=== PATIENT | male | born 1955 | race African-American/Black ===

== ENCOUNTER 2019-06-11 01:50 | Inpatient (IN) ==
[2019-06-11] MEDS ORDERED: ETOMIDATE 20 MG/10 ML VIAL IV ONE ×2 (02:10→03:09)
[2019-06-11] MEDS ORDERED: ROCURONIUM 100 MG/10 ML VIAL IV ONE (02:10)
[2019-06-11 02:48] LABS: Basophils % 0.3 % (0.0-0.8); Eosinophils # 0.4 10*3/uL (0.0-0.87); Eosinophils % 4.8 % (0.00-10.9); Hematocrit 42.3 VOL% (42.0-52.0); Hemoglobin 13.7 GM/DL (14.0-18.0); Immature Granulocytes % 0.4 %; Immature Granulocytes Absolute 0.04 #; Lymphocytes # 1.4 10*3/uL (1.4-4.0); Lymphocytes % 15.7 % (21.2-54.2); Mean Corpuscular HGB Conc 32.4 GM/DL (32-36); Mean Corpuscular Volume 101.4 FL (87-102); Monocytes % 7.1 % (1.7-12.7); Neutrophils % 71.7 % (38.7-73.9); Platelet Count 262 T/CUMM (130-400); Red Blood Count 4.17 MC/CUMM (3.8-5.5); Red Cell Distribution Width 13.2 % (9.3-17.3); White Blood Count 8.9 T/CUMM (4-12)
[2019-06-11 02:53] LABS: Alanine Aminotransferase 31 U/L (16-61); Albumin 4.1 G/DL (3.4-5.0); Alkaline Phosphatase 105 U/L (45-117); Aspartate Amino Transferase 16 U/L (0-37); Blood Urea Nitrogen 14 MG/DL (7-18); Calcium 9.1 MG/DL (8.5-10.1); Estimated Glom Filtration Rate 100 ML/MIN; Glucose 212 MG/DL (74-106); Osmolality,Calculated 276.1 MOS/KG (273-304); Thyroid Stimulating Hormone 0.968 uIU/ml (0.358-3.74); Total Protein 7.6 G/DL (6.4-8.3)
[2019-06-11 03:00] LABS: PT Patient Result 10.9 SECS (9.8-11.9); Partial Thromboplastin Time 25.1 SECS (23.9-33.8)
[2019-06-11] MEDS ORDERED: HALOPERIDOL 5 MG/ML AMP IM STA (03:09)
[2019-06-11] MEDS ORDERED: ROCURONIUM 100 MG/10 ML VIAL IV STA (03:09)
[2019-06-11 03:11] LABS: ABG Base Excess -1.9 MMOL/L (-2.5-2.5); ABG HCO3 22.8 MMOL/L (20-26); ABG Oxygen Saturation 96.5 % (95-100); ABG PH 7.338 (7.35-7.45); ABG PO2 88.3 MM HG (80-95); ABG TCO2 21.1 MMOL/L (23-27)
[2019-06-11 03:16] LABS: Apearance,Urine CLEAR (Clear); Bacteria,Urine Occasional /HPF (Few); Bilirubin,Urine Negative (Negative); Blood, Urine Negative (Negative); Glucose,Urine (UA) 50 mg/dL (Negative); Ketones,Urine 5 mg/dL (Negative); Nitrite,Urine Negative (Negative); Protein,Urine Negative; RBC,Urine <1 /HPF (0-4); Squamous Epithelial Cell,Urine Occasional /HPF (0-10); Urine Color Yellow (Yellow); Urine Specific Gravity 1.009 (1.001-1.035); Urine Urobilinogen < 2.0 EU/DL (0.2-1.0); WBC,Urine 3 /HPF (0-6)
[2019-06-11 03:23] LABS: Barbiturates Screen,Urine Negative (Negative); Benzodiazepines Screen,Urine Negative (Negative); Cannabinoid Screen,Urine Negative (Negative); Opiate Screen,Urine Positive (Negative); Phencyclidine Screen,Urine Negative (Negative)
[2019-06-11] MEDS ORDERED: DEXTROSE 50% 25 GM/50 ML VIAL IV PRN (03:51)
[2019-06-11] MEDS ORDERED: GLUCAGON 1 MG VIAL IM PRN (03:51)
[2019-06-11] MEDS: MULTIVITAMIN INJ 10 ML in SODIUM CHLORIDE 0.9% 1,000 ML IV SCH (05:08)
[2019-06-11] MEDS: INSULIN REGULAR 100 UNIT/ML SUBCUT SCH ×4 (10:32→21:24)
[2019-06-11] MEDS ORDERED: hydrALAZINE 20 MG/1 ML VIAL IV PRN (10:53)
[2019-06-11] MEDS: cloNIDine 0.2 MG/24 HR PATCH TRANSDERM SCH (11:50)
[2019-06-11] MEDS: CLOPIDOGREL 75 MG TABLET PO SCH (12:15)
[2019-06-11] MEDS: fentaNYL INJ 1,250 MCG in SODIUM CHLORIDE 0.9% 225 ML IV PRN (17:25)
[2019-06-12] MEDS: fentaNYL INJ 1,250 MCG in SODIUM CHLORIDE 0.9% 225 ML IV PRN ×5 (00:35→23:41)
[2019-06-12 04:16] LABS: Basophils % 0.3 % (0.0-0.8); Eosinophils # 0.4 10*3/uL (0.0-0.87); Eosinophils % 3.4 % (0.00-10.9); Hematocrit 42.9 VOL% (42.0-52.0); Hemoglobin 14.2 GM/DL (14.0-18.0); Immature Granulocytes % 0.4 %; Immature Granulocytes Absolute 0.04 #; Lymphocytes % 19.6 % (21.2-54.2); Mean Corpuscular HGB Conc 33.1 GM/DL (32-36); Mean Corpuscular Volume 97.9 FL (87-102); Mean Platelet Volume 9.6 FL (9.6-12.0); Monocytes % 15.6 % (1.7-12.7); Neutrophils % 60.7 % (38.7-73.9); Platelet Count 262 T/CUMM (130-400); Red Blood Count 4.38 MC/CUMM (3.8-5.5); Red Cell Distribution Width 13.4 % (9.3-17.3); White Blood Count 10.2 T/CUMM (4-12)
[2019-06-12 04:31] LABS: Alanine Aminotransferase 29 U/L (16-61); Albumin 3.7 G/DL (3.4-5.0); Alkaline Phosphatase 94 U/L (45-117); Aspartate Amino Transferase 21 U/L (0-37); Bilirubin,Total < 0.39 MG/DL (0.2-1.0); Blood Urea Nitrogen 5 MG/DL (7-18); Calcium 8.7 MG/DL (8.5-10.1); Estimated Glom Filtration Rate 123 ML/MIN; Glucose 201 MG/DL (74-106); Osmolality,Calculated 279.5 MOS/KG (273-304)
[2019-06-12 04:53] LABS: Atypical Lymphocytes Few; Eosinophils 2 % (0-10); Hypochromasia 1+; Lymphocytes 27 % (20-55); Platelet Estimate Normal; Segmented Neutrophils 51 % (50-85); Total Cells Counted 100
[2019-06-12] MEDS: MULTIVITAMIN INJ 10 ML in SODIUM CHLORIDE 0.9% 1,000 ML IV SCH (06:46)
[2019-06-12] MEDS: CLOPIDOGREL 75 MG TABLET PO SCH (09:02)
[2019-06-12] MEDS: INSULIN REGULAR 100 UNIT/ML SUBCUT SCH ×4 (10:03→23:17)
[2019-06-12] MEDS: POTASSIUM CHLORIDE IV SCH ×2 (16:19→23:43)
[2019-06-12] MEDS: MAGNESIUM SULF IV SCH ×2 (16:19→23:43)
[2019-06-12] MEDS: [UNRECOGNIZED DRUG - OTHER] IV SCH ×2 (16:19→23:43)
[2019-06-12] MEDS: ACETAMINOPHEN 325 MG/10.15 ML UDCUP PO PRN (21:45)
[2019-06-13] MEDS: fentaNYL INJ 2,500 MCG in SODIUM CHLORIDE 0.9% 450 ML IV PRN ×2 (01:45→20:40)
[2019-06-13] MEDS: MAGNESIUM SULF IV SCH ×5 (01:49→23:25)
[2019-06-13] MEDS: POTASSIUM CHLORIDE IV SCH ×5 (01:49→23:25)
[2019-06-13] MEDS: [UNRECOGNIZED DRUG - OTHER] IV SCH ×5 (01:49→23:25)
[2019-06-13 03:54] LABS: ABG Base Excess -4.2 MMOL/L (-2.5-2.5); ABG HCO3 20.8 MMOL/L (20-26); ABG Oxygen Saturation 91.6 % (95-100); ABG PCO2 54.5 MM HG (35-48); ABG PH 7.254 (7.35-7.45); ABG PO2 74.1 MM HG (80-95); ABG TCO2 21.3 MMOL/L (23-27); Allen Test Positive; Pt O2 Delivery Device Ventilator
[2019-06-13] MEDS ORDERED: FUROSEMIDE 40 MG/4 ML VIAL IV ONE (09:03)
[2019-06-13] MEDS: ACYCLOVIR INJ 750 MG in SODIUM CHLORIDE 0.9% 250 ML IV SCH ×3 (09:19→23:30)
[2019-06-13] MEDS: CLOPIDOGREL 75 MG TABLET PO SCH (09:19)
[2019-06-13] MEDS: MULTIVITAMIN INJ 10 ML in SODIUM CHLORIDE 0.9% 1,000 ML IV SCH (09:19)
[2019-06-13] MEDS: INSULIN REGULAR 100 UNIT/ML SUBCUT SCH ×4 (10:00→20:13)
[2019-06-13] MEDS: ACETAMINOPHEN 325 MG/10.15 ML UDCUP PO PRN ×2 (10:00→20:01)
[2019-06-13 12:38] LABS: Basophils # 0.1 10*3/uL (0.0-0.2); Basophils % 0.4 % (0.0-0.8); Eosinophils # 0.2 10*3/uL (0.0-0.87); Eosinophils % 1.3 % (0.00-10.9); Hematocrit 41.9 VOL% (42.0-52.0); Hemoglobin 13.4 GM/DL (14.0-18.0); Immature Granulocytes % 1.5 %; Immature Granulocytes Absolute 0.21 #; Lymphocytes # 0.8 10*3/uL (1.4-4.0); Lymphocytes % 5.5 % (21.2-54.2); Mean Corpuscular Volume 102.7 FL (87-102); Monocytes % 10.9 % (1.7-12.7); Neutrophils % 80.4 % (38.7-73.9); Platelet Count 206 T/CUMM (130-400); Red Blood Count 4.08 MC/CUMM (3.8-5.5); Red Cell Distribution Width 13.7 % (9.3-17.3); White Blood Count 14.3 T/CUMM (4-12)
[2019-06-13 12:55] LABS: Albumin 2.7 G/DL (3.4-5.0); Bilirubin,Total 0.6 MG/DL (0.2-1.0); Osmolality,Calculated 275.7 MOS/KG (273-304); Total Protein 6.3 G/DL (6.4-8.3)
[2019-06-13 13:07] LABS: Band Neutrophils 2 % (0-10); Lymphocytes 4 % (20-55); Platelet Estimate Normal; Segmented Neutrophils 83 % (50-85); Total Cells Counted 100
[2019-06-13 13:08] LABS: Macrocytosis Slight
[2019-06-13] MEDS: PHENYLEPHRINE DRIP 40 MG/250 ML PREMIX IV PRN (13:10)
[2019-06-13] MEDS ORDERED: SODIUM CHLORIDE 0.9% 500 ML IV ONE (14:05)
[2019-06-13] MEDS ORDERED: MEROPENEM 2,000 MG in SODIUM CHLORIDE 0.9% 100 ML IV SCH (15:00)
[2019-06-13 15:47] LABS: ABG Base Excess -3.6 MMOL/L (-2.5-2.5); ABG HCO3 20.6 MMOL/L (20-26); ABG Oxygen Saturation 56.9 % (95-100); ABG PCO2 54.6 MM HG (35-48); ABG PH 7.259 (7.35-7.45); ABG TCO2 22.1 MMOL/L (23-27)
[2019-06-13] MEDS: VANCOMYCIN INJ 1,250 MG in SODIUM CHLORIDE 0.9% 250 ML IV SCH (17:10)
[2019-06-13] MEDS: MEROPENEM 500 MG in SODIUM CHLORIDE 0.9% 100 ML IV SCH ×2 (17:10→23:27)
[2019-06-14] MEDS: PHENYLEPHRINE DRIP 40 MG/250 ML PREMIX IV PRN ×3 (00:03→13:06)
[2019-06-14] MEDS: MAGNESIUM SULF IV SCH ×2 (04:11→08:46)
[2019-06-14] MEDS: [UNRECOGNIZED DRUG - OTHER] IV SCH ×2 (04:11→08:46)
[2019-06-14] MEDS: POTASSIUM CHLORIDE IV SCH ×2 (04:11→08:46)
[2019-06-14 04:58] LABS: ABG Base Excess -5.6 MMOL/L (-2.5-2.5); ABG HCO3 19.8 MMOL/L (20-26); ABG Oxygen Saturation 94.3 % (95-100); ABG PCO2 44.5 MM HG (35-48); ABG PH 7.284 (7.35-7.45); ABG PO2 74.7 MM HG (80-95); ABG TCO2 19.1 MMOL/L (23-27); Allen Test Positive; Pt O2 Delivery Device Ventilator
[2019-06-14] MEDS: ACETAMINOPHEN 325 MG/10.15 ML UDCUP PO PRN ×2 (05:00→14:30)
[2019-06-14 05:55] LABS: Albumin 2.1 G/DL (3.4-5.0); Bilirubin,Total 0.6 MG/DL (0.2-1.0); Calcium 7.2 MG/DL (8.5-10.1); Osmolality,Calculated 273.8 MOS/KG (273-304); Total Protein 5.5 G/DL (6.4-8.3)
[2019-06-14] MEDS: VANCOMYCIN INJ 1,250 MG in SODIUM CHLORIDE 0.9% 250 ML IV SCH ×2 (05:58→16:30)
[2019-06-14] MEDS: fentaNYL INJ 2,500 MCG in SODIUM CHLORIDE 0.9% 450 ML IV PRN ×2 (06:21→18:23)
[2019-06-14] MEDS: MEROPENEM 500 MG in SODIUM CHLORIDE 0.9% 100 ML IV SCH ×3 (07:54→23:18)
[2019-06-14] MEDS: ACYCLOVIR INJ 750 MG in SODIUM CHLORIDE 0.9% 250 ML IV SCH ×3 (07:54→23:52)
[2019-06-14] MEDS: CLOPIDOGREL 75 MG TABLET PO SCH (08:24)
[2019-06-14] MEDS: INSULIN REGULAR 100 UNIT/ML SUBCUT SCH ×4 (08:24→23:18)
[2019-06-14] MEDS: MULTIVITAMIN INJ 10 ML in SODIUM CHLORIDE 0.9% 1,000 ML IV SCH (09:07)
[2019-06-14] MEDS ORDERED: LORazepam 2 MG/1 ML VIAL IV PRN (10:58)
[2019-06-14 13:11] LABS: Basophils # 0.1 10*3/uL (0.0-0.2); Basophils % 0.4 % (0.0-0.8); Eosinophils # 0.5 10*3/uL (0.0-0.87); Eosinophils % 3.7 % (0.00-10.9); Hematocrit 37.1 VOL% (42.0-52.0); Hemoglobin 11.7 GM/DL (14.0-18.0); Immature Granulocytes % 1.2 %; Immature Granulocytes Absolute 0.17 #; Lymphocytes # 1.1 10*3/uL (1.4-4.0); Lymphocytes % 7.8 % (21.2-54.2); Mean Corpuscular HGB Conc 31.5 GM/DL (32-36); Mean Corpuscular Volume 104.5 FL (87-102); Monocytes % 13.9 % (1.7-12.7); Platelet Count 186 T/CUMM (130-400); Red Blood Count 3.55 MC/CUMM (3.8-5.5); Red Cell Distribution Width 13.6 % (9.3-17.3); White Blood Count 14.6 T/CUMM (4-12)
[2019-06-14 13:44] LABS: Band Neutrophils 12 % (0-10); Burr Cells Slight; Eosinophils 4 % (0-10); Lymphocytes 5 % (20-55); Metamyelocytes 1 %; Ovalocytes Few; Polychromasia Slight; Segmented Neutrophils 63 % (50-85); Total Cells Counted 100
[2019-06-14 13:45] LABS: Platelet Estimate Adequate
[2019-06-14] MEDS: SODIUM CHLORIDE 0.9% 1,000 ML IV SCH ×2 (19:01→23:27)
[2019-06-15] MEDS: fentaNYL INJ 2,500 MCG in SODIUM CHLORIDE 0.9% 450 ML IV PRN ×4 (00:52→20:55)
[2019-06-15] MEDS: SODIUM CHLORIDE 0.9% 1,000 ML IV SCH ×4 (03:00→18:16)
[2019-06-15 05:47] LABS: Basophils # 0.1 10*3/uL (0.0-0.2); Basophils % 0.4 % (0.0-0.8); Eosinophils # 0.4 10*3/uL (0.0-0.87); Eosinophils % 2.4 % (0.00-10.9); Hematocrit 31.3 VOL% (42.0-52.0); Immature Granulocytes % 0.9 %; Immature Granulocytes Absolute 0.14 #; Lymphocytes # 0.8 10*3/uL (1.4-4.0); Lymphocytes % 5.2 % (21.2-54.2); Mean Corpuscular HGB Conc 31.9 GM/DL (32-36); Mean Corpuscular Volume 104.3 FL (87-102); Monocytes % 12.8 % (1.7-12.7); Neutrophils % 78.3 % (38.7-73.9); Platelet Count 161 T/CUMM (130-400); Red Cell Distribution Width 13.9 % (9.3-17.3); White Blood Count 15.1 T/CUMM (4-12)
[2019-06-15] MEDS: VANCOMYCIN INJ 1,250 MG in SODIUM CHLORIDE 0.9% 250 ML IV SCH ×2 (05:48→18:13)
[2019-06-15 06:13] LABS: Albumin 1.8 G/DL (3.4-5.0); Bilirubin,Total 0.6 MG/DL (0.2-1.0)
[2019-06-15 06:14] LABS: Prealbumin 4.6 MG/DL (20-40)
[2019-06-15 06:39] LABS: Atypical Lymphocytes Few; Band Neutrophils 3 % (0-10); Eosinophils 3 % (0-10); Hypochromasia Slight; Lymphocytes 7 % (20-55); Metamyelocytes 2 %; Segmented Neutrophils 77 % (50-85); Total Cells Counted 100
[2019-06-15 06:40] LABS: Macrocytosis Slight; Platelet Estimate Adequate
[2019-06-15] MEDS: MEROPENEM 500 MG in SODIUM CHLORIDE 0.9% 100 ML IV SCH (08:43)
[2019-06-15] MEDS: CLOPIDOGREL 75 MG TABLET PO SCH (08:44)
[2019-06-15] MEDS: ACYCLOVIR INJ 750 MG in SODIUM CHLORIDE 0.9% 250 ML IV SCH ×2 (08:44→16:39)
[2019-06-15] MEDS: MULTIVITAMIN INJ 10 ML in SODIUM CHLORIDE 0.9% 1,000 ML IV SCH (09:31)
[2019-06-15] MEDS: INSULIN REGULAR 100 UNIT/ML SUBCUT SCH ×3 (09:31→18:16)
[2019-06-15] MEDS: PIPERACILLIN/TAZOBACTAM 3,375 MG in SODIUM CHLORIDE 0.9% 100 ML IV SCH ×2 (13:14→20:58)
[2019-06-16] MEDS: INSULIN REGULAR 100 UNIT/ML SUBCUT SCH ×4 (00:43→18:08)
[2019-06-16] MEDS: ACYCLOVIR INJ 750 MG in SODIUM CHLORIDE 0.9% 250 ML IV SCH ×3 (01:06→16:24)
[2019-06-16] MEDS: SODIUM CHLORIDE 0.9% 1,000 ML IV SCH ×2 (01:07→09:47)
[2019-06-16] MEDS: fentaNYL INJ 2,500 MCG in SODIUM CHLORIDE 0.9% 450 ML IV PRN ×4 (02:28→22:54)
[2019-06-16] MEDS: PIPERACILLIN/TAZOBACTAM 3,375 MG in SODIUM CHLORIDE 0.9% 100 ML IV SCH ×3 (04:28→21:27)
[2019-06-16 04:36] LABS: ABG Base Excess -6.9 MMOL/L (-2.5-2.5); ABG HCO3 18.7 MMOL/L (20-26); ABG Oxygen Saturation 91.6 % (95-100); ABG PCO2 44.2 MM HG (35-48); ABG PH 7.264 (7.35-7.45); ABG PO2 63.3 MM HG (80-95); ABG TCO2 18.3 MMOL/L (23-27); Allen Test Positive; Pt O2 Delivery Device Ventilator
[2019-06-16] MEDS: VANCOMYCIN INJ 1,250 MG in SODIUM CHLORIDE 0.9% 250 ML IV SCH (05:13)
[2019-06-16 05:20] LABS: Basophils % 0.2 % (0.0-0.8); Eosinophils % 7.1 % (0.00-10.9); Hematocrit 29.2 VOL% (42.0-52.0); Hemoglobin 9.2 GM/DL (14.0-18.0); Immature Granulocytes % 1.7 %; Immature Granulocytes Absolute 0.23 #; Lymphocytes # 0.7 10*3/uL (1.4-4.0); Lymphocytes % 4.9 % (21.2-54.2); Mean Corpuscular HGB Conc 31.5 GM/DL (32-36); Mean Corpuscular Volume 102.1 FL (87-102); Mean Platelet Volume 10.1 FL (9.6-12.0); Monocytes % 11.9 % (1.7-12.7); Neutrophils % 74.2 % (38.7-73.9); Platelet Count 155 T/CUMM (130-400); Red Blood Count 2.86 MC/CUMM (3.8-5.5); White Blood Count 13.7 T/CUMM (4-12)
[2019-06-16 05:56] LABS: Albumin 1.5 G/DL (3.4-5.0); Bilirubin,Total 0.6 MG/DL (0.2-1.0); Calcium 7.2 MG/DL (8.5-10.1); Osmolality,Calculated 289.6 MOS/KG (273-304); Total Protein 4.6 G/DL (6.4-8.3)
[2019-06-16 06:33] LABS: Band Neutrophils 2 % (0-10); Eosinophils 9 % (0-10); Lymphocytes 7 % (20-55); Segmented Neutrophils 67 % (50-85); Total Cells Counted 100
[2019-06-16 06:34] LABS: Anisocytosis 1+; Ovalocytes Few; Platelet Estimate Normal
[2019-06-16] MEDS ORDERED: MAGNESIUM SULF RIDER 2 GM in PREMIX 1 EACH IV PRN (08:15)
[2019-06-16] MEDS: CLOPIDOGREL 75 MG TABLET PO SCH (09:12)
[2019-06-16] MEDS: MULTIVITAMIN INJ 10 ML in SODIUM CHLORIDE 0.9% 1,000 ML IV SCH (09:13)
[2019-06-16] MEDS: POTASSIUM CHLORIDE 20 MEQ/15 ML UDCUP PER TUBE PRN ×2 (09:38→12:50)
[2019-06-16] MEDS ORDERED: DILTIAZEM 50 MG/10 ML VIAL IV ONE (11:08)
[2019-06-16] MEDS ORDERED: hydrALAZINE 20 MG/1 ML VIAL IV PRN (11:12)
[2019-06-16] MEDS: FUROSEMIDE 40 MG/4 ML VIAL IV SCH ×4 (11:20→22:55)
[2019-06-16] MEDS: dilTIAZem Drip 125 MG/125 ML PREMIX IV SCH (11:24)
[2019-06-16] MEDS ORDERED: AMIODARONE 150 MG/3 ML VIAL ONE ×2 (11:54→12:27)
[2019-06-16] MEDS ORDERED: AMIODARONE 450 MG/9 ML VIAL IV ONE (11:54)
[2019-06-16] MEDS ORDERED: AMIODARONE INJ 150 MG in DEXTROSE 5% 100 ML IV ONE ×2 (11:56→12:29)
[2019-06-16] MEDS ORDERED: AMIODARONE INJ 450 MG in DEXTROSE 5% 241 ML IV SCH (12:00)
[2019-06-16 12:26] LABS: Thyroid Stimulating Hormone 0.322 uIU/ml (0.358-3.74); Troponin I < 0.015 NG/ML (0.00-0.045)
[2019-06-16] MEDS: ACETAMINOPHEN 325 MG/10.15 ML UDCUP PO PRN (12:49)
[2019-06-16] MEDS: METOPROLOL TARTRATE 25 MG TABLET PO SCH ×2 (14:17→21:28)
[2019-06-16] MEDS: VANCOMYCIN INJ 1,000 MG in SODIUM CHLORIDE 0.9% 250 ML IV SCH (16:23)
[2019-06-16] MEDS: AMIODARONE INJ 450 MG in DEXTROSE 5% 241 ML IV SCH ×2 (20:35→23:00)
[2019-06-17] MEDS: ACYCLOVIR INJ 750 MG in SODIUM CHLORIDE 0.9% 250 ML IV SCH ×3 (00:11→19:47)
[2019-06-17] MEDS: dilTIAZem Drip 125 MG/125 ML PREMIX IV SCH ×3 (00:36→19:44)
[2019-06-17] MEDS: INSULIN REGULAR 100 UNIT/ML SUBCUT SCH ×4 (00:36→18:05)
[2019-06-17 04:45] LABS: ABG Oxygen Saturation 89.1 % (95-100); ABG PCO2 53.8 MM HG (35-48); ABG PH 7.256 (7.35-7.45); ABG PO2 55.8 MM HG (80-95); ABG TCO2 21.7 MMOL/L (23-27)
[2019-06-17 04:50] LABS: Basophils # 0.1 10*3/uL (0.0-0.2); Basophils % 0.3 % (0.0-0.8); Eosinophils # 0.7 10*3/uL (0.0-0.87); Eosinophils % 4.5 % (0.00-10.9); Hematocrit 34.9 VOL% (42.0-52.0); Hemoglobin 10.9 GM/DL (14.0-18.0); Immature Granulocytes Absolute 0.98 #; Lymphocytes # 0.9 10*3/uL (1.4-4.0); Lymphocytes % 5.6 % (21.2-54.2); Mean Corpuscular HGB Conc 31.2 GM/DL (32-36); Mean Corpuscular Volume 103.6 FL (87-102); Mean Platelet Volume 10.1 FL (9.6-12.0); Monocytes % 15.3 % (1.7-12.7); Neutrophils % 68.3 % (38.7-73.9); Platelet Count 189 T/CUMM (130-400); Red Blood Count 3.37 MC/CUMM (3.8-5.5); Red Cell Distribution Width 14.4 % (9.3-17.3); White Blood Count 16.4 T/CUMM (4-12)
[2019-06-17 05:29] LABS: Calcium 7.6 MG/DL (8.5-10.1); Osmolality,Calculated 291.8 MOS/KG (273-304)
[2019-06-17] MEDS: VANCOMYCIN INJ 1,000 MG in SODIUM CHLORIDE 0.9% 250 ML IV SCH ×2 (05:31→17:35)
[2019-06-17] MEDS: PIPERACILLIN/TAZOBACTAM 3,375 MG in SODIUM CHLORIDE 0.9% 100 ML IV SCH ×3 (05:31→21:54)
[2019-06-17 06:26] LABS: Anisocytosis Slight; Band Neutrophils 26 % (0-10); Eosinophils 6 % (0-10); Lymphocytes 7 % (20-55); Metamyelocytes 2 %; Myelocytes 2 %; Platelet Estimate Normal; Segmented Neutrophils 45 % (50-85); Spherocytes Few; Total Cells Counted 100
[2019-06-17] MEDS: fentaNYL INJ 2,500 MCG in SODIUM CHLORIDE 0.9% 450 ML IV PRN ×2 (08:11→18:40)
[2019-06-17 08:48] LABS: Alanine Aminotransferase 30 U/L (16-61); Aspartate Amino Transferase 19 U/L (0-37)
[2019-06-17] MEDS: METOPROLOL TARTRATE 25 MG TABLET PO SCH ×2 (09:57→21:57)
[2019-06-17] MEDS: CLOPIDOGREL 75 MG TABLET PO SCH (09:57)
[2019-06-17] MEDS: AMIODARONE INJ 450 MG in DEXTROSE 5% 241 ML IV SCH ×2 (11:51→14:40)
[2019-06-17] MEDS: LEVOFLOXACIN INJ 500 MG in PREMIX 1 EACH IV SCH (13:30)
[2019-06-17] MEDS: POTASSIUM CHLORIDE RIDER 10 MEQ in PREMIX 1 EACH IV PRN ×2 (16:55→19:45)
[2019-06-18] MEDS: AMIODARONE INJ 450 MG in DEXTROSE 5% 241 ML IV SCH ×2 (00:48→05:40)
[2019-06-18] MEDS: INSULIN REGULAR 100 UNIT/ML SUBCUT SCH ×4 (01:11→18:12)
[2019-06-18] MEDS: POTASSIUM CHLORIDE 20 MEQ/15 ML UDCUP PER TUBE PRN ×4 (02:10→11:32)
[2019-06-18] MEDS: ACYCLOVIR INJ 750 MG in SODIUM CHLORIDE 0.9% 250 ML IV SCH ×3 (03:00→20:35)
[2019-06-18] MEDS: PIPERACILLIN/TAZOBACTAM 3,375 MG in SODIUM CHLORIDE 0.9% 100 ML IV SCH (05:23)
[2019-06-18] MEDS: fentaNYL INJ 2,500 MCG in SODIUM CHLORIDE 0.9% 450 ML IV PRN ×2 (05:23→17:12)
[2019-06-18] MEDS: VANCOMYCIN INJ 1,000 MG in SODIUM CHLORIDE 0.9% 250 ML IV SCH ×2 (05:25→16:33)
[2019-06-18 05:32] LABS: Basophils # 0.1 10*3/uL (0.0-0.2); Basophils % 0.5 % (0.0-0.8); Eosinophils # 1.1 10*3/uL (0.0-0.87); Hematocrit 29.1 VOL% (42.0-52.0); Hemoglobin 9.6 GM/DL (14.0-18.0); Immature Granulocytes % 5.8 %; Immature Granulocytes Absolute 0.77 #; Lymphocytes # 1.1 10*3/uL (1.4-4.0); Lymphocytes % 8.5 % (21.2-54.2); Mean Corpuscular Volume 100.3 FL (87-102); Mean Platelet Volume 10.3 FL (9.6-12.0); Monocytes % 15.3 % (1.7-12.7); Neutrophils % 61.9 % (38.7-73.9); Platelet Count 181 T/CUMM (130-400); Red Cell Distribution Width 14.6 % (9.3-17.3); White Blood Count 13.2 T/CUMM (4-12)
[2019-06-18 05:51] LABS: Band Neutrophils 2 % (0-10); Eosinophils 6 % (0-10); Lymphocytes 8 % (20-55); Metamyelocytes 1 %; Myelocytes 1 %; Segmented Neutrophils 65 % (50-85); Total Cells Counted 100
[2019-06-18 05:52] LABS: Hypochromasia Slight
[2019-06-18 05:53] LABS: Macrocytosis Slight; Platelet Estimate Adequate
[2019-06-18] MEDS: cloNIDine 0.2 MG/24 HR PATCH TRANSDERM SCH (08:41)
[2019-06-18] MEDS: METOPROLOL TARTRATE 25 MG TABLET PO SCH ×2 (08:41→21:52)
[2019-06-18] MEDS: CLOPIDOGREL 75 MG TABLET PO SCH (08:42)
[2019-06-18] MEDS: dilTIAZem Drip 125 MG/125 ML PREMIX IV SCH ×2 (09:01→21:55)
[2019-06-18] MEDS: LEVOFLOXACIN INJ 500 MG in PREMIX 1 EACH IV SCH (11:32)
[2019-06-18] MEDS: AMIODARONE 200 MG TABLET PO SCH ×2 (13:41→21:52)
[2019-06-18] MEDS: FUROSEMIDE 40 MG/4 ML VIAL IV SCH (16:34)
[2019-06-19] MEDS: ACYCLOVIR INJ 750 MG in SODIUM CHLORIDE 0.9% 250 ML IV SCH ×3 (03:44→21:57)
[2019-06-19] MEDS: fentaNYL INJ 2,500 MCG in SODIUM CHLORIDE 0.9% 450 ML IV PRN ×2 (03:45→12:51)
[2019-06-19 04:42] LABS: ABG Base Excess 3.1 MMOL/L (-2.5-2.5); ABG HCO3 27.1 MMOL/L (20-26); ABG Oxygen Saturation 96.8 % (95-100); ABG PCO2 49.8 MM HG (35-48); ABG PH 7.374 (7.35-7.45); ABG PO2 83.1 MM HG (80-95); ABG TCO2 26.5 MMOL/L (23-27); Allen Test Positive; Pt O2 Delivery Device Ventilator
[2019-06-19] MEDS: INSULIN REGULAR 100 UNIT/ML SUBCUT SCH ×4 (04:43→18:16)
[2019-06-19] MEDS: VANCOMYCIN INJ 1,000 MG in SODIUM CHLORIDE 0.9% 250 ML IV SCH ×2 (04:45→16:37)
[2019-06-19 06:14] LABS: Basophils % 0.3 % (0.0-0.8); Eosinophils # 0.9 10*3/uL (0.0-0.87); Eosinophils % 6.5 % (0.00-10.9); Hematocrit 30.7 VOL% (42.0-52.0); Immature Granulocytes % 5.1 %; Lymphocytes # 0.8 10*3/uL (1.4-4.0); Lymphocytes % 6.1 % (21.2-54.2); Mean Corpuscular HGB Conc 32.6 GM/DL (32-36); Mean Corpuscular Volume 100.7 FL (87-102); Mean Platelet Volume 10.2 FL (9.6-12.0); Monocytes % 11.5 % (1.7-12.7); Neutrophils % 70.5 % (38.7-73.9); Platelet Count 261 T/CUMM (130-400); Red Blood Count 3.05 MC/CUMM (3.8-5.5); Red Cell Distribution Width 14.3 % (9.3-17.3); White Blood Count 13.7 T/CUMM (4-12)
[2019-06-19 06:32] LABS: Eosinophils 8 % (0-10); Hypochromasia 1+; Lymphocytes 6 % (20-55); Nucleated Red Blood Cells 1 (0-5); Platelet Estimate Adequate; Segmented Neutrophils 81 % (50-85); Total Cells Counted 100
[2019-06-19 06:33] LABS: Macrocytosis Slight
[2019-06-19] MEDS ORDERED: POTASSIUM CHLORIDE 20 MEQ/15 ML UDCUP PER TUBE ONE (09:02)
[2019-06-19] MEDS: FUROSEMIDE 40 MG/4 ML VIAL IV SCH ×2 (09:12→16:15)
[2019-06-19] MEDS: AMIODARONE 200 MG TABLET PO SCH ×2 (09:22→22:28)
[2019-06-19] MEDS: METOPROLOL TARTRATE 25 MG TABLET PO SCH ×2 (09:22→22:26)
[2019-06-19] MEDS: CLOPIDOGREL 75 MG TABLET PO SCH (09:22)
[2019-06-19] MEDS: ASPIRIN CHEW 81 MG TABLET PO SCH (10:00)
[2019-06-19] MEDS: ENOXAPARIN 100 MG/ML SYRINGE SUBCUT SCH ×2 (10:00→22:26)
[2019-06-19] MEDS: LEVOFLOXACIN INJ 500 MG in PREMIX 1 EACH IV SCH (11:20)
[2019-06-19] MEDS: DILTIAZEM 60 MG TABLET PO SCH ×3 (12:59→22:30)
[2019-06-19] MEDS ORDERED: fentaNYL 50 MCG/HR PATCH TRANSDERM SCH (14:30)
[2019-06-19] MEDS: dilTIAZem Drip 125 MG/125 ML PREMIX IV SCH (14:34)
[2019-06-19] MEDS: POTASSIUM CHLORIDE 20 MEQ/15 ML UDCUP PO SCH (22:27)
[2019-06-19] MEDS: ATORVASTATIN 40 MG TABLET PO SCH (22:27)
[2019-06-20] MEDS: INSULIN REGULAR 100 UNIT/ML SUBCUT SCH ×5 (02:45→23:11)
[2019-06-20] MEDS: fentaNYL INJ 2,500 MCG in SODIUM CHLORIDE 0.9% 450 ML IV PRN (02:48)
[2019-06-20] MEDS: ACYCLOVIR INJ 750 MG in SODIUM CHLORIDE 0.9% 250 ML IV SCH ×3 (03:19→20:31)
[2019-06-20] MEDS: dilTIAZem Drip 125 MG/125 ML PREMIX IV SCH ×2 (03:38→11:29)
[2019-06-20 04:33] LABS: ABG HCO3 30.2 MMOL/L (20-26); ABG Oxygen Saturation 99.1 % (95-100); ABG PCO2 42.6 MM HG (35-48); ABG PH 7.469 (7.35-7.45); ABG PO2 310.7 MM HG (80-95); ABG TCO2 31.5 MMOL/L (23-27)
[2019-06-20 06:11] LABS: Basophils # 0.1 10*3/uL (0.0-0.2); Basophils % 0.4 % (0.0-0.8); Hematocrit 27.4 VOL% (42.0-52.0); Hemoglobin 9.1 GM/DL (14.0-18.0); Immature Granulocytes % 5.4 %; Immature Granulocytes Absolute 0.88 #; Lymphocytes # 1.3 10*3/uL (1.4-4.0); Lymphocytes % 8.2 % (21.2-54.2); Mean Corpuscular HGB Conc 33.2 GM/DL (32-36); Mean Platelet Volume 9.9 FL (9.6-12.0); Monocytes % 8.9 % (1.7-12.7); Neutrophils % 71.1 % (38.7-73.9); Platelet Count 286 T/CUMM (130-400); Red Blood Count 2.74 MC/CUMM (3.8-5.5); Red Cell Distribution Width 14.3 % (9.3-17.3); White Blood Count 16.3 T/CUMM (4-12)
[2019-06-20 06:29] LABS: Band Neutrophils 1 % (0-10); Eosinophils 13 % (0-10); Hypochromasia 1+; Lymphocytes 5 % (20-55); Platelet Estimate Adequate; Segmented Neutrophils 75 % (50-85); Total Cells Counted 100
[2019-06-20 06:30] LABS: Macrocytosis Slight
[2019-06-20 06:32] LABS: Albumin 1.4 G/DL (3.4-5.0); Bilirubin,Total 0.4 MG/DL (0.2-1.0); Total Protein 5.7 G/DL (6.4-8.3)
[2019-06-20] MEDS: VANCOMYCIN INJ 1,000 MG in SODIUM CHLORIDE 0.9% 250 ML IV SCH ×2 (07:17→16:51)
[2019-06-20] MEDS: POTASSIUM CHLORIDE 20 MEQ/15 ML UDCUP PO SCH ×2 (08:02→20:49)
[2019-06-20] MEDS: AMIODARONE 200 MG TABLET PO SCH ×2 (08:02→20:48)
[2019-06-20] MEDS: FUROSEMIDE 40 MG/4 ML VIAL IV SCH ×2 (08:02→16:08)
[2019-06-20] MEDS: CLOPIDOGREL 75 MG TABLET PO SCH (08:03)
[2019-06-20] MEDS: METOPROLOL TARTRATE 25 MG TABLET PO SCH ×2 (08:03→20:49)
[2019-06-20] MEDS: DILTIAZEM 60 MG TABLET PO SCH ×4 (08:03→20:48)
[2019-06-20] MEDS: ASPIRIN CHEW 81 MG TABLET PO SCH (08:03)
[2019-06-20] MEDS: POTASSIUM CHLORIDE RIDER 10 MEQ in PREMIX 1 EACH IV PRN ×3 (08:20→09:21)
[2019-06-20] MEDS: ASCORBIC ACID 500 MG TABLET PO SCH ×2 (08:20→20:49)
[2019-06-20] MEDS: ENOXAPARIN 100 MG/ML SYRINGE SUBCUT SCH ×2 (08:53→20:49)
[2019-06-20] MEDS: fentaNYL 100 MCG/HR PATCH TRANSDERM SCH (11:10)
[2019-06-20] MEDS: LEVOFLOXACIN INJ 500 MG in PREMIX 1 EACH IV SCH (11:29)
[2019-06-20] MEDS: ATORVASTATIN 40 MG TABLET PO SCH (20:48)
[2019-06-21] MEDS: ACYCLOVIR INJ 750 MG in SODIUM CHLORIDE 0.9% 250 ML IV SCH ×3 (03:19→19:38)
[2019-06-21 03:53] LABS: Basophils % 0.3 % (0.0-0.8); Eosinophils # 0.9 10*3/uL (0.0-0.87); Eosinophils % 5.4 % (0.00-10.9); Hematocrit 26.4 VOL% (42.0-52.0); Hemoglobin 8.7 GM/DL (14.0-18.0); Immature Granulocytes Absolute 0.64 #; Lymphocytes # 1.4 10*3/uL (1.4-4.0); Lymphocytes % 8.7 % (21.2-54.2); Mean Corpuscular Volume 99.2 FL (87-102); Monocytes % 7.1 % (1.7-12.7); NRBC # 0.02 10*3/uL; Neutrophils % 74.5 % (38.7-73.9); Platelet Count 342 T/CUMM (130-400); Red Blood Count 2.66 MC/CUMM (3.8-5.5); Red Cell Distribution Width 14.2 % (9.3-17.3); White Blood Count 15.9 T/CUMM (4-12)
[2019-06-21] MEDS: VANCOMYCIN INJ 1,000 MG in SODIUM CHLORIDE 0.9% 250 ML IV SCH (04:00)
[2019-06-21 04:13] LABS: Albumin 1.5 G/DL (3.4-5.0); Bilirubin,Total 0.4 MG/DL (0.2-1.0); Calcium 8.1 MG/DL (8.5-10.1); Osmolality,Calculated 292.8 MOS/KG (273-304); Total Protein 5.6 G/DL (6.4-8.3)
[2019-06-21 04:15] LABS: Prealbumin 4.1 MG/DL (20-40)
[2019-06-21] MEDS: POTASSIUM CHLORIDE RIDER 10 MEQ in PREMIX 1 EACH IV PRN ×3 (04:20→19:30)
[2019-06-21] MEDS: POTASSIUM CHLORIDE RIDER 20 MEQ in PREMIX 1 EACH IV PRN ×3 (04:20→17:15)
[2019-06-21 04:29] LABS: Eosinophils 8 % (0-10); Hypochromasia 1+; Lymphocytes 4 % (20-55); Macrocytosis Slight; Nucleated Red Blood Cells 1 (0-5); Ovalocytes Slight; Platelet Estimate Adequate; Segmented Neutrophils 84 % (50-85); Total Cells Counted 100
[2019-06-21] MEDS ORDERED: POTASSIUM CHLORIDE RIDER 200 ML IV ONE (04:33)
[2019-06-21] MEDS: INSULIN REGULAR 100 UNIT/ML SUBCUT SCH ×3 (05:04→17:21)
[2019-06-21] MEDS: ASCORBIC ACID 500 MG TABLET PO SCH ×2 (08:00→20:21)
[2019-06-21] MEDS: POTASSIUM CHLORIDE 20 MEQ/15 ML UDCUP PO SCH ×4 (08:00→20:20)
[2019-06-21] MEDS: AMIODARONE 200 MG TABLET PO SCH ×2 (08:01→20:22)
[2019-06-21] MEDS: METOPROLOL TARTRATE 25 MG TABLET PO SCH ×2 (08:01→20:21)
[2019-06-21] MEDS: FUROSEMIDE 40 MG/4 ML VIAL IV SCH ×2 (08:01→16:49)
[2019-06-21] MEDS: DILTIAZEM 60 MG TABLET PO SCH ×4 (08:01→20:21)
[2019-06-21] MEDS: CLOPIDOGREL 75 MG TABLET PO SCH (08:01)
[2019-06-21] MEDS: ASPIRIN CHEW 81 MG TABLET PO SCH (08:01)
[2019-06-21] MEDS: ENOXAPARIN 100 MG/ML SYRINGE SUBCUT SCH ×3 (08:36→20:38)
[2019-06-21] MEDS: dilTIAZem Drip 125 MG/125 ML PREMIX IV SCH (12:02)
[2019-06-21] MEDS: LEVOFLOXACIN INJ 500 MG in PREMIX 1 EACH IV SCH (12:06)
[2019-06-21] MEDS: ATORVASTATIN 40 MG TABLET PO SCH (20:23)
[2019-06-22] MEDS: INSULIN REGULAR 100 UNIT/ML SUBCUT SCH ×4 (00:06→19:10)
[2019-06-22] MEDS: ACYCLOVIR INJ 750 MG in SODIUM CHLORIDE 0.9% 250 ML IV SCH ×3 (02:36→20:38)
[2019-06-22 04:07] LABS: Basophils % 0.3 % (0.0-0.8); Eosinophils # 0.8 10*3/uL (0.0-0.87); Eosinophils % 7.1 % (0.00-10.9); Hematocrit 27.1 VOL% (42.0-52.0); Hemoglobin 9.1 GM/DL (14.0-18.0); Immature Granulocytes % 3.1 %; Immature Granulocytes Absolute 0.37 #; Lymphocytes # 1.2 10*3/uL (1.4-4.0); Lymphocytes % 10.5 % (21.2-54.2); Mean Corpuscular HGB Conc 33.6 GM/DL (32-36); Mean Corpuscular Volume 98.9 FL (87-102); Monocytes % 5.9 % (1.7-12.7); Neutrophils % 73.1 % (38.7-73.9); Platelet Count 375 T/CUMM (130-400); Red Blood Count 2.74 MC/CUMM (3.8-5.5); White Blood Count 11.8 T/CUMM (4-12)
[2019-06-22] MEDS: VANCOMYCIN INJ 1,000 MG in SODIUM CHLORIDE 0.9% 250 ML IV SCH (04:11)
[2019-06-22 04:23] LABS: Osmolality,Calculated 288.1 MOS/KG (273-304)
[2019-06-22] MEDS: POTASSIUM CHLORIDE RIDER 20 MEQ in PREMIX 1 EACH IV PRN (05:08)
[2019-06-22 05:09] LABS: Allen Test Positive; Pt O2 Delivery Device Ventilator
[2019-06-22 05:10] LABS: ABG Base Excess 13.3 MMOL/L (-2.5-2.5); ABG Oxygen Saturation 96.5 % (95-100); ABG PH 7.508 (7.35-7.45); ABG PO2 77.6 MM HG (80-95); ABG TCO2 34.8 MMOL/L (23-27)
[2019-06-22 05:37] LABS: Band Neutrophils 4 % (0-10); Eosinophils 7 % (0-10); Lymphocytes 7 % (20-55); Metamyelocytes 1 %; Platelet Estimate Normal; Segmented Neutrophils 75 % (50-85); Total Cells Counted 100
[2019-06-22 05:38] LABS: Anisocytosis 1+; Macrocytosis 1+
[2019-06-22] MEDS: POTASSIUM CHLORIDE RIDER 10 MEQ in PREMIX 1 EACH IV PRN (06:16)
[2019-06-22] MEDS: ASCORBIC ACID 500 MG TABLET PO SCH ×2 (08:13→20:38)
[2019-06-22] MEDS: CLOPIDOGREL 75 MG TABLET PO SCH (08:14)
[2019-06-22] MEDS: DILTIAZEM 60 MG TABLET PO SCH ×4 (08:14→20:38)
[2019-06-22] MEDS: POTASSIUM CHLORIDE 20 MEQ/15 ML UDCUP PO SCH ×3 (08:14→20:38)
[2019-06-22] MEDS: ENOXAPARIN 100 MG/ML SYRINGE SUBCUT SCH ×3 (08:14→20:38)
[2019-06-22] MEDS: METOPROLOL TARTRATE 25 MG TABLET PO SCH ×2 (08:14→20:38)
[2019-06-22] MEDS: ASPIRIN CHEW 81 MG TABLET PO SCH (08:14)
[2019-06-22] MEDS: AMIODARONE 200 MG TABLET PO SCH ×2 (08:14→20:38)
[2019-06-22] MEDS: FUROSEMIDE 40 MG/4 ML VIAL IV SCH ×2 (08:15→17:34)
[2019-06-22] MEDS: LEVOFLOXACIN INJ 500 MG in PREMIX 1 EACH IV SCH (12:00)
[2019-06-22] MEDS: dilTIAZem Drip 125 MG/125 ML PREMIX IV SCH (12:01)
[2019-06-23] MEDS: INSULIN REGULAR 100 UNIT/ML SUBCUT SCH ×4 (02:06→18:19)
[2019-06-23] MEDS: ACYCLOVIR INJ 750 MG in SODIUM CHLORIDE 0.9% 250 ML IV SCH ×3 (04:15→18:30)
[2019-06-23 05:23] LABS: Basophils % 0.4 % (0.0-0.8); Eosinophils # 0.7 10*3/uL (0.0-0.87); Eosinophils % 6.8 % (0.00-10.9); Hematocrit 28.5 VOL% (42.0-52.0); Hemoglobin 9.4 GM/DL (14.0-18.0); Lymphocytes # 1.3 10*3/uL (1.4-4.0); Lymphocytes % 12.7 % (21.2-54.2); Mean Platelet Volume 10.1 FL (9.6-12.0); Monocytes % 7.9 % (1.7-12.7); Neutrophils % 68.2 % (38.7-73.9); Platelet Count 440 T/CUMM (130-400); Red Blood Count 2.85 MC/CUMM (3.8-5.5); Red Cell Distribution Width 13.9 % (9.3-17.3); White Blood Count 10.1 T/CUMM (4-12)
[2019-06-23 05:45] LABS: Band Neutrophils 2 % (0-10); Calcium 8.7 MG/DL (8.5-10.1); Eosinophils 10 % (0-10); Lymphocytes 12 % (20-55); Osmolality,Calculated 289.3 MOS/KG (273-304); Segmented Neutrophils 70 % (50-85); Total Cells Counted 100
[2019-06-23 05:46] LABS: Hypochromasia 1+; Macrocytosis Slight
[2019-06-23] MEDS: VANCOMYCIN INJ 1,000 MG in SODIUM CHLORIDE 0.9% 250 ML IV SCH (06:55)
[2019-06-23] MEDS: FUROSEMIDE 40 MG/4 ML VIAL IV SCH ×2 (08:05→15:22)
[2019-06-23] MEDS: POTASSIUM CHLORIDE 20 MEQ/15 ML UDCUP PO SCH ×3 (08:07→20:42)
[2019-06-23] MEDS: ENOXAPARIN 100 MG/ML SYRINGE SUBCUT SCH ×3 (08:07→20:42)
[2019-06-23] MEDS: METOPROLOL TARTRATE 25 MG TABLET PO SCH ×2 (08:08→20:42)
[2019-06-23] MEDS: ASPIRIN CHEW 81 MG TABLET PO SCH (08:08)
[2019-06-23] MEDS: ASCORBIC ACID 500 MG TABLET PO SCH ×2 (08:08→20:42)
[2019-06-23] MEDS: CLOPIDOGREL 75 MG TABLET PO SCH (08:08)
[2019-06-23] MEDS: AMIODARONE 200 MG TABLET PO SCH ×2 (08:08→20:42)
[2019-06-23] MEDS: DILTIAZEM 60 MG TABLET PO SCH ×4 (08:08→20:41)
[2019-06-23] MEDS: fentaNYL 100 MCG/HR PATCH TRANSDERM SCH (10:34)
[2019-06-23] MEDS: LEVOFLOXACIN INJ 500 MG in PREMIX 1 EACH IV SCH (12:25)
[2019-06-23] MEDS ORDERED: POTASSIUM CHLORIDE 20 MEQ/15 ML UDCUP PER TUBE ONE (18:11)
[2019-06-24] MEDS: INSULIN REGULAR 100 UNIT/ML SUBCUT SCH ×4 (00:20→18:53)
[2019-06-24 03:13] LABS: ABG Base Excess 3.8 MMOL/L (-2.5-2.5); ABG HCO3 27.8 MMOL/L (20-26); ABG Oxygen Saturation 96.4 % (95-100); ABG PCO2 41.4 MM HG (35-48); ABG PH 7.443 (7.35-7.45); ABG TCO2 25.5 MMOL/L (23-27)
[2019-06-24 03:14] LABS: Allen Test Positive; Pt O2 Delivery Device Ventilator
[2019-06-24] MEDS: ACYCLOVIR INJ 750 MG in SODIUM CHLORIDE 0.9% 250 ML IV SCH ×3 (03:26→18:54)
[2019-06-24 05:18] LABS: Alanine Aminotransferase 118 U/L (16-61); Alkaline Phosphatase 128 U/L (45-117); Aspartate Amino Transferase 58 U/L (0-37); Bilirubin,Total < 0.39 MG/DL (0.2-1.0); Blood Urea Nitrogen 32 MG/DL (7-18); Estimated Glom Filtration Rate 89 ML/MIN; Glucose 197 MG/DL (74-106); Osmolality,Calculated 290.4 MOS/KG (273-304); Total Protein 7.4 G/DL (6.4-8.3)
[2019-06-24 05:23] LABS: Basophils % 0.4 % (0.0-0.8); Eosinophils # 0.7 10*3/uL (0.0-0.87); Eosinophils % 6.7 % (0.00-10.9); Hematocrit 30.7 VOL% (42.0-52.0); Hemoglobin 10.1 GM/DL (14.0-18.0); Immature Granulocytes % 2.2 %; Immature Granulocytes Absolute 0.23 #; Lymphocytes # 1.2 10*3/uL (1.4-4.0); Lymphocytes % 11.5 % (21.2-54.2); Mean Corpuscular HGB Conc 32.9 GM/DL (32-36); Mean Corpuscular Volume 99.7 FL (87-102); Neutrophils % 71.2 % (38.7-73.9); Platelet Count 483 T/CUMM (130-400); Red Blood Count 3.08 MC/CUMM (3.8-5.5); White Blood Count 10.6 T/CUMM (4-12)
[2019-06-24] MEDS: POTASSIUM CHLORIDE RIDER 20 MEQ in PREMIX 1 EACH IV PRN ×2 (06:00→06:29)
[2019-06-24] MEDS: FUROSEMIDE 40 MG/4 ML VIAL IV SCH ×2 (08:30→16:22)
[2019-06-24] MEDS: AMIODARONE 200 MG TABLET PO SCH ×2 (08:39→20:45)
[2019-06-24] MEDS: DILTIAZEM 60 MG TABLET PO SCH ×4 (08:39→20:46)
[2019-06-24] MEDS: CLOPIDOGREL 75 MG TABLET PO SCH (08:39)
[2019-06-24] MEDS: POTASSIUM CHLORIDE 20 MEQ/15 ML UDCUP PO SCH ×3 (08:40→20:46)
[2019-06-24] MEDS: ASCORBIC ACID 500 MG TABLET PO SCH ×2 (08:40→20:45)
[2019-06-24] MEDS: ASPIRIN CHEW 81 MG TABLET PO SCH (08:40)
[2019-06-24] MEDS: ENOXAPARIN 100 MG/ML SYRINGE SUBCUT SCH ×2 (08:40→20:46)
[2019-06-24] MEDS: METOPROLOL TARTRATE 25 MG TABLET PO SCH ×2 (08:40→20:45)
[2019-06-24] MEDS: VANCOMYCIN INJ 1,000 MG in SODIUM CHLORIDE 0.9% 250 ML IV SCH (11:37)
[2019-06-24] MEDS: LEVOFLOXACIN INJ 500 MG in PREMIX 1 EACH IV SCH (11:39)
[2019-06-25] MEDS: INSULIN REGULAR 100 UNIT/ML SUBCUT SCH ×4 (00:54→17:42)
[2019-06-25] MEDS: ACYCLOVIR INJ 750 MG in SODIUM CHLORIDE 0.9% 250 ML IV SCH ×3 (03:17→18:47)
[2019-06-25 04:03] LABS: ABG Base Excess 1.4 MMOL/L (-2.5-2.5); ABG HCO3 25.4 MMOL/L (20-26); ABG Oxygen Saturation 97.7 % (95-100); ABG PCO2 37.9 MM HG (35-48); ABG PH 7.444 (7.35-7.45); ABG PO2 110.4 MM HG (80-95); ABG TCO2 26.6 MMOL/L (23-27); Allen Test Positive; Pt O2 Delivery Device Ventilator
[2019-06-25 05:16] LABS: Basophils # 0.1 10*3/uL (0.0-0.2); Basophils % 0.4 % (0.0-0.8); Eosinophils # 0.7 10*3/uL (0.0-0.87); Eosinophils % 5.9 % (0.00-10.9); Hematocrit 30.7 VOL% (42.0-52.0); Hemoglobin 10.2 GM/DL (14.0-18.0); Immature Granulocytes % 2.8 %; Immature Granulocytes Absolute 0.35 #; Lymphocytes # 1.3 10*3/uL (1.4-4.0); Lymphocytes % 10.1 % (21.2-54.2); Mean Corpuscular HGB Conc 33.2 GM/DL (32-36); Mean Platelet Volume 9.6 FL (9.6-12.0); Monocytes % 8.7 % (1.7-12.7); Neutrophils % 72.1 % (38.7-73.9); Platelet Count 493 T/CUMM (130-400); Red Cell Distribution Width 13.7 % (9.3-17.3); White Blood Count 12.5 T/CUMM (4-12)
[2019-06-25 05:29] LABS: Calcium 9.1 MG/DL (8.5-10.1); Osmolality,Calculated 291.4 MOS/KG (273-304)
[2019-06-25] MEDS: POTASSIUM CHLORIDE RIDER 20 MEQ in PREMIX 1 EACH IV PRN ×2 (05:55→06:39)
[2019-06-25] MEDS: FUROSEMIDE 40 MG/4 ML VIAL IV SCH ×2 (09:50→15:27)
[2019-06-25] MEDS: DILTIAZEM 60 MG TABLET PO SCH ×4 (10:17→20:51)
[2019-06-25] MEDS: ASPIRIN CHEW 81 MG TABLET PO SCH (10:17)
[2019-06-25] MEDS: METOPROLOL TARTRATE 25 MG TABLET PO SCH ×2 (10:18→20:51)
[2019-06-25] MEDS: cloNIDine 0.2 MG/24 HR PATCH TRANSDERM SCH (10:18)
[2019-06-25] MEDS: CLOPIDOGREL 75 MG TABLET PO SCH (10:18)
[2019-06-25] MEDS: ENOXAPARIN 100 MG/ML SYRINGE SUBCUT SCH (10:18)
[2019-06-25] MEDS: POTASSIUM CHLORIDE 20 MEQ/15 ML UDCUP PO SCH ×3 (10:18→20:51)
[2019-06-25] MEDS: AMIODARONE 200 MG TABLET PO SCH ×2 (10:18→20:51)
[2019-06-25] MEDS: ASCORBIC ACID 500 MG TABLET PO SCH ×2 (11:25→20:52)
[2019-06-25] MEDS: VANCOMYCIN INJ 1,000 MG in SODIUM CHLORIDE 0.9% 250 ML IV SCH (12:26)
[2019-06-26] MEDS: ENOXAPARIN 100 MG/ML SYRINGE SUBCUT SCH ×3 (00:32→21:27)
[2019-06-26] MEDS: INSULIN REGULAR 100 UNIT/ML SUBCUT SCH ×4 (00:33→17:41)
[2019-06-26] MEDS: ACYCLOVIR INJ 750 MG in SODIUM CHLORIDE 0.9% 250 ML IV SCH (04:00)
[2019-06-26 04:32] LABS: Basophils # 0.1 10*3/uL (0.0-0.2); Basophils % 0.4 % (0.0-0.8); Eosinophils # 0.5 10*3/uL (0.0-0.87); Eosinophils % 3.4 % (0.00-10.9); Hematocrit 32.4 VOL% (42.0-52.0); Hemoglobin 10.5 GM/DL (14.0-18.0); Immature Granulocytes % 3.4 %; Immature Granulocytes Absolute 0.51 #; Lymphocytes # 1.6 10*3/uL (1.4-4.0); Lymphocytes % 10.6 % (21.2-54.2); Mean Corpuscular HGB Conc 32.4 GM/DL (32-36); Mean Corpuscular Volume 100.6 FL (87-102); Monocytes % 11.1 % (1.7-12.7); Neutrophils % 71.1 % (38.7-73.9); Platelet Count 534 T/CUMM (130-400); Red Blood Count 3.22 MC/CUMM (3.8-5.5); Red Cell Distribution Width 13.3 % (9.3-17.3); White Blood Count 14.9 T/CUMM (4-12)
[2019-06-26 04:51] LABS: Calcium 9.2 MG/DL (8.5-10.1); Osmolality,Calculated 290.5 MOS/KG (273-304)
[2019-06-26 04:53] LABS: Band Neutrophils 1 % (0-10); Eosinophils 6 % (0-10); Hypochromasia 1+; Lymphocytes 10 % (20-55); Platelet Estimate Adequate; Segmented Neutrophils 75 % (50-85); Total Cells Counted 100
[2019-06-26] MEDS: ALBUTEROL/IPRATROPIUM 3 ML NEB RESP TX SCH ×3 (08:00→20:15)
[2019-06-26] MEDS: FUROSEMIDE 40 MG/4 ML VIAL IV SCH (09:46)
[2019-06-26] MEDS: POTASSIUM CHLORIDE 20 MEQ/15 ML UDCUP PO SCH ×3 (09:47→21:18)
[2019-06-26] MEDS: DILTIAZEM 60 MG TABLET PO SCH ×4 (09:47→21:17)
[2019-06-26] MEDS: METOPROLOL TARTRATE 25 MG TABLET PO SCH ×2 (09:47→21:18)
[2019-06-26] MEDS: ASPIRIN CHEW 81 MG TABLET PO SCH (09:47)
[2019-06-26] MEDS: CLOPIDOGREL 75 MG TABLET PO SCH (09:47)
[2019-06-26] MEDS: AMIODARONE 200 MG TABLET PO SCH ×2 (09:47→21:18)
[2019-06-26] MEDS: ASCORBIC ACID 500 MG TABLET PO SCH ×2 (09:48→21:18)
[2019-06-26] MEDS ORDERED: fentaNYL 100 MCG/HR PATCH TRANSDERM SCH (11:00)
[2019-06-26] MEDS: cefTRIAXone 1,000 MG in SYRINGE 1 EACH IV SCH (12:00)
[2019-06-27] MEDS: INSULIN REGULAR 100 UNIT/ML SUBCUT SCH ×4 (00:04→18:18)
[2019-06-27 03:30] LABS: Basophils # 0.1 10*3/uL (0.0-0.2); Basophils % 0.7 % (0.0-0.8); Eosinophils # 0.2 10*3/uL (0.0-0.87); Eosinophils % 1.4 % (0.00-10.9); Hematocrit 40.5 VOL% (42.0-52.0); Hemoglobin 12.9 GM/DL (14.0-18.0); Immature Granulocytes % 2.3 %; Immature Granulocytes Absolute 0.28 #; Lymphocytes # 1.1 10*3/uL (1.4-4.0); Lymphocytes % 9.1 % (21.2-54.2); Mean Corpuscular HGB Conc 31.9 GM/DL (32-36); Mean Corpuscular Volume 101.8 FL (87-102); Mean Platelet Volume 9.6 FL (9.6-12.0); Monocytes % 11.6 % (1.7-12.7); Neutrophils % 74.9 % (38.7-73.9); Platelet Count 437 T/CUMM (130-400); Red Blood Count 3.98 MC/CUMM (3.8-5.5); Red Cell Distribution Width 13.5 % (9.3-17.3); White Blood Count 11.9 T/CUMM (4-12)
[2019-06-27 04:04] LABS: Calcium 9.6 MG/DL (8.5-10.1)
[2019-06-27] MEDS: ALBUTEROL/IPRATROPIUM 3 ML NEB RESP TX SCH ×3 (08:28→19:16)
[2019-06-27] MEDS: DILTIAZEM 60 MG TABLET PO SCH ×4 (09:10→21:14)
[2019-06-27] MEDS: AMIODARONE 200 MG TABLET PO SCH ×2 (09:10→21:14)
[2019-06-27] MEDS: ASCORBIC ACID 500 MG TABLET PO SCH ×2 (09:10→21:14)
[2019-06-27] MEDS: METOPROLOL TARTRATE 25 MG TABLET PO SCH ×2 (09:10→21:14)
[2019-06-27] MEDS: ENOXAPARIN 100 MG/ML SYRINGE SUBCUT SCH ×2 (09:10→21:15)
[2019-06-27] MEDS: CLOPIDOGREL 75 MG TABLET PO SCH (09:10)
[2019-06-27] MEDS: POTASSIUM CHLORIDE 20 MEQ/15 ML UDCUP PO SCH ×3 (09:10→21:15)
[2019-06-27] MEDS: ASPIRIN CHEW 81 MG TABLET PO SCH (09:10)
[2019-06-27] MEDS: cefTRIAXone 1,000 MG in SYRINGE 1 EACH IV SCH (09:47)
[2019-06-28] MEDS: INSULIN REGULAR 100 UNIT/ML SUBCUT SCH ×5 (00:59→23:48)
[2019-06-28 04:46] LABS: Basophils # 0.1 10*3/uL (0.0-0.2); Eosinophils # 0.3 10*3/uL (0.0-0.87); Hematocrit 31.6 VOL% (42.0-52.0); Hemoglobin 10.2 GM/DL (14.0-18.0); Immature Granulocytes % 2.3 %; Immature Granulocytes Absolute 0.32 #; Lymphocytes # 1.6 10*3/uL (1.4-4.0); Lymphocytes % 11.6 % (21.2-54.2); Mean Corpuscular HGB Conc 32.3 GM/DL (32-36); Mean Platelet Volume 9.7 FL (9.6-12.0); Monocytes % 11.7 % (1.7-12.7); Neutrophils % 71.4 % (38.7-73.9); Platelet Count 635 T/CUMM (130-400); Red Blood Count 3.13 MC/CUMM (3.8-5.5); Red Cell Distribution Width 14.1 % (9.3-17.3); White Blood Count 13.7 T/CUMM (4-12)
[2019-06-28 05:10] LABS: Albumin 2.3 G/DL (3.4-5.0); Bilirubin,Total 0.4 MG/DL (0.2-1.0); Calcium 9.6 MG/DL (8.5-10.1); Osmolality,Calculated 309.7 MOS/KG (273-304); Total Protein 8.3 G/DL (6.4-8.3)
[2019-06-28] MEDS: ALBUTEROL/IPRATROPIUM 3 ML NEB RESP TX SCH ×3 (06:53→19:27)
[2019-06-28] MEDS: cefTRIAXone 1,000 MG in SYRINGE 1 EACH IV SCH (08:49)
[2019-06-28] MEDS: ENOXAPARIN 100 MG/ML SYRINGE SUBCUT SCH ×2 (08:53→20:39)
[2019-06-28] MEDS: POTASSIUM CHLORIDE 20 MEQ/15 ML UDCUP PO SCH ×3 (08:54→20:38)
[2019-06-28] MEDS: DILTIAZEM 60 MG TABLET PO SCH ×4 (08:54→20:36)
[2019-06-28] MEDS: ASPIRIN CHEW 81 MG TABLET PO SCH (08:54)
[2019-06-28] MEDS: ASCORBIC ACID 500 MG TABLET PO SCH ×2 (08:54→20:39)
[2019-06-28] MEDS: CLOPIDOGREL 75 MG TABLET PO SCH (08:54)
[2019-06-28] MEDS: METOPROLOL TARTRATE 25 MG TABLET PO SCH (08:55)
[2019-06-28] MEDS: AMIODARONE 200 MG TABLET PO SCH ×2 (08:55→20:38)
[2019-06-28] MEDS ORDERED: METOPROLOL TARTRATE 50 MG TABLET PO SCH (10:17)
[2019-06-28 12:06] LABS: Folate 6.9 NG/ML (5.4-24.0)
[2019-06-28] MEDS: MENTHOL/ZINC OXIDE OINT 71 GM JAR TOP SCH ×2 (13:49→20:35)
[2019-06-28] MEDS: INSULIN GLARGINE 100 UNIT/ML SUBCUT SCH (20:38)
[2019-06-28] MEDS ORDERED: INSULIN GLARGINE 100 UNIT/ML SUBCUT SCH (21:00)
[2019-06-29 04:44] LABS: Basophils # 0.2 10*3/uL (0.0-0.2); Basophils % 1.1 % (0.0-0.8); Eosinophils # 0.5 10*3/uL (0.0-0.87); Eosinophils % 3.2 % (0.00-10.9); Hematocrit 33.2 VOL% (42.0-52.0); Hemoglobin 10.1 GM/DL (14.0-18.0); Immature Granulocytes % 2.1 %; Immature Granulocytes Absolute 0.29 #; Lymphocytes % 14.1 % (21.2-54.2); Mean Corpuscular HGB Conc 30.4 GM/DL (32-36); Mean Corpuscular Volume 107.1 FL (87-102); Mean Platelet Volume 9.9 FL (9.6-12.0); Monocytes % 11.4 % (1.7-12.7); Neutrophils % 68.1 % (38.7-73.9); Platelet Count 757 T/CUMM (130-400); Red Cell Distribution Width 14.7 % (9.3-17.3); White Blood Count 13.9 T/CUMM (4-12)
[2019-06-29 05:08] LABS: Albumin 2.4 G/DL (3.4-5.0); Calcium 9.5 MG/DL (8.5-10.1); Total Protein 8.1 G/DL (6.4-8.3)
[2019-06-29] MEDS: INSULIN REGULAR 100 UNIT/ML SUBCUT SCH ×3 (06:01→18:04)
[2019-06-29] MEDS: ALBUTEROL/IPRATROPIUM 3 ML NEB RESP TX SCH ×3 (06:36→19:12)
[2019-06-29] MEDS: ACETAMINOPHEN 325 MG/10.15 ML UDCUP PO PRN ×2 (07:05→18:10)
[2019-06-29] MEDS: cefTRIAXone 1,000 MG in SYRINGE 1 EACH IV SCH (08:02)
[2019-06-29] MEDS: POTASSIUM CHLORIDE 20 MEQ/15 ML UDCUP PO SCH ×3 (08:02→21:17)
[2019-06-29] MEDS: ASPIRIN CHEW 81 MG TABLET PO SCH (08:03)
[2019-06-29] MEDS: DILTIAZEM 60 MG TABLET PO SCH ×4 (08:03→21:35)
[2019-06-29] MEDS: AMIODARONE 200 MG TABLET PO SCH ×2 (08:03→21:11)
[2019-06-29] MEDS: ASCORBIC ACID 500 MG TABLET PO SCH ×2 (08:03→21:11)
[2019-06-29] MEDS: METOPROLOL TARTRATE 100 MG TABLET PO SCH ×2 (08:04→21:34)
[2019-06-29] MEDS: MENTHOL/ZINC OXIDE OINT 71 GM JAR TOP SCH ×2 (08:50→21:26)
[2019-06-29] MEDS: CLOPIDOGREL 75 MG TABLET PO SCH (08:50)
[2019-06-29] MEDS: ENOXAPARIN 100 MG/ML SYRINGE SUBCUT SCH ×2 (08:54→21:35)
[2019-06-29 10:45] LABS: ABG Base Excess 0.9 MMOL/L (-2.5-2.5); ABG HCO3 24.6 MMOL/L (20-26); ABG Oxygen Saturation 63.3 % (95-100); ABG PCO2 34.1 MM HG (35-48); ABG PH 7.461 (7.35-7.45); ABG TCO2 21.9 MMOL/L (23-27)
[2019-06-29 10:46] LABS: ABG PO2 34.6 MM HG (80-95)
[2019-06-29 11:52] LABS: ABG Base Excess 0.7 MMOL/L (-2.5-2.5); ABG Oxygen Saturation 97.3 % (95-100); ABG PH 7.409 (7.35-7.45); ABG PO2 95.6 MM HG (80-95); ABG TCO2 22.9 MMOL/L (23-27)
[2019-06-29] MEDS: methylPREDNISolone SOD SUC 40 MG/1 ML VIAL IV SCH (16:06)
[2019-06-29] MEDS: INSULIN GLARGINE 100 UNIT/ML SUBCUT SCH (21:08)
[2019-06-30] MEDS: INSULIN REGULAR 100 UNIT/ML SUBCUT SCH ×2 (00:12→05:37)
[2019-06-30] MEDS: methylPREDNISolone SOD SUC 40 MG/1 ML VIAL IV SCH ×3 (00:18→19:56)
[2019-06-30] MEDS: ACETAMINOPHEN 325 MG/10.15 ML UDCUP PO PRN ×2 (02:00→16:41)
[2019-06-30 04:36] LABS: ABG Base Excess -1.3 MMOL/L (-2.5-2.5); ABG HCO3 23.3 MMOL/L (20-26); ABG Oxygen Saturation 96.9 % (95-100); ABG PH 7.394 (7.35-7.45); ABG PO2 93.3 MM HG (80-95); ABG TCO2 20.5 MMOL/L (23-27); Allen Test Positive; Pt O2 Delivery Device BIPAP
[2019-06-30 06:20] LABS: Basophils # 0.1 10*3/uL (0.0-0.2); Basophils % 0.6 % (0.0-0.8); Hematocrit 33.3 VOL% (42.0-52.0); Hemoglobin 10.1 GM/DL (14.0-18.0); Immature Granulocytes % 1.1 %; Immature Granulocytes Absolute 0.25 #; Lymphocytes # 1.3 10*3/uL (1.4-4.0); Lymphocytes % 5.6 % (21.2-54.2); Mean Corpuscular HGB Conc 30.3 GM/DL (32-36); Mean Corpuscular Volume 107.1 FL (87-102); Mean Platelet Volume 10.4 FL (9.6-12.0); Monocytes % 4.6 % (1.7-12.7); Neutrophils % 88.1 % (38.7-73.9); Platelet Count 752 T/CUMM (130-400); Red Blood Count 3.11 MC/CUMM (3.8-5.5); Red Cell Distribution Width 15.1 % (9.3-17.3); White Blood Count 22.9 T/CUMM (4-12)
[2019-06-30] MEDS: ALBUTEROL/IPRATROPIUM 3 ML NEB RESP TX SCH ×3 (07:07→19:45)
[2019-06-30 07:15] LABS: Albumin 2.6 G/DL (3.4-5.0); Bilirubin,Total 1.1 MG/DL (0.2-1.0); Calcium 9.4 MG/DL (8.5-10.1); Osmolality,Calculated 328.9 MOS/KG (273-304); Total Protein 8.4 G/DL (6.4-8.3)
[2019-06-30 08:45] LABS: Lymphocytes 6 % (20-55); Segmented Neutrophils 89 % (50-85); Total Cells Counted 100
[2019-06-30] MEDS ORDERED: FUROSEMIDE 40 MG/4 ML VIAL IV ONE (08:46)
[2019-06-30 08:49] LABS: Macrocytosis 1+; Platelet Estimate Increased; Polychromasia Slight
[2019-06-30] MEDS: CLOPIDOGREL 75 MG TABLET PO SCH (09:22)
[2019-06-30] MEDS: POTASSIUM CHLORIDE 20 MEQ/15 ML UDCUP PO SCH (09:22)
[2019-06-30] MEDS: DILTIAZEM 90 MG TABLET PO SCH ×4 (09:22→20:58)
[2019-06-30] MEDS: AMIODARONE 200 MG TABLET PO SCH ×2 (09:23→20:59)
[2019-06-30] MEDS: ASCORBIC ACID 500 MG TABLET PO SCH ×2 (09:23→20:59)
[2019-06-30] MEDS: ASPIRIN CHEW 81 MG TABLET PO SCH (09:23)
[2019-06-30] MEDS: METOPROLOL TARTRATE 100 MG TABLET PO SCH ×2 (09:23→20:59)
[2019-06-30] MEDS: ENOXAPARIN 100 MG/ML SYRINGE SUBCUT SCH ×2 (09:24→21:42)
[2019-06-30] MEDS: MENTHOL/ZINC OXIDE OINT 71 GM JAR TOP SCH ×2 (09:28→21:06)
[2019-06-30] MEDS: CEFEPIME 1,000 MG in SODIUM CHLORIDE 0.9% 100 ML IV SCH ×3 (09:41→20:59)
[2019-06-30] MEDS: DORNASE ALFA 2.5 MG/2.5 ML VIAL RESP TX SCH ×2 (09:45→19:46)
[2019-06-30] MEDS: INSULIN REGULAR DRIP 100 ML IV PRN ×2 (09:50→20:14)
[2019-06-30] MEDS: BUDESONIDE 0.25 MG/2 ML NEB RESP TX SCH ×2 (14:22→19:45)
[2019-07-01] MEDS: ACETAMINOPHEN 325 MG/10.15 ML UDCUP PO PRN ×2 (01:43→08:47)
[2019-07-01] MEDS: CEFEPIME 1,000 MG in SODIUM CHLORIDE 0.9% 100 ML IV SCH ×4 (03:33→21:34)
[2019-07-01 04:11] LABS: ABG Base Excess -3.2 MMOL/L (-2.5-2.5); ABG HCO3 20.9 MMOL/L (20-26); ABG Oxygen Saturation 98.2 % (95-100); ABG PCO2 33.7 MM HG (35-48); ABG PO2 134.2 MM HG (80-95); ABG TCO2 21.9 MMOL/L (23-27); Allen Test Positive; Pt O2 Delivery Device BIPAP
[2019-07-01 05:52] LABS: Basophils # 0.1 10*3/uL (0.0-0.2); Basophils % 0.2 % (0.0-0.8); Hematocrit 30.6 VOL% (42.0-52.0); Hemoglobin 9.1 GM/DL (14.0-18.0); Immature Granulocytes Absolute 0.27 #; Lymphocytes # 1.9 10*3/uL (1.4-4.0); Lymphocytes % 7.1 % (21.2-54.2); Mean Corpuscular HGB Conc 29.7 GM/DL (32-36); Mean Corpuscular Volume 110.5 FL (87-102); Monocytes % 7.9 % (1.7-12.7); Neutrophils % 83.8 % (38.7-73.9); Platelet Count 702 T/CUMM (130-400); Red Blood Count 2.77 MC/CUMM (3.8-5.5); Red Cell Distribution Width 15.4 % (9.3-17.3); White Blood Count 26.7 T/CUMM (4-12)
[2019-07-01 06:34] LABS: Albumin 2.1 G/DL (3.4-5.0); Bilirubin,Total 0.6 MG/DL (0.2-1.0); Calcium 8.9 MG/DL (8.5-10.1); Osmolality,Calculated 341.2 MOS/KG (273-304); Total Protein 7.5 G/DL (6.4-8.3)
[2019-07-01] MEDS: BUDESONIDE 0.25 MG/2 ML NEB RESP TX SCH ×2 (07:14→19:33)
[2019-07-01] MEDS: ALBUTEROL/IPRATROPIUM 3 ML NEB RESP TX SCH ×3 (07:14→19:33)
[2019-07-01] MEDS: DORNASE ALFA 2.5 MG/2.5 ML VIAL RESP TX SCH ×2 (07:26→19:33)
[2019-07-01] MEDS: methylPREDNISolone SOD SUC 40 MG/1 ML VIAL IV SCH ×2 (07:38→20:29)
[2019-07-01 07:59] LABS: Band Neutrophils 6 % (0-10); Lymphocytes 4 % (20-55); Metamyelocytes 3 %; Segmented Neutrophils 76 % (50-85); Total Cells Counted 100
[2019-07-01 08:00] LABS: Anisocytosis 2+; Hypochromasia 1+
[2019-07-01 08:01] LABS: Ovalocytes Slight; Schistocytes Slight
[2019-07-01 08:02] LABS: Platelet Estimate Increased
[2019-07-01] MEDS: AMIODARONE 200 MG TABLET PO SCH ×2 (08:41→21:21)
[2019-07-01] MEDS: ASCORBIC ACID 500 MG TABLET PO SCH ×2 (08:41→21:20)
[2019-07-01] MEDS: CLOPIDOGREL 75 MG TABLET PO SCH (08:41)
[2019-07-01] MEDS: METOPROLOL TARTRATE 100 MG TABLET PO SCH ×2 (08:42→21:20)
[2019-07-01] MEDS: DILTIAZEM 90 MG TABLET PO SCH ×4 (08:42→21:25)
[2019-07-01] MEDS: ASPIRIN CHEW 81 MG TABLET PO SCH (08:42)
[2019-07-01] MEDS: MENTHOL/ZINC OXIDE OINT 71 GM JAR TOP SCH ×2 (09:36→22:11)
[2019-07-01] MEDS: INSULIN REGULAR DRIP 100 ML IV PRN (09:39)
[2019-07-01] MEDS: ENOXAPARIN 100 MG/ML SYRINGE SUBCUT SCH ×2 (09:44→21:44)
[2019-07-02] MEDS: INSULIN REGULAR DRIP 100 ML IV PRN (01:35)
[2019-07-02] MEDS: CEFEPIME 1,000 MG in SODIUM CHLORIDE 0.9% 100 ML IV SCH ×4 (03:02→22:52)
[2019-07-02 04:59] LABS: Allen Test Positive; Pt O2 Delivery Device BIPAP
[2019-07-02 05:01] LABS: ABG Base Excess -2.2 MMOL/L (-2.5-2.5); ABG HCO3 22.5 MMOL/L (20-26); ABG Oxygen Saturation 95.5 % (95-100); ABG PCO2 32.2 MM HG (35-48); ABG PH 7.431 (7.35-7.45); ABG PO2 76.3 MM HG (80-95); ABG TCO2 19.8 MMOL/L (23-27)
[2019-07-02 05:51] LABS: Basophils % 0.2 % (0.0-0.8); Eosinophils % 0.1 % (0.00-10.9); Hematocrit 27.7 VOL% (42.0-52.0); Hemoglobin 8.2 GM/DL (14.0-18.0); Immature Granulocytes % 1.1 %; Immature Granulocytes Absolute 0.25 #; Lymphocytes # 1.2 10*3/uL (1.4-4.0); Lymphocytes % 5.3 % (21.2-54.2); Mean Corpuscular HGB Conc 29.6 GM/DL (32-36); Mean Corpuscular Volume 110.4 FL (87-102); Mean Platelet Volume 10.3 FL (9.6-12.0); Monocytes % 4.3 % (1.7-12.7); NRBC # 0.04 10*3/uL; Platelet Count 581 T/CUMM (130-400); Red Blood Count 2.51 MC/CUMM (3.8-5.5); Red Cell Distribution Width 15.3 % (9.3-17.3); White Blood Count 22.1 T/CUMM (4-12)
[2019-07-02 06:05] LABS: Alanine Aminotransferase 203 U/L (16-61); Albumin 1.9 G/DL (3.4-5.0); Alkaline Phosphatase 108 U/L (45-117); Aspartate Amino Transferase 68 U/L (0-37); Bilirubin,Total < 0.39 MG/DL (0.2-1.0); Blood Urea Nitrogen 100 MG/DL (7-18); Calcium 9.2 MG/DL (8.5-10.1); Estimated Glom Filtration Rate 45 ML/MIN; Glucose 152 MG/DL (74-106); Osmolality,Calculated 342.2 MOS/KG (273-304); Total Protein 7.2 G/DL (6.4-8.3)
[2019-07-02 06:19] LABS: Hypochromasia Slight; Lymphocytes 2 % (20-55); Nucleated Red Blood Cells 1 (0-5); Platelet Estimate Adequate; Segmented Neutrophils 95 % (50-85); Total Cells Counted 100
[2019-07-02] MEDS: BUDESONIDE 0.25 MG/2 ML NEB RESP TX SCH ×2 (07:35→19:35)
[2019-07-02] MEDS: ALBUTEROL/IPRATROPIUM 3 ML NEB RESP TX SCH ×3 (07:35→19:35)
[2019-07-02] MEDS: DORNASE ALFA 2.5 MG/2.5 ML VIAL RESP TX SCH ×2 (07:40→19:45)
[2019-07-02] MEDS: AMIODARONE 200 MG TABLET PO SCH ×2 (09:04→22:49)
[2019-07-02] MEDS: ASPIRIN CHEW 81 MG TABLET PO SCH (09:04)
[2019-07-02] MEDS: ASCORBIC ACID 500 MG TABLET PO SCH ×2 (09:04→22:47)
[2019-07-02] MEDS: CLOPIDOGREL 75 MG TABLET PO SCH (09:04)
[2019-07-02] MEDS: DILTIAZEM 90 MG TABLET PO SCH ×4 (09:05→22:46)
[2019-07-02] MEDS: ENOXAPARIN 100 MG/ML SYRINGE SUBCUT SCH ×2 (09:06→22:50)
[2019-07-02] MEDS: MENTHOL/ZINC OXIDE OINT 71 GM JAR TOP SCH ×2 (09:06→23:10)
[2019-07-02] MEDS: METOPROLOL TARTRATE 100 MG TABLET PO SCH ×2 (09:06→22:49)
[2019-07-02] MEDS: cloNIDine 0.2 MG/24 HR PATCH TRANSDERM SCH (09:07)
[2019-07-02] MEDS: methylPREDNISolone SOD SUC 40 MG/1 ML VIAL IV SCH ×2 (09:07→23:00)
[2019-07-02] MEDS: INSULIN GLARGINE 100 UNIT/ML SUBCUT SCH ×2 (09:10→21:57)
[2019-07-02] MEDS: INSULIN LISPRO 100 UNIT/ML SUBCUT SCH ×3 (11:50→21:49)
[2019-07-03 06:07] LABS: Basophils % 0.1 % (0.0-0.8); Eosinophils % 0.1 % (0.00-10.9); Hematocrit 27.1 VOL% (42.0-52.0); Hemoglobin 7.9 GM/DL (14.0-18.0); Immature Granulocytes % 1.4 %; Immature Granulocytes Absolute 0.24 #; Lymphocytes # 1.1 10*3/uL (1.4-4.0); Lymphocytes % 6.3 % (21.2-54.2); Mean Corpuscular HGB Conc 29.2 GM/DL (32-36); Mean Platelet Volume 10.6 FL (9.6-12.0); Monocytes % 3.2 % (1.7-12.7); NRBC # 0.02 10*3/uL; Neutrophils % 88.9 % (38.7-73.9); Platelet Count 569 T/CUMM (130-400); Red Blood Count 2.42 MC/CUMM (3.8-5.5); Red Cell Distribution Width 15.3 % (9.3-17.3); White Blood Count 16.8 T/CUMM (4-12)
[2019-07-03 06:24] LABS: Hypochromasia 1+; Macrocytosis 1+; Platelet Estimate Increased; Polychromasia Slight
[2019-07-03 06:28] LABS: Albumin 1.9 G/DL (3.4-5.0); Bilirubin,Total 0.4 MG/DL (0.2-1.0); Calcium 8.8 MG/DL (8.5-10.1); Osmolality,Calculated 356.6 MOS/KG (273-304); Total Protein 6.9 G/DL (6.4-8.3)
[2019-07-03] MEDS: INSULIN LISPRO 100 UNIT/ML SUBCUT SCH ×4 (06:41→21:10)
[2019-07-03] MEDS: CEFEPIME 1,000 MG in SODIUM CHLORIDE 0.9% 100 ML IV SCH ×4 (07:10→20:15)
[2019-07-03] MEDS: ALBUTEROL/IPRATROPIUM 3 ML NEB RESP TX SCH ×3 (07:30→19:15)
[2019-07-03] MEDS: BUDESONIDE 0.25 MG/2 ML NEB RESP TX SCH ×2 (07:30→19:15)
[2019-07-03] MEDS: DORNASE ALFA 2.5 MG/2.5 ML VIAL RESP TX SCH ×2 (07:40→19:15)
[2019-07-03] MEDS: ENOXAPARIN 40 MG/0.4 ML SYRINGE SUBCUT SCH (09:20)
[2019-07-03] MEDS: methylPREDNISolone SOD SUC 40 MG/1 ML VIAL IV SCH ×2 (09:20→20:21)
[2019-07-03] MEDS: ASCORBIC ACID 500 MG TABLET PO SCH ×2 (09:21→20:22)
[2019-07-03] MEDS: AMIODARONE 200 MG TABLET PO SCH ×2 (09:21→20:22)
[2019-07-03] MEDS: METOPROLOL TARTRATE 100 MG TABLET PO SCH ×2 (09:21→20:22)
[2019-07-03] MEDS: MENTHOL/ZINC OXIDE OINT 71 GM JAR TOP SCH ×2 (09:22→20:22)
[2019-07-03] MEDS: ASPIRIN CHEW 81 MG TABLET PO SCH (09:22)
[2019-07-03] MEDS: DILTIAZEM 90 MG TABLET PO SCH ×4 (09:27→20:22)
[2019-07-03] MEDS: INSULIN GLARGINE 100 UNIT/ML SUBCUT SCH ×2 (09:28→21:11)
[2019-07-04] MEDS: CEFEPIME 1,000 MG in SODIUM CHLORIDE 0.9% 100 ML IV SCH ×4 (02:58→20:58)
[2019-07-04 06:12] LABS: Basophils % 0.1 % (0.0-0.8); Hematocrit 26.2 VOL% (42.0-52.0); Hemoglobin 7.7 GM/DL (14.0-18.0); Immature Granulocytes % 1.3 %; Immature Granulocytes Absolute 0.22 #; Lymphocytes # 1.1 10*3/uL (1.4-4.0); Lymphocytes % 6.8 % (21.2-54.2); Mean Corpuscular HGB Conc 29.4 GM/DL (32-36); Mean Corpuscular Volume 111.5 FL (87-102); Mean Platelet Volume 11.1 FL (9.6-12.0); Monocytes % 5.2 % (1.7-12.7); Neutrophils % 86.6 % (38.7-73.9); Platelet Count 504 T/CUMM (130-400); Red Blood Count 2.35 MC/CUMM (3.8-5.5); Red Cell Distribution Width 14.8 % (9.3-17.3); White Blood Count 16.6 T/CUMM (4-12)
[2019-07-04 06:35] LABS: Calcium 8.8 MG/DL (8.5-10.1); Osmolality,Calculated 352.2 MOS/KG (273-304)
[2019-07-04 06:37] LABS: Hypochromasia 2+; Lymphocytes 6 % (20-55); Microcytosis Slight; Platelet Estimate Adequate; Segmented Neutrophils 93 % (50-85); Total Cells Counted 100
[2019-07-04 06:40] LABS: Alanine Aminotransferase 295 U/L (16-61); Alkaline Phosphatase 133 U/L (45-117); Aspartate Amino Transferase 59 U/L (0-37); Bilirubin,Total < 0.39 MG/DL (0.2-1.0); Blood Urea Nitrogen 88 MG/DL (7-18); Calcium 8.7 MG/DL (8.5-10.1); Estimated Glom Filtration Rate 59 ML/MIN; Glucose 392 MG/DL (74-106); Osmolality,Calculated 347.4 MOS/KG (273-304); Total Protein 6.6 G/DL (6.4-8.3)
[2019-07-04] MEDS: ALBUTEROL/IPRATROPIUM 3 ML NEB RESP TX SCH ×3 (07:27→19:03)
[2019-07-04] MEDS: BUDESONIDE 0.25 MG/2 ML NEB RESP TX SCH ×2 (07:27→19:03)
[2019-07-04] MEDS: DORNASE ALFA 2.5 MG/2.5 ML VIAL RESP TX SCH (07:27)
[2019-07-04] MEDS: methylPREDNISolone SOD SUC 40 MG/1 ML VIAL IV SCH ×3 (08:46→20:39)
[2019-07-04] MEDS: INSULIN LISPRO 100 UNIT/ML SUBCUT SCH ×4 (08:47→21:14)
[2019-07-04] MEDS: AMIODARONE 200 MG TABLET PO SCH ×2 (08:48→20:42)
[2019-07-04] MEDS: MENTHOL/ZINC OXIDE OINT 71 GM JAR TOP SCH ×2 (08:48→19:45)
[2019-07-04] MEDS: ASPIRIN CHEW 81 MG TABLET PO SCH (08:48)
[2019-07-04] MEDS: METOPROLOL TARTRATE 100 MG TABLET PO SCH ×2 (08:49→20:51)
[2019-07-04] MEDS: ASCORBIC ACID 500 MG TABLET PO SCH ×2 (08:49→20:42)
[2019-07-04] MEDS: ENOXAPARIN 40 MG/0.4 ML SYRINGE SUBCUT SCH (08:50)
[2019-07-04] MEDS: INSULIN GLARGINE 100 UNIT/ML SUBCUT SCH ×3 (08:50→21:14)
[2019-07-04] MEDS: DILTIAZEM 60 MG TABLET PO SCH ×3 (08:52→20:41)
[2019-07-04] MEDS ORDERED: SODIUM CHLORIDE 0.9% 1,000 ML IV PRN (09:26)
[2019-07-04] MEDS ORDERED: INSULIN REGULAR 100 UNIT/ML IV ONE (09:28)
[2019-07-04] MEDS: PANTOPRAZOLE 40 MG VIAL IV SCH (20:42)
[2019-07-05] MEDS: CEFEPIME 1,000 MG in SODIUM CHLORIDE 0.9% 100 ML IV SCH ×4 (02:31→20:39)
[2019-07-05 06:08] LABS: Basophils % 0.1 % (0.0-0.8); Eosinophils # 0.2 10*3/uL (0.0-0.87); Eosinophils % 0.9 % (0.00-10.9); Hematocrit 31.7 VOL% (42.0-52.0); Hemoglobin 9.9 GM/DL (14.0-18.0); Immature Granulocytes % 1.4 %; Immature Granulocytes Absolute 0.24 #; Lymphocytes # 1.7 10*3/uL (1.4-4.0); Lymphocytes % 9.8 % (21.2-54.2); Mean Corpuscular HGB Conc 31.2 GM/DL (32-36); Mean Corpuscular Volume 100.3 FL (87-102); Mean Platelet Volume 10.8 FL (9.6-12.0); Monocytes % 5.3 % (1.7-12.7); Neutrophils % 82.5 % (38.7-73.9); Platelet Count 415 T/CUMM (130-400); Red Blood Count 3.16 MC/CUMM (3.8-5.5); Red Cell Distribution Width 17.7 % (9.3-17.3); White Blood Count 17.5 T/CUMM (4-12)
[2019-07-05 06:25] LABS: Bilirubin,Total 0.8 MG/DL (0.2-1.0); Calcium 8.9 MG/DL (8.5-10.1); Osmolality,Calculated 331.6 MOS/KG (273-304); Total Protein 6.5 G/DL (6.4-8.3)
[2019-07-05] MEDS: ALBUTEROL/IPRATROPIUM 3 ML NEB RESP TX SCH ×3 (07:21→19:09)
[2019-07-05] MEDS: BUDESONIDE 0.25 MG/2 ML NEB RESP TX SCH ×2 (07:21→19:09)
[2019-07-05] MEDS: INSULIN LISPRO 100 UNIT/ML SUBCUT SCH ×4 (07:24→20:54)
[2019-07-05] MEDS: AMIODARONE 200 MG TABLET PO SCH (08:31)
[2019-07-05] MEDS: ASCORBIC ACID 500 MG TABLET PO SCH ×2 (08:31→20:45)
[2019-07-05] MEDS: DILTIAZEM 60 MG TABLET PO SCH ×3 (08:31→20:44)
[2019-07-05] MEDS: ENOXAPARIN 40 MG/0.4 ML SYRINGE SUBCUT SCH (08:32)
[2019-07-05] MEDS: ASPIRIN CHEW 81 MG TABLET PO SCH (08:32)
[2019-07-05] MEDS: METOPROLOL TARTRATE 100 MG TABLET PO SCH ×2 (08:32→20:45)
[2019-07-05] MEDS: methylPREDNISolone SOD SUC 40 MG/1 ML VIAL IV SCH ×2 (08:33→20:35)
[2019-07-05] MEDS: PANTOPRAZOLE 40 MG VIAL IV SCH ×2 (08:42→20:37)
[2019-07-05] MEDS: MENTHOL/ZINC OXIDE OINT 71 GM JAR TOP SCH ×2 (09:01→20:08)
[2019-07-05] MEDS: INSULIN GLARGINE 100 UNIT/ML SUBCUT SCH ×2 (09:01→20:58)
[2019-07-06] MEDS: CEFEPIME 1,000 MG in SODIUM CHLORIDE 0.9% 100 ML IV SCH (02:31)
[2019-07-06 03:47] LABS: Basophils % 0.1 % (0.0-0.8); Eosinophils # 0.2 10*3/uL (0.0-0.87); Hematocrit 32.3 VOL% (42.0-52.0); Hemoglobin 9.8 GM/DL (14.0-18.0); Immature Granulocytes % 1.8 %; Lymphocytes # 1.4 10*3/uL (1.4-4.0); Lymphocytes % 8.7 % (21.2-54.2); Mean Corpuscular HGB Conc 30.3 GM/DL (32-36); Mean Corpuscular Volume 102.2 FL (87-102); Mean Platelet Volume 10.7 FL (9.6-12.0); Monocytes % 4.4 % (1.7-12.7); Platelet Count 393 T/CUMM (130-400); Red Blood Count 3.16 MC/CUMM (3.8-5.5); Red Cell Distribution Width 16.8 % (9.3-17.3); White Blood Count 16.6 T/CUMM (4-12)
[2019-07-06 04:02] LABS: Calcium 8.9 MG/DL (8.5-10.1); Osmolality,Calculated 319.7 MOS/KG (273-304)
[2019-07-06] MEDS: ALBUTEROL/IPRATROPIUM 3 ML NEB RESP TX SCH ×3 (07:24→20:15)
[2019-07-06] MEDS: INSULIN LISPRO 100 UNIT/ML SUBCUT SCH ×4 (07:29→21:40)
[2019-07-06] MEDS: BUDESONIDE 0.25 MG/2 ML NEB RESP TX SCH ×2 (07:32→20:15)
[2019-07-06] MEDS: ENOXAPARIN 40 MG/0.4 ML SYRINGE SUBCUT SCH (09:11)
[2019-07-06] MEDS: PANTOPRAZOLE 40 MG VIAL IV SCH ×2 (09:11→21:44)
[2019-07-06] MEDS: ASCORBIC ACID 500 MG TABLET PO SCH ×2 (09:12→21:43)
[2019-07-06] MEDS: METOPROLOL TARTRATE 100 MG TABLET PO SCH ×2 (09:12→21:44)
[2019-07-06] MEDS: ASPIRIN CHEW 81 MG TABLET PO SCH (09:13)
[2019-07-06] MEDS: DILTIAZEM 60 MG TABLET PO SCH ×3 (09:13→21:43)
[2019-07-06] MEDS: MENTHOL/ZINC OXIDE OINT 71 GM JAR TOP SCH ×2 (09:14→21:44)
[2019-07-06] MEDS: INSULIN GLARGINE 100 UNIT/ML SUBCUT SCH ×2 (09:14→21:47)
[2019-07-06] MEDS: AMIODARONE 200 MG TABLET PO SCH (09:14)
[2019-07-06] MEDS: predniSONE 10 MG TABLET PO SCH (09:14)
[2019-07-06] MEDS: levETIRAcetam 500 MG TABLET PO SCH (21:44)
[2019-07-07 06:21] LABS: Basophils % 0.2 % (0.0-0.8); Eosinophils # 0.8 10*3/uL (0.0-0.87); Hematocrit 32.3 VOL% (42.0-52.0); Hemoglobin 10.1 GM/DL (14.0-18.0); Immature Granulocytes % 3.4 %; Immature Granulocytes Absolute 0.53 #; Lymphocytes # 2.1 10*3/uL (1.4-4.0); Lymphocytes % 13.6 % (21.2-54.2); Mean Corpuscular HGB Conc 31.3 GM/DL (32-36); Mean Corpuscular Volume 97.6 FL (87-102); Mean Platelet Volume 11.1 FL (9.6-12.0); Monocytes % 7.2 % (1.7-12.7); NRBC # 0.02 10*3/uL; Neutrophils % 70.6 % (38.7-73.9); Platelet Count 346 T/CUMM (130-400); Red Blood Count 3.31 MC/CUMM (3.8-5.5); Red Cell Distribution Width 15.9 % (9.3-17.3); White Blood Count 15.7 T/CUMM (4-12)
[2019-07-07 06:37] LABS: Calcium 8.6 MG/DL (8.5-10.1); Osmolality,Calculated 306.9 MOS/KG (273-304)
[2019-07-07 07:04] LABS: Eosinophils 8 % (0-10); Hypochromasia Slight; Lymphocytes 12 % (20-55); Platelet Estimate Adequate; Segmented Neutrophils 75 % (50-85); Total Cells Counted 100
[2019-07-07] MEDS: INSULIN LISPRO 100 UNIT/ML SUBCUT SCH ×4 (07:23→20:31)
[2019-07-07] MEDS: ALBUTEROL/IPRATROPIUM 3 ML NEB RESP TX SCH ×3 (07:30→20:02)
[2019-07-07] MEDS: BUDESONIDE 0.25 MG/2 ML NEB RESP TX SCH ×2 (07:30→20:02)
[2019-07-07] MEDS: ASPIRIN CHEW 81 MG TABLET PO SCH (08:52)
[2019-07-07] MEDS: DILTIAZEM 60 MG TABLET PO SCH ×3 (08:52→20:29)
[2019-07-07] MEDS: MENTHOL/ZINC OXIDE OINT 71 GM JAR TOP SCH ×2 (08:52→20:31)
[2019-07-07] MEDS: ENOXAPARIN 40 MG/0.4 ML SYRINGE SUBCUT SCH (08:53)
[2019-07-07] MEDS: AMIODARONE 200 MG TABLET PO SCH (08:53)
[2019-07-07] MEDS: predniSONE 10 MG TABLET PO SCH (08:53)
[2019-07-07] MEDS: METOPROLOL TARTRATE 100 MG TABLET PO SCH ×2 (08:53→20:30)
[2019-07-07] MEDS: ASCORBIC ACID 500 MG TABLET PO SCH ×2 (08:53→20:30)
[2019-07-07] MEDS: PANTOPRAZOLE 40 MG VIAL IV SCH ×2 (08:53→20:31)
[2019-07-07] MEDS: levETIRAcetam 500 MG TABLET PO SCH ×2 (09:13→20:30)
[2019-07-07] MEDS: INSULIN GLARGINE 100 UNIT/ML SUBCUT SCH ×2 (12:55→20:30)
[2019-07-07] MEDS: POTASSIUM CHLORIDE 20 MEQ/15 ML UDCUP PER TUBE PRN ×3 (16:50→20:39)
[2019-07-08] MEDS: INSULIN LISPRO 100 UNIT/ML SUBCUT SCH ×4 (07:20→21:43)
[2019-07-08] MEDS: BUDESONIDE 0.25 MG/2 ML NEB RESP TX SCH ×2 (07:26→19:15)
[2019-07-08] MEDS: ALBUTEROL/IPRATROPIUM 3 ML NEB RESP TX SCH ×3 (07:26→19:15)
[2019-07-08] MEDS: POTASSIUM CHLORIDE 20 MEQ/15 ML UDCUP PER TUBE PRN ×2 (07:35→09:58)
[2019-07-08] MEDS: MENTHOL/ZINC OXIDE OINT 71 GM JAR TOP SCH ×2 (09:12→22:03)
[2019-07-08] MEDS: ASPIRIN CHEW 81 MG TABLET PO SCH (09:58)
[2019-07-08] MEDS: AMIODARONE 200 MG TABLET PO SCH (09:58)
[2019-07-08] MEDS: INSULIN GLARGINE 100 UNIT/ML SUBCUT SCH ×2 (09:58→22:02)
[2019-07-08] MEDS: DILTIAZEM 60 MG TABLET PO SCH ×4 (09:58→22:00)
[2019-07-08] MEDS: levETIRAcetam 500 MG TABLET PO SCH ×2 (09:58→21:58)
[2019-07-08] MEDS: METOPROLOL TARTRATE 100 MG TABLET PO SCH ×2 (09:58→22:01)
[2019-07-08] MEDS: ENOXAPARIN 40 MG/0.4 ML SYRINGE SUBCUT SCH (09:59)
[2019-07-08] MEDS: PANTOPRAZOLE 40 MG VIAL IV SCH ×2 (09:59→22:01)
[2019-07-08] MEDS: predniSONE 10 MG TABLET PO SCH (09:59)
[2019-07-08] MEDS: ASCORBIC ACID 500 MG TABLET PO SCH ×2 (09:59→21:59)
[2019-07-09] MEDS: ALBUTEROL/IPRATROPIUM 3 ML NEB RESP TX SCH ×3 (07:25→19:26)
[2019-07-09] MEDS: INSULIN LISPRO 100 UNIT/ML SUBCUT SCH ×4 (07:30→21:01)
[2019-07-09 07:32] LABS: Calcium 8.6 MG/DL (8.5-10.1); Prealbumin 23.7 MG/DL (20-40)
[2019-07-09] MEDS: MENTHOL/ZINC OXIDE OINT 71 GM JAR TOP SCH ×2 (08:37→21:00)
[2019-07-09] MEDS: PANTOPRAZOLE 40 MG VIAL IV SCH ×2 (08:53→21:00)
[2019-07-09] MEDS: ASCORBIC ACID 500 MG TABLET PO SCH ×2 (08:55→21:00)
[2019-07-09] MEDS: DILTIAZEM 60 MG TABLET PO SCH ×3 (08:56→21:00)
[2019-07-09] MEDS: AMIODARONE 200 MG TABLET PO SCH (08:57)
[2019-07-09] MEDS: predniSONE 10 MG TABLET PO SCH (08:57)
[2019-07-09] MEDS: ENOXAPARIN 40 MG/0.4 ML SYRINGE SUBCUT SCH (08:57)
[2019-07-09] MEDS: levETIRAcetam 500 MG TABLET PO SCH ×2 (08:57→21:00)
[2019-07-09] MEDS: METOPROLOL TARTRATE 100 MG TABLET PO SCH ×2 (08:57→21:00)
[2019-07-09] MEDS: ASPIRIN CHEW 81 MG TABLET PO SCH (08:57)
[2019-07-09] MEDS: INSULIN GLARGINE 100 UNIT/ML SUBCUT SCH ×3 (09:09→21:00)
[2019-07-09] MEDS: POTASSIUM CHLORIDE RIDER 10 MEQ in PREMIX 1 EACH IV SCH ×2 (10:02→10:58)
[2019-07-09] MEDS: BUDESONIDE 0.25 MG/2 ML NEB RESP TX SCH ×2 (13:08→19:26)
[2019-07-09] MEDS: TAMSULOSIN 0.4 MG CAPSULE PO SCH (16:46)
[2019-07-09] MEDS: GABAPENTIN 300 MG CAPSULE PO SCH (21:00)
[2019-07-09] MEDS: ATORVASTATIN 40 MG TABLET PO SCH (21:00)
[2019-07-10 06:15] LABS: Basophils # 0.1 10*3/uL (0.0-0.2); Basophils % 0.4 % (0.0-0.8); Eosinophils # 0.4 10*3/uL (0.0-0.87); Eosinophils % 2.6 % (0.00-10.9); Hematocrit 34.3 VOL% (42.0-52.0); Hemoglobin 11.1 GM/DL (14.0-18.0); Immature Granulocytes % 4.3 %; Immature Granulocytes Absolute 0.72 #; Lymphocytes # 2.1 10*3/uL (1.4-4.0); Lymphocytes % 12.3 % (21.2-54.2); Mean Corpuscular HGB Conc 32.4 GM/DL (32-36); Mean Corpuscular Volume 96.9 FL (87-102); Mean Platelet Volume 10.7 FL (9.6-12.0); Neutrophils % 73.4 % (38.7-73.9); Platelet Count 296 T/CUMM (130-400); Red Blood Count 3.54 MC/CUMM (3.8-5.5); White Blood Count 16.6 T/CUMM (4-12)
[2019-07-10 06:37] LABS: Eosinophils 4 % (0-10); Hypochromasia Slight; Lymphocytes 16 % (20-55); Ovalocytes Slight; Segmented Neutrophils 74 % (50-85); Total Cells Counted 100
[2019-07-10 06:38] LABS: Anisocytosis 1+; Microcytosis 1+; Platelet Estimate Normal
[2019-07-10 06:39] LABS: Polychromasia Slight
[2019-07-10] MEDS: INSULIN LISPRO 100 UNIT/ML SUBCUT SCH ×4 (07:15→22:00)
[2019-07-10] MEDS: ALBUTEROL/IPRATROPIUM 3 ML NEB RESP TX SCH ×3 (07:25→19:45)
[2019-07-10] MEDS: BUDESONIDE 0.25 MG/2 ML NEB RESP TX SCH ×2 (07:25→19:45)
[2019-07-10] MEDS: FINASTERIDE 5 MG TABLET PO SCH (08:48)
[2019-07-10] MEDS: ASCORBIC ACID 500 MG TABLET PO SCH ×2 (08:48→22:20)
[2019-07-10] MEDS: ENOXAPARIN 40 MG/0.4 ML SYRINGE SUBCUT SCH (08:48)
[2019-07-10] MEDS: levETIRAcetam 500 MG TABLET PO SCH ×2 (08:48→22:18)
[2019-07-10] MEDS: DILTIAZEM 60 MG TABLET PO SCH ×3 (08:49→22:00)
[2019-07-10] MEDS: GABAPENTIN 300 MG CAPSULE PO SCH ×2 (08:50→22:20)
[2019-07-10] MEDS: ISOSORBIDE MONONITRATE 30 MG TABLET PO SCH (08:51)
[2019-07-10] MEDS: ASPIRIN CHEW 81 MG TABLET PO SCH (08:51)
[2019-07-10] MEDS: AMIODARONE 200 MG TABLET PO SCH (08:51)
[2019-07-10] MEDS: TAMSULOSIN 0.4 MG CAPSULE PO SCH ×2 (08:51→17:37)
[2019-07-10] MEDS: METOPROLOL TARTRATE 100 MG TABLET PO SCH (08:51)
[2019-07-10] MEDS: INSULIN GLARGINE 100 UNIT/ML SUBCUT SCH ×2 (09:05→22:00)
[2019-07-10] MEDS: PANTOPRAZOLE 40 MG TABLET PO SCH (09:06)
[2019-07-10] MEDS: MENTHOL/ZINC OXIDE OINT 71 GM JAR TOP SCH ×2 (09:53→22:00)
[2019-07-10] MEDS: SODIUM CHLOR 0.9% KCL 20 MEQ 20 MEQ/1,000 ML BAG IV SCH ×2 (14:57→23:01)
[2019-07-10] MEDS: ATORVASTATIN 40 MG TABLET PO SCH (22:20)
[2019-07-11] MEDS: ALBUTEROL/IPRATROPIUM 3 ML NEB RESP TX SCH (07:05)
[2019-07-11] MEDS: BUDESONIDE 0.25 MG/2 ML NEB RESP TX SCH (07:05)
[2019-07-11 07:28] LABS: Basophils % 0.3 % (0.0-0.8); Eosinophils # 0.4 10*3/uL (0.0-0.87); Eosinophils % 2.9 % (0.00-10.9); Hemoglobin 10.4 GM/DL (14.0-18.0); Immature Granulocytes % 3.9 %; Lymphocytes # 2.2 10*3/uL (1.4-4.0); Lymphocytes % 14.5 % (21.2-54.2); Mean Corpuscular HGB Conc 31.5 GM/DL (32-36); Mean Platelet Volume 10.3 FL (9.6-12.0); Monocytes % 7.6 % (1.7-12.7); Neutrophils % 70.8 % (38.7-73.9); Platelet Count 267 T/CUMM (130-400); Red Cell Distribution Width 16.5 % (9.3-17.3); White Blood Count 15.4 T/CUMM (4-12)
[2019-07-11] MEDS: SODIUM CHLOR 0.9% KCL 20 MEQ 20 MEQ/1,000 ML BAG IV SCH (07:28)
[2019-07-11 07:52] LABS: Eosinophils 3 % (0-10); Lymphocytes 15 % (20-55); Platelet Estimate Adequate; Segmented Neutrophils 76 % (50-85); Total Cells Counted 100
[2019-07-11 07:53] LABS: Hypochromasia Slight; Microcytosis 1+
[2019-07-11] MEDS ORDERED: DILTIAZEM CD 120 MG CAPSULE PO SCH (09:00)
[2019-07-11] MEDS: ISOSORBIDE MONONITRATE 30 MG TABLET PO SCH (09:21)
[2019-07-11] MEDS: levETIRAcetam 500 MG TABLET PO SCH (09:23)
[2019-07-11] MEDS: GABAPENTIN 300 MG CAPSULE PO SCH (09:24)
[2019-07-11] MEDS: AMIODARONE 200 MG TABLET PO SCH (09:25)
[2019-07-11] MEDS: ASCORBIC ACID 500 MG TABLET PO SCH (09:26)
[2019-07-11] MEDS: FINASTERIDE 5 MG TABLET PO SCH (09:26)
[2019-07-11] MEDS: PANTOPRAZOLE 40 MG TABLET PO SCH (09:27)
[2019-07-11] MEDS: ASPIRIN CHEW 81 MG TABLET PO SCH (09:28)
[2019-07-11] MEDS: TAMSULOSIN 0.4 MG CAPSULE PO SCH (09:28)
[2019-07-11] MEDS: METOPROLOL TARTRATE 100 MG TABLET PO SCH (09:29)
[2019-07-11] MEDS: ENOXAPARIN 40 MG/0.4 ML SYRINGE SUBCUT SCH (09:30)
[2019-07-11] MEDS: MENTHOL/ZINC OXIDE OINT 71 GM JAR TOP SCH (09:32)
[2019-07-11] MEDS: INSULIN LISPRO 100 UNIT/ML SUBCUT SCH ×2 (09:32→11:46)
[2019-07-11 11:51] VITALS: BP 103/62
[2019-07-11] MEDS ORDERED: INSULIN GLARGINE 100 UNIT/ML SUBCUT SCH (21:00)
== END 2019-07-11 11:30 | DRG 97 ==
LOC: EDUNIT# → EDBD → N.ED 01:50 → SUPCPDRO 03:52 → N.EDINP 03:52 → N.CC 04:14 → N.ICU 06-15 17:53 → N.CLINP 06-28 16:37
PROVIDERS: ADMIT Family Medicine; ATTEND Family Medicine

== ENCOUNTER 2019-10-16 16:49 | Inpatient (IN) ==
[2019-10-16] MEDS ORDERED: SODIUM CHLORIDE 0.9% 1,000 ML IV STA (17:32)
[2019-10-16 17:54] LABS: Basophils % 0.2 % (0.0-0.8); Eosinophils % 0.2 % (0.00-10.9); Hematocrit 32.2 VOL% (42.0-52.0); Hemoglobin 10.5 GM/DL (14.0-18.0); Immature Granulocytes % 0.5 %; Immature Granulocytes Absolute 0.03 #; Lymphocytes # 1.2 10*3/uL (1.4-4.0); Lymphocytes % 20.5 % (21.2-54.2); Mean Corpuscular HGB Conc 32.6 GM/DL (32-36); Mean Corpuscular Volume 95.3 FL (87-102); Mean Platelet Volume 9.2 FL (9.6-12.0); Monocytes % 7.2 % (1.7-12.7); Neutrophils % 71.4 % (38.7-73.9); Platelet Count 178 T/CUMM (130-400); Red Blood Count 3.38 MC/CUMM (3.8-5.5); White Blood Count 5.9 T/CUMM (4-12)
[2019-10-16 18:19] LABS: Alanine Aminotransferase 45 U/L (16-61); Albumin 3.2 G/DL (3.4-5.0); Alkaline Phosphatase 66 U/L (45-117); Aspartate Amino Transferase 53 U/L (0-37); Bilirubin,Total < 0.39 MG/DL (0.2-1.0); Blood Urea Nitrogen 28 MG/DL (7-18); Calcium 8.8 MG/DL (8.5-10.1); Estimated Glom Filtration Rate 75 ML/MIN; Glucose 77 MG/DL (74-106); Osmolality,Calculated 277.8 MOS/KG (273-304); Total Protein 7.6 G/DL (6.4-8.3)
[2019-10-16 19:37] LABS: Apearance,Urine CLOUDY (Clear); Bacteria,Urine Many /HPF (Few); Bilirubin,Urine Negative (Negative); Blood, Urine Moderate mg/dL (Negative); Glucose,Urine (UA) Negative (Negative); Ketones,Urine 5 mg/dL (Negative); Mucus,Urine Moderate /LPF (Occasional); Nitrite,Urine Positive (Negative); Protein,Urine 100 MG/DL; Urine Color Yellow (Yellow); Urine Specific Gravity 1.018 (1.001-1.035); Urine Urobilinogen < 2.0 EU/DL (0.2-1.0); WBC,Urine 425 /HPF (0-6)
[2019-10-16] MEDS ORDERED: PIPERACILLIN/TAZOBACTAM 3,375 MG in SODIUM CHLORIDE 0.9% 100 ML IV STA (19:47)
[2019-10-16] MEDS ORDERED: DEXAMETHASONE 4 MG/1 ML VIAL IV STA (19:57)
[2019-10-16] MEDS ORDERED: BACLOFEN 10 MG TABLET PO PRN (21:33)
[2019-10-16] MEDS ORDERED: GLUCAGON 1 MG VIAL IM PRN (21:33)
[2019-10-16] MEDS ORDERED: ONDANSETRON 4 MG/2 ML VIAL IV PRN (21:33)
[2019-10-16] MEDS ORDERED: HYDROmorphone 2 MG/1 ML VIAL IV PRN (21:33)
[2019-10-16] MEDS ORDERED: DEXTROSE 50% 25 GM/50 ML VIAL IV PRN (21:33)
[2019-10-16] MEDS: HYDROXYCHLOROQUINE 200 MG TABLET PO SCH (22:10)
[2019-10-16] MEDS: ASCORBIC ACID 500 MG TABLET PO SCH (22:10)
[2019-10-16] MEDS: levETIRAcetam 500 MG TABLET PO SCH (22:10)
[2019-10-16] MEDS: FERROUS SULFATE 325 MG TABLET PO SCH (22:10)
[2019-10-16] MEDS: ATORVASTATIN 40 MG TABLET PO SCH (22:10)
[2019-10-16] MEDS: DOCUSATE SODIUM 100 MG CAPSULE PO SCH (22:10)
[2019-10-16] MEDS: cloNIDine 0.1 MG TABLET PO SCH (22:10)
[2019-10-16] MEDS: ACETAMINOPHEN 325 MG TABLET PO PRN (22:20)
[2019-10-16] MEDS: MENTHOL/ZINC OXIDE OINT 71 GM JAR TOP SCH (22:30)
[2019-10-16] MEDS: SODIUM CHLORIDE 0.9% 1,000 ML IV SCH (23:00)
[2019-10-17] MEDS: INSULIN REGULAR 100 UNIT/ML SUBCUT SCH ×2 (00:09→06:02)
[2019-10-17] MEDS: methylPREDNISolone SOD SUC 40 MG/1 ML VIAL IV SCH ×5 (03:00→21:57)
[2019-10-17] MEDS: PIPERACILLIN/TAZOBACTAM 3,375 MG in SODIUM CHLORIDE 0.9% 100 ML IV SCH ×3 (05:00→22:00)
[2019-10-17 05:05] LABS: Basophils % 0.2 % (0.0-0.8); Eosinophils % 0.2 % (0.00-10.9); Immature Granulocytes % 0.4 %; Immature Granulocytes Absolute 0.02 #; Lymphocytes # 0.9 10*3/uL (1.4-4.0); Lymphocytes % 16.2 % (21.2-54.2); Mean Corpuscular HGB Conc 32.3 GM/DL (32-36); Mean Corpuscular Volume 98.4 FL (87-102); Mean Platelet Volume 9.3 FL (9.6-12.0); Monocytes % 3.3 % (1.7-12.7); Neutrophils % 79.7 % (38.7-73.9); Platelet Count 164 T/CUMM (130-400); Red Blood Count 3.15 MC/CUMM (3.8-5.5); White Blood Count 5.4 T/CUMM (4-12)
[2019-10-17 05:43] LABS: Albumin 2.9 G/DL (3.4-5.0); Bilirubin,Total 0.5 MG/DL (0.2-1.0); Calcium 8.6 MG/DL (8.5-10.1); Total Protein 7.2 G/DL (6.4-8.3)
[2019-10-17] MEDS: SODIUM CHLORIDE 0.9% 1,000 ML IV SCH ×2 (06:41→15:12)
[2019-10-17] MEDS: ALBUTEROL/IPRATROPIUM 3 ML NEB RESP TX SCH ×3 (07:20→13:19)
[2019-10-17] MEDS: INSULIN LISPRO 100 UNIT/ML SUBCUT SCH ×4 (08:14→21:59)
[2019-10-17] MEDS: glyBURIDE 5 MG TABLET PO SCH ×2 (08:20→17:50)
[2019-10-17] MEDS: metFORMIN 500 MG TABLET PO SCH ×2 (08:20→16:31)
[2019-10-17] MEDS: MENTHOL/ZINC OXIDE OINT 71 GM JAR TOP SCH ×2 (09:00→22:01)
[2019-10-17] MEDS: ASCORBIC ACID 500 MG TABLET PO SCH ×2 (09:00→21:56)
[2019-10-17] MEDS: FERROUS SULFATE 325 MG TABLET PO SCH ×2 (09:00→21:58)
[2019-10-17] MEDS: HYDROXYCHLOROQUINE 200 MG TABLET PO SCH ×2 (09:00→21:57)
[2019-10-17] MEDS: levETIRAcetam 500 MG TABLET PO SCH ×2 (09:00→21:58)
[2019-10-17] MEDS: cloNIDine 0.1 MG TABLET PO SCH ×2 (09:00→21:58)
[2019-10-17] MEDS: MONTELUKAST 10 MG TABLET PO SCH (09:00)
[2019-10-17] MEDS: CLOPIDOGREL 75 MG TABLET PO SCH (09:00)
[2019-10-17] MEDS: ASPIRIN CHEW 81 MG TABLET PO SCH (09:00)
[2019-10-17] MEDS: LOSARTAN 50 MG TABLET PO SCH (09:00)
[2019-10-17] MEDS: PANTOPRAZOLE 40 MG TABLET PO SCH (11:12)
[2019-10-17] MEDS: DOCUSATE SODIUM 100 MG CAPSULE PO SCH ×2 (11:12→21:58)
[2019-10-17] MEDS: ATORVASTATIN 40 MG TABLET PO SCH (21:58)
[2019-10-18] MEDS: PIPERACILLIN/TAZOBACTAM 3,375 MG in SODIUM CHLORIDE 0.9% 100 ML IV SCH ×3 (04:17→21:23)
[2019-10-18] MEDS: methylPREDNISolone SOD SUC 40 MG/1 ML VIAL IV SCH ×4 (04:17→21:23)
[2019-10-18] MEDS: ALBUTEROL/IPRATROPIUM 3 ML NEB RESP TX SCH (06:51)
[2019-10-18 06:54] LABS: Basophils % 0.1 % (0.0-0.8); Hematocrit 29.8 VOL% (42.0-52.0); Hemoglobin 9.9 GM/DL (14.0-18.0); Immature Granulocytes % 0.5 %; Immature Granulocytes Absolute 0.05 #; Lymphocytes # 1.1 10*3/uL (1.4-4.0); Lymphocytes % 11.1 % (21.2-54.2); Mean Corpuscular HGB Conc 33.2 GM/DL (32-36); Mean Corpuscular Volume 95.8 FL (87-102); Mean Platelet Volume 10.2 FL (9.6-12.0); Monocytes % 4.2 % (1.7-12.7); Neutrophils % 84.1 % (38.7-73.9); Platelet Count 193 T/CUMM (130-400); Red Blood Count 3.11 MC/CUMM (3.8-5.5); Red Cell Distribution Width 13.1 % (9.3-17.3); White Blood Count 9.6 T/CUMM (4-12)
[2019-10-18 07:18] LABS: Albumin 2.7 G/DL (3.4-5.0); Bilirubin,Total 0.6 MG/DL (0.2-1.0); Calcium 8.5 MG/DL (8.5-10.1); Osmolality,Calculated 288.3 MOS/KG (273-304); Risk Ratio 3.11; Thyroid Stimulating Hormone 0.175 uIU/ml (0.358-3.74); Total Protein 6.8 G/DL (6.4-8.3)
[2019-10-18] MEDS: levETIRAcetam 500 MG TABLET PO SCH ×2 (08:25→21:24)
[2019-10-18] MEDS: cloNIDine 0.1 MG TABLET PO SCH ×2 (08:25→21:24)
[2019-10-18] MEDS: ASPIRIN CHEW 81 MG TABLET PO SCH (08:26)
[2019-10-18] MEDS: PANTOPRAZOLE 40 MG TABLET PO SCH (08:26)
[2019-10-18] MEDS: FERROUS SULFATE 325 MG TABLET PO SCH ×2 (08:26→21:24)
[2019-10-18] MEDS: glyBURIDE 5 MG TABLET PO SCH ×2 (08:26→16:40)
[2019-10-18] MEDS: ASCORBIC ACID 500 MG TABLET PO SCH ×2 (08:26→21:24)
[2019-10-18] MEDS: metFORMIN 500 MG TABLET PO SCH ×2 (08:26→16:40)
[2019-10-18] MEDS: DOCUSATE SODIUM 100 MG CAPSULE PO SCH ×2 (08:27→21:24)
[2019-10-18] MEDS: HYDROXYCHLOROQUINE 200 MG TABLET PO SCH ×2 (08:27→21:24)
[2019-10-18] MEDS: MONTELUKAST 10 MG TABLET PO SCH (08:27)
[2019-10-18] MEDS: LOSARTAN 50 MG TABLET PO SCH (08:27)
[2019-10-18] MEDS: CLOPIDOGREL 75 MG TABLET PO SCH (08:27)
[2019-10-18] MEDS ORDERED: BACLOFEN 10 MG TABLET PO SCH (09:00)
[2019-10-18] MEDS: INSULIN LISPRO 100 UNIT/ML SUBCUT SCH ×4 (09:22→21:25)
[2019-10-18] MEDS: GABAPENTIN 600 MG TABLET PO SCH ×2 (09:57→21:23)
[2019-10-18] MEDS: BACLOFEN 10 MG TABLET PO SCH ×3 (09:57→21:24)
[2019-10-18] MEDS: MENTHOL/ZINC OXIDE OINT 71 GM JAR TOP SCH ×2 (10:20→21:23)
[2019-10-18] MEDS: MAGNESIUM SULF INJ 2 GM in SODIUM CHLORIDE 0.9% 1,000 ML IV SCH (11:37)
[2019-10-18] MEDS: SODIUM CHLORIDE 0.9% 1,000 ML IV SCH (15:29)
[2019-10-18] MEDS: ATORVASTATIN 40 MG TABLET PO SCH (21:24)
[2019-10-19] MEDS: PIPERACILLIN/TAZOBACTAM 3,375 MG in SODIUM CHLORIDE 0.9% 100 ML IV SCH (04:24)
[2019-10-19] MEDS: methylPREDNISolone SOD SUC 40 MG/1 ML VIAL IV SCH (04:25)
[2019-10-19 06:09] LABS: Basophils % 0.1 % (0.0-0.8); Hematocrit 30.4 VOL% (42.0-52.0); Hemoglobin 9.9 GM/DL (14.0-18.0); Immature Granulocytes Absolute 0.09 #; Lymphocytes # 0.6 10*3/uL (1.4-4.0); Lymphocytes % 6.7 % (21.2-54.2); Mean Corpuscular HGB Conc 32.6 GM/DL (32-36); Mean Corpuscular Volume 96.8 FL (87-102); Monocytes % 3.6 % (1.7-12.7); Neutrophils % 88.6 % (38.7-73.9); Platelet Count 229 T/CUMM (130-400); Red Blood Count 3.14 MC/CUMM (3.8-5.5); Red Cell Distribution Width 13.2 % (9.3-17.3); White Blood Count 9.4 T/CUMM (4-12)
[2019-10-19 06:50] LABS: Albumin 2.6 G/DL (3.4-5.0); Bilirubin,Total 0.5 MG/DL (0.2-1.0); Calcium 8.3 MG/DL (8.5-10.1); Osmolality,Calculated 286.3 MOS/KG (273-304); Total Protein 6.7 G/DL (6.4-8.3)
[2019-10-19] MEDS: INSULIN LISPRO 100 UNIT/ML SUBCUT SCH ×3 (08:09→17:27)
[2019-10-19] MEDS ORDERED: ENOXAPARIN 40 MG/0.4 ML SYRINGE SUBCUT SCH (09:00)
[2019-10-19] MEDS: metFORMIN 500 MG TABLET PO SCH ×2 (09:08→17:26)
[2019-10-19] MEDS: PANTOPRAZOLE 40 MG TABLET PO SCH (09:08)
[2019-10-19] MEDS: levETIRAcetam 500 MG TABLET PO SCH ×2 (09:08→20:40)
[2019-10-19] MEDS: DOCUSATE SODIUM 100 MG CAPSULE PO SCH ×2 (09:08→20:41)
[2019-10-19] MEDS: ASPIRIN CHEW 81 MG TABLET PO SCH (09:09)
[2019-10-19] MEDS: ASCORBIC ACID 500 MG TABLET PO SCH ×2 (09:09→20:40)
[2019-10-19] MEDS: FERROUS SULFATE 325 MG TABLET PO SCH ×2 (09:09→20:40)
[2019-10-19] MEDS: cloNIDine 0.1 MG TABLET PO SCH (09:09)
[2019-10-19] MEDS: GABAPENTIN 600 MG TABLET PO SCH ×2 (09:09→20:40)
[2019-10-19] MEDS: BACLOFEN 10 MG TABLET PO SCH ×3 (09:09→20:41)
[2019-10-19] MEDS: MONTELUKAST 10 MG TABLET PO SCH (09:09)
[2019-10-19] MEDS: CLOPIDOGREL 75 MG TABLET PO SCH (09:09)
[2019-10-19] MEDS: LOSARTAN 50 MG TABLET PO SCH (09:09)
[2019-10-19] MEDS: MENTHOL/ZINC OXIDE OINT 71 GM JAR TOP SCH ×2 (09:10→20:41)
[2019-10-19] MEDS: glyBURIDE 5 MG TABLET PO SCH ×2 (09:10→17:27)
[2019-10-19] MEDS: HYDROXYCHLOROQUINE 200 MG TABLET PO SCH ×2 (09:10→20:40)
[2019-10-19] MEDS: MAGNESIUM SULF INJ 2 GM in SODIUM CHLORIDE 0.9% 1,000 ML IV SCH (09:49)
[2019-10-19] MEDS ORDERED: DEXAMETHASONE 10 MG/1 ML VIAL IV SCH (15:00)
[2019-10-19] MEDS ORDERED: FUROSEMIDE 40 MG/4 ML VIAL ONE (16:32)
[2019-10-19] MEDS ORDERED: FUROSEMIDE 40 MG/4 ML VIAL IV ONE (16:37)
[2019-10-19] MEDS ORDERED: SUCCINYLCHOLINE 200 MG/10 ML VIAL ONE (16:53)
[2019-10-19 17:02] LABS: ABG HCO3 15.2 MMOL/L (20-26); ABG Oxygen Saturation 61.5 % (95-100); ABG PCO2 45.1 MM HG (35-48); ABG TCO2 15.7 MMOL/L (23-27)
[2019-10-19 17:18] LABS: ABG PH 7.193 (7.35-7.45); ABG PO2 40.3 MM HG (80-95)
[2019-10-19] MEDS ORDERED: AZITHROMYCIN INJ 500 MG in SODIUM CHLORIDE 0.9% 250 ML IV ONE (17:20)
[2019-10-19] MEDS: cefTRIAXone 1,000 MG in SYRINGE 1 EACH IV SCH (17:28)
[2019-10-19] MEDS: fentaNYL INJ 1,250 MCG in SODIUM CHLORIDE 0.9% 225 ML IV PRN (18:20)
[2019-10-19 18:23] LABS: ABG Base Excess -11.1 MMOL/L (-2.5-2.5); ABG HCO3 15.7 MMOL/L (20-26); ABG Oxygen Saturation 94.2 % (95-100); ABG PCO2 42.9 MM HG (35-48); ABG PO2 86.7 MM HG (80-95); ABG TCO2 15.4 MMOL/L (23-27); Allen Test Positive; Pt O2 Delivery Device Ventilator
[2019-10-19] MEDS: ENOXAPARIN 80 MG/0.8 ML SYRINGE SUBCUT SCH (18:41)
[2019-10-19 19:05] LABS: Alanine Aminotransferase 44 U/L (16-61); Albumin 2.6 G/DL (3.4-5.0); Alkaline Phosphatase 68 U/L (45-117); Aspartate Amino Transferase 51 U/L (0-37); Bilirubin,Total < 0.39 MG/DL (0.2-1.0); Blood Urea Nitrogen 26 MG/DL (7-18); Calcium 8.3 MG/DL (8.5-10.1); Estimated Glom Filtration Rate 67 ML/MIN; Glucose 179 MG/DL (74-106); Osmolality,Calculated 287.4 MOS/KG (273-304); Total Protein 7.2 G/DL (6.4-8.3)
[2019-10-19] MEDS: ZINC GLUCONATE 50 MG TABLET PO SCH (20:40)
[2019-10-19] MEDS: ATORVASTATIN 40 MG TABLET PO SCH (20:41)
[2019-10-20] MEDS: MAGNESIUM SULF INJ 2 GM in SODIUM CHLORIDE 0.9% 1,000 ML IV SCH ×2 (01:18→13:36)
[2019-10-20] MEDS: INSULIN LISPRO 100 UNIT/ML SUBCUT SCH ×4 (02:28→18:57)
[2019-10-20] MEDS: cloNIDine 0.1 MG TABLET PO SCH ×3 (02:28→21:25)
[2019-10-20 05:41] LABS: Basophils % 0.1 % (0.0-0.8); Hematocrit 28.7 VOL% (42.0-52.0); Hemoglobin 9.1 GM/DL (14.0-18.0); Immature Granulocytes % 0.6 %; Immature Granulocytes Absolute 0.06 #; Lymphocytes # 0.5 10*3/uL (1.4-4.0); Lymphocytes % 5.1 % (21.2-54.2); Mean Corpuscular HGB Conc 31.7 GM/DL (32-36); Mean Corpuscular Volume 99.3 FL (87-102); Mean Platelet Volume 9.9 FL (9.6-12.0); Monocytes % 3.6 % (1.7-12.7); Neutrophils % 90.6 % (38.7-73.9); Platelet Count 242 T/CUMM (130-400); Red Blood Count 2.89 MC/CUMM (3.8-5.5); Red Cell Distribution Width 13.4 % (9.3-17.3); White Blood Count 10.3 T/CUMM (4-12)
[2019-10-20 06:08] LABS: Calcium 7.9 MG/DL (8.5-10.1); Osmolality,Calculated 290.1 MOS/KG (273-304)
[2019-10-20 06:10] LABS: Ferritin 1762.7 ng/ml (26-388)
[2019-10-20] MEDS: ENOXAPARIN 80 MG/0.8 ML SYRINGE SUBCUT SCH ×2 (06:24→16:25)
[2019-10-20 08:22] LABS: ABG Base Excess -7.1 MMOL/L (-2.5-2.5); ABG HCO3 18.6 MMOL/L (20-26); ABG Oxygen Saturation 99.2 % (95-100); ABG PCO2 36.9 MM HG (35-48); ABG TCO2 17.2 MMOL/L (23-27)
[2019-10-20] MEDS: ALBUTEROL/IPRATROPIUM 3 ML NEB RESP TX SCH (08:48)
[2019-10-20] MEDS: DEXAMETHASONE 10 MG/1 ML VIAL IV SCH (08:48)
[2019-10-20] MEDS: CETIRIZINE 10 MG TABLET PO SCH (08:49)
[2019-10-20] MEDS: ASPIRIN CHEW 81 MG TABLET PO SCH (08:49)
[2019-10-20] MEDS: LOSARTAN 50 MG TABLET PO SCH (08:49)
[2019-10-20] MEDS: ZINC GLUCONATE 50 MG TABLET PO SCH ×2 (08:49→21:25)
[2019-10-20] MEDS: levETIRAcetam 500 MG TABLET PO SCH ×2 (08:49→21:25)
[2019-10-20] MEDS: MENTHOL/ZINC OXIDE OINT 71 GM JAR TOP SCH ×2 (08:50→21:25)
[2019-10-20] MEDS: GABAPENTIN 600 MG TABLET PO SCH ×2 (08:50→21:25)
[2019-10-20] MEDS: AZITHROMYCIN 250 MG TABLET PO SCH (08:50)
[2019-10-20] MEDS: HYDROXYCHLOROQUINE 200 MG TABLET PO SCH ×2 (08:50→21:25)
[2019-10-20] MEDS: DOCUSATE SODIUM 100 MG/10 ML UDCUP PO SCH ×2 (08:50→21:25)
[2019-10-20] MEDS: MONTELUKAST 10 MG TABLET PO SCH (08:50)
[2019-10-20] MEDS: CLOPIDOGREL 75 MG TABLET PO SCH (08:50)
[2019-10-20] MEDS: FERROUS SULFATE 325 MG TABLET PO SCH ×2 (08:50→21:25)
[2019-10-20] MEDS: ASCORBIC ACID 500 MG TABLET PO SCH ×2 (08:50→21:25)
[2019-10-20] MEDS: PANTOPRAZOLE 40 MG TABLET PO SCH (08:50)
[2019-10-20] MEDS: BACLOFEN 10 MG TABLET PO SCH ×3 (08:50→21:25)
[2019-10-20 09:47] LABS: Band Neutrophils 3 % (0-10); Lymphocytes 4 % (20-55); Metamyelocytes 4 %; Segmented Neutrophils 85 % (50-85); Total Cells Counted 100
[2019-10-20 09:48] LABS: Acanthocytes Few; Anisocytosis 1+; Macrocytosis 1+; Platelet Estimate Normal; Polychromasia 1+
[2019-10-20] MEDS ORDERED: SODIUM CHLORIDE 0.45% 1,000 ML IV SCH (11:30)
[2019-10-20] MEDS: PANTOPRAZOLE 40 MG VIAL IV SCH (13:27)
[2019-10-20] MEDS ORDERED: SODIUM BICARB INJ 100 MEQ in SODIUM CHLORIDE 0.45% 1,000 ML IV SCH (13:30)
[2019-10-20] MEDS: glyBURIDE 5 MG TABLET PO SCH ×2 (13:35→18:42)
[2019-10-20] MEDS: fentaNYL INJ 1,250 MCG in SODIUM CHLORIDE 0.9% 225 ML IV PRN (13:37)
[2019-10-20] MEDS: SODIUM BICARB INJ 100 MEQ in STERILE WATER INJ 1,000 ML IV SCH (13:57)
[2019-10-20 14:17] LABS: ABG Base Excess -9.1 MMOL/L (-2.5-2.5); ABG HCO3 17.1 MMOL/L (20-26); ABG Oxygen Saturation 96.9 % (95-100); ABG PCO2 38.3 MM HG (35-48); ABG PH 7.268 (7.35-7.45); ABG PO2 102.9 MM HG (80-95); ABG TCO2 18.3 MMOL/L (23-27); Allen Test Positive; Pt O2 Delivery Device Ventilator
[2019-10-20] MEDS: cefTRIAXone 1,000 MG in SYRINGE 1 EACH IV SCH (16:25)
[2019-10-20] MEDS: ATORVASTATIN 40 MG TABLET PO SCH (21:25)
[2019-10-21] MEDS: INSULIN LISPRO 100 UNIT/ML SUBCUT SCH ×4 (00:34→17:02)
[2019-10-21 04:21] LABS: Hematocrit 25.9 VOL% (42.0-52.0); Hemoglobin 8.3 GM/DL (14.0-18.0); Immature Granulocytes % 1.7 %; Immature Granulocytes Absolute 0.13 #; Lymphocytes # 0.5 10*3/uL (1.4-4.0); Lymphocytes % 6.9 % (21.2-54.2); Mean Corpuscular Volume 99.2 FL (87-102); Monocytes % 3.6 % (1.7-12.7); Neutrophils % 87.8 % (38.7-73.9); Platelet Count 225 T/CUMM (130-400); Red Blood Count 2.61 MC/CUMM (3.8-5.5); Red Cell Distribution Width 13.7 % (9.3-17.3); White Blood Count 7.8 T/CUMM (4-12)
[2019-10-21 04:42] LABS: Calcium 8.2 MG/DL (8.5-10.1); Osmolality,Calculated 294.3 MOS/KG (273-304)
[2019-10-21 05:11] LABS: ABG Base Excess -6.1 MMOL/L (-2.5-2.5); ABG HCO3 19.6 MMOL/L (20-26); ABG Oxygen Saturation 90.5 % (95-100); ABG PCO2 39.9 MM HG (35-48); ABG PO2 64.1 MM HG (80-95); ABG TCO2 20.9 MMOL/L (23-27); Allen Test Positive; Pt O2 Delivery Device Ventilator
[2019-10-21] MEDS: fentaNYL INJ 1,250 MCG in SODIUM CHLORIDE 0.9% 225 ML IV PRN ×2 (05:34→12:05)
[2019-10-21] MEDS: ENOXAPARIN 80 MG/0.8 ML SYRINGE SUBCUT SCH ×2 (06:18→17:02)
[2019-10-21 06:57] LABS: Band Neutrophils 4 % (0-10); Lymphocytes 6 % (20-55); Metamyelocytes 1 %; Segmented Neutrophils 81 % (50-85); Total Cells Counted 100
[2019-10-21 06:58] LABS: Burr Cells Few; Platelet Estimate Normal; Polychromasia Slight; Schistocytes Few
[2019-10-21] MEDS: CLOPIDOGREL 75 MG TABLET PO SCH (08:30)
[2019-10-21] MEDS: MONTELUKAST 10 MG TABLET PO SCH (08:30)
[2019-10-21] MEDS: ASPIRIN CHEW 81 MG TABLET PO SCH (08:30)
[2019-10-21] MEDS: levETIRAcetam 500 MG TABLET PO SCH ×2 (08:30→21:48)
[2019-10-21] MEDS: AZITHROMYCIN 250 MG TABLET PO SCH (08:30)
[2019-10-21] MEDS: PANTOPRAZOLE 40 MG VIAL IV SCH (08:31)
[2019-10-21] MEDS: GABAPENTIN 600 MG TABLET PO SCH ×2 (08:31→22:38)
[2019-10-21] MEDS: CETIRIZINE 10 MG TABLET PO SCH (08:31)
[2019-10-21] MEDS: BACLOFEN 10 MG TABLET PO SCH ×3 (08:31→22:37)
[2019-10-21] MEDS: DOCUSATE SODIUM 100 MG/10 ML UDCUP PO SCH ×2 (08:31→21:48)
[2019-10-21] MEDS: ZINC GLUCONATE 50 MG TABLET PO SCH ×2 (08:31→21:48)
[2019-10-21] MEDS: HYDROXYCHLOROQUINE 200 MG TABLET PO SCH ×2 (08:31→21:48)
[2019-10-21] MEDS: glyBURIDE 5 MG TABLET PO SCH ×2 (08:31→17:02)
[2019-10-21] MEDS: DEXAMETHASONE 10 MG/1 ML VIAL IV SCH (08:31)
[2019-10-21] MEDS: FERROUS SULFATE 325 MG TABLET PO SCH ×2 (08:31→21:48)
[2019-10-21] MEDS: MENTHOL/ZINC OXIDE OINT 71 GM JAR TOP SCH ×2 (08:32→21:48)
[2019-10-21] MEDS: cloNIDine 0.1 MG TABLET PO SCH ×2 (08:32→22:37)
[2019-10-21] MEDS: LOSARTAN 50 MG TABLET PO SCH (08:32)
[2019-10-21] MEDS: SODIUM BICARB INJ 100 MEQ in STERILE WATER INJ 1,000 ML IV SCH (11:42)
[2019-10-21] MEDS: ASCORBIC ACID 500 MG TABLET PO SCH ×2 (12:17→21:48)
[2019-10-21] MEDS: fentaNYL INJ 2,500 MCG in SODIUM CHLORIDE 0.9% 450 ML IV PRN (16:20)
[2019-10-21] MEDS: cefTRIAXone 1,000 MG in SYRINGE 1 EACH IV SCH (17:02)
[2019-10-21] MEDS: ATORVASTATIN 40 MG TABLET PO SCH (21:48)
[2019-10-22] MEDS: INSULIN LISPRO 100 UNIT/ML SUBCUT SCH ×4 (01:33→19:14)
[2019-10-22] MEDS: SODIUM BICARB INJ 100 MEQ in STERILE WATER INJ 1,000 ML IV SCH ×2 (02:25→17:32)
[2019-10-22 04:45] LABS: ABG Base Excess -1.1 MMOL/L (-2.5-2.5); ABG Oxygen Saturation 98.1 % (95-100); ABG PCO2 35.3 MM HG (35-48); ABG PH 7.431 (7.35-7.45); ABG PO2 125.1 MM HG (80-95); Allen Test Positive; Pt O2 Delivery Device Ventilator
[2019-10-22 04:51] LABS: Basophils % 0.1 % (0.0-0.8); Eosinophils % 0.4 % (0.00-10.9); Hematocrit 24.5 VOL% (42.0-52.0); Hemoglobin 7.7 GM/DL (14.0-18.0); Immature Granulocytes % 3.6 %; Immature Granulocytes Absolute 0.25 #; Lymphocytes # 0.9 10*3/uL (1.4-4.0); Lymphocytes % 12.5 % (21.2-54.2); Mean Corpuscular HGB Conc 31.4 GM/DL (32-36); Mean Corpuscular Volume 98.4 FL (87-102); Mean Platelet Volume 10.1 FL (9.6-12.0); Monocytes % 3.4 % (1.7-12.7); Platelet Count 260 T/CUMM (130-400); Red Blood Count 2.49 MC/CUMM (3.8-5.5); Red Cell Distribution Width 13.6 % (9.3-17.3)
[2019-10-22 05:02] LABS: Calcium 8.2 MG/DL (8.5-10.1); Osmolality,Calculated 299.6 MOS/KG (273-304); Prealbumin 10.7 MG/DL (20-40)
[2019-10-22 05:19] LABS: Hypochromasia 1+; Ovalocytes Slight; Platelet Estimate Adequate
[2019-10-22 05:20] LABS: Microcytosis Slight
[2019-10-22] MEDS: ENOXAPARIN 80 MG/0.8 ML SYRINGE SUBCUT SCH ×2 (06:15→19:30)
[2019-10-22] MEDS: DEXAMETHASONE 10 MG/1 ML VIAL IV SCH (08:05)
[2019-10-22] MEDS: ASPIRIN CHEW 81 MG TABLET PO SCH (08:05)
[2019-10-22] MEDS: MONTELUKAST 10 MG TABLET PO SCH (08:05)
[2019-10-22] MEDS: FERROUS SULFATE 325 MG TABLET PO SCH ×2 (08:05→21:16)
[2019-10-22] MEDS: CLOPIDOGREL 75 MG TABLET PO SCH (08:05)
[2019-10-22] MEDS: CETIRIZINE 10 MG TABLET PO SCH (08:05)
[2019-10-22] MEDS: MENTHOL/ZINC OXIDE OINT 71 GM JAR TOP SCH ×2 (08:05→21:16)
[2019-10-22] MEDS: glyBURIDE 5 MG TABLET PO SCH (08:05)
[2019-10-22] MEDS: DOCUSATE SODIUM 100 MG/10 ML UDCUP PO SCH ×2 (08:05→21:16)
[2019-10-22] MEDS: PANTOPRAZOLE 40 MG VIAL IV SCH (08:07)
[2019-10-22 10:04] LABS: Free T4 (Free Thyroxine) 1.49 NG/DL (0.76-1.46)
[2019-10-22] MEDS: BACLOFEN 10 MG TABLET PO SCH ×3 (10:12→21:16)
[2019-10-22] MEDS: GABAPENTIN 600 MG TABLET PO SCH ×2 (10:12→21:16)
[2019-10-22] MEDS: levETIRAcetam 500 MG TABLET PO SCH ×2 (10:12→21:16)
[2019-10-22] MEDS: HYDROXYCHLOROQUINE 200 MG TABLET PO SCH ×2 (10:13→23:28)
[2019-10-22] MEDS: ZINC GLUCONATE 50 MG TABLET PO SCH ×2 (10:14→21:16)
[2019-10-22] MEDS: ASCORBIC ACID 500 MG TABLET PO SCH ×2 (10:14→21:16)
[2019-10-22] MEDS: AZITHROMYCIN 250 MG TABLET PO SCH (10:15)
[2019-10-22] MEDS: cloNIDine 0.1 MG TABLET PO SCH ×2 (12:55→21:16)
[2019-10-22] MEDS: fentaNYL INJ 2,500 MCG in SODIUM CHLORIDE 0.9% 450 ML IV PRN (12:55)
[2019-10-22] MEDS ORDERED: POTASSIUM PHOSPHATE 30 MMOL in SODIUM CHLORIDE 0.9% 250 ML IV ONE (13:00)
[2019-10-22] MEDS: amLODIPine 5 MG TABLET PO SCH (16:34)
[2019-10-22] MEDS: cefTRIAXone 1,000 MG in SYRINGE 1 EACH IV SCH (18:45)
[2019-10-22] MEDS: ATORVASTATIN 40 MG TABLET PO SCH (21:16)
[2019-10-22] MEDS: INSULIN GLARGINE 100 UNIT/ML SUBCUT SCH (21:18)
[2019-10-23] MEDS: INSULIN LISPRO 100 UNIT/ML SUBCUT SCH ×4 (00:39→17:08)
[2019-10-23 03:34] LABS: ABG Base Excess 2.6 MMOL/L (-2.5-2.5); ABG HCO3 26.7 MMOL/L (20-26); ABG Oxygen Saturation 98.9 % (95-100); ABG PCO2 35.6 MM HG (35-48); ABG PH 7.472 (7.35-7.45); ABG TCO2 23.5 MMOL/L (23-27); Allen Test Positive; Pt O2 Delivery Device Ventilator
[2019-10-23 04:55] LABS: Basophils % 0.3 % (0.0-0.8); Eosinophils # 0.1 10*3/uL (0.0-0.87); Hematocrit 23.7 VOL% (42.0-52.0); Hemoglobin 7.8 GM/DL (14.0-18.0); Immature Granulocytes % 4.8 %; Immature Granulocytes Absolute 0.34 #; Lymphocytes # 1.1 10*3/uL (1.4-4.0); Lymphocytes % 15.8 % (21.2-54.2); Mean Corpuscular HGB Conc 32.9 GM/DL (32-36); Mean Corpuscular Volume 95.2 FL (87-102); Monocytes % 5.8 % (1.7-12.7); Neutrophils % 71.3 % (38.7-73.9); Platelet Count 277 T/CUMM (130-400); Red Blood Count 2.49 MC/CUMM (3.8-5.5); Red Cell Distribution Width 13.5 % (9.3-17.3); White Blood Count 7.1 T/CUMM (4-12)
[2019-10-23 05:03] LABS: Calcium 8.2 MG/DL (8.5-10.1); Osmolality,Calculated 301.6 MOS/KG (273-304)
[2019-10-23 05:28] LABS: Eosinophils 4 % (0-10); Hypochromasia 1+; Lymphocytes 13 % (20-55); Microcytosis Slight; Ovalocytes Slight; Platelet Estimate Adequate; Segmented Neutrophils 75 % (50-85); Total Cells Counted 100
[2019-10-23] MEDS: fentaNYL INJ 2,500 MCG in SODIUM CHLORIDE 0.9% 450 ML IV PRN (06:42)
[2019-10-23] MEDS ORDERED: SODIUM CHLORIDE 0.9% 1,000 ML IV PRN (07:21)
[2019-10-23] MEDS ORDERED: VECURONIUM 10 MG VIAL IV ONE ×2 (08:22→08:24)
[2019-10-23] MEDS: cloNIDine 0.1 MG TABLET PO SCH ×2 (08:25→20:07)
[2019-10-23] MEDS: SODIUM BICARB INJ 100 MEQ in STERILE WATER INJ 1,000 ML IV SCH ×2 (08:26→23:14)
[2019-10-23] MEDS ORDERED: cloNIDine 0.1 MG TABLET PER TUBE ONE (08:30)
[2019-10-23] MEDS ORDERED: MIDAZOLAM 100 MG in SODIUM CHLORIDE 0.9% 80 ML IV PRN (08:31)
[2019-10-23] MEDS: DEXAMETHASONE 10 MG/1 ML VIAL IV SCH (10:33)
[2019-10-23] MEDS: PANTOPRAZOLE 40 MG VIAL IV SCH (10:34)
[2019-10-23] MEDS: ENOXAPARIN 80 MG/0.8 ML SYRINGE SUBCUT SCH ×2 (10:38→20:04)
[2019-10-23] MEDS: DOCUSATE SODIUM 100 MG/10 ML UDCUP PO SCH ×2 (10:39→20:05)
[2019-10-23] MEDS: AZITHROMYCIN 250 MG TABLET PO SCH (10:44)
[2019-10-23] MEDS: MONTELUKAST 10 MG TABLET PO SCH (10:44)
[2019-10-23] MEDS: levETIRAcetam 500 MG TABLET PO SCH ×2 (10:44→20:05)
[2019-10-23] MEDS: GABAPENTIN 600 MG TABLET PO SCH ×2 (10:44→20:06)
[2019-10-23] MEDS: CLOPIDOGREL 75 MG TABLET PO SCH (10:44)
[2019-10-23] MEDS: ZINC GLUCONATE 50 MG TABLET PO SCH ×2 (10:45→20:06)
[2019-10-23] MEDS: FERROUS SULFATE 325 MG TABLET PO SCH ×2 (10:45→20:07)
[2019-10-23] MEDS: BACLOFEN 10 MG TABLET PO SCH ×3 (10:46→20:06)
[2019-10-23] MEDS: ASPIRIN CHEW 81 MG TABLET PO SCH (10:46)
[2019-10-23] MEDS: MENTHOL/ZINC OXIDE OINT 71 GM JAR TOP SCH ×2 (10:46→20:08)
[2019-10-23] MEDS: CETIRIZINE 10 MG TABLET PO SCH (10:46)
[2019-10-23] MEDS: amLODIPine 5 MG TABLET PO SCH (10:46)
[2019-10-23] MEDS: ASCORBIC ACID 500 MG TABLET PO SCH ×2 (10:48→20:07)
[2019-10-23] MEDS ORDERED: POTASSIUM PHOSPHATE 30 MMOL in SODIUM CHLORIDE 0.9% 250 ML IV ONE (15:00)
[2019-10-23] MEDS: cefTRIAXone 1,000 MG in SYRINGE 1 EACH IV SCH (16:22)
[2019-10-23] MEDS: INSULIN GLARGINE 100 UNIT/ML SUBCUT SCH (20:05)
[2019-10-23] MEDS: ATORVASTATIN 40 MG TABLET PO SCH (20:07)
[2019-10-24] MEDS: INSULIN LISPRO 100 UNIT/ML SUBCUT SCH ×4 (00:09→17:35)
[2019-10-24] MEDS: fentaNYL INJ 2,500 MCG in SODIUM CHLORIDE 0.9% 450 ML IV PRN ×2 (00:43→22:55)
[2019-10-24 04:15] LABS: Calcium 7.8 MG/DL (8.5-10.1); Osmolality,Calculated 294.7 MOS/KG (273-304)
[2019-10-24 04:25] LABS: ABG Base Excess 6.4 MMOL/L (-2.5-2.5); ABG Oxygen Saturation 94.5 % (95-100); ABG PCO2 45.9 MM HG (35-48); ABG PH 7.448 (7.35-7.45); ABG PO2 77.9 MM HG (80-95); ABG TCO2 32.5 MMOL/L (23-27)
[2019-10-24] MEDS: DOCUSATE SODIUM 100 MG/10 ML UDCUP PO SCH ×2 (08:26→21:01)
[2019-10-24] MEDS: ENOXAPARIN 80 MG/0.8 ML SYRINGE SUBCUT SCH ×2 (08:26→21:01)
[2019-10-24] MEDS: DEXAMETHASONE 10 MG/1 ML VIAL IV SCH (08:26)
[2019-10-24] MEDS: CLOPIDOGREL 75 MG TABLET PO SCH (08:27)
[2019-10-24] MEDS: ASCORBIC ACID 500 MG TABLET PO SCH ×2 (08:27→21:01)
[2019-10-24] MEDS: ASPIRIN CHEW 81 MG TABLET PO SCH (08:27)
[2019-10-24] MEDS: GABAPENTIN 600 MG TABLET PO SCH ×2 (08:27→21:01)
[2019-10-24] MEDS: PANTOPRAZOLE 40 MG VIAL IV SCH (08:27)
[2019-10-24] MEDS: cloNIDine 0.1 MG TABLET PO SCH ×2 (08:27→21:01)
[2019-10-24] MEDS: CETIRIZINE 10 MG TABLET PO SCH (08:27)
[2019-10-24] MEDS: levETIRAcetam 500 MG TABLET PO SCH ×2 (08:27→21:01)
[2019-10-24] MEDS: ZINC GLUCONATE 50 MG TABLET PO SCH ×2 (08:27→21:01)
[2019-10-24] MEDS: FERROUS SULFATE 325 MG TABLET PO SCH ×2 (08:28→21:01)
[2019-10-24] MEDS: amLODIPine 5 MG TABLET PO SCH (08:28)
[2019-10-24] MEDS: AZITHROMYCIN 250 MG TABLET PO SCH (08:28)
[2019-10-24] MEDS: MONTELUKAST 10 MG TABLET PO SCH (08:28)
[2019-10-24] MEDS: MENTHOL/ZINC OXIDE OINT 71 GM JAR TOP SCH ×2 (08:28→21:01)
[2019-10-24] MEDS: BACLOFEN 10 MG TABLET PO SCH ×3 (08:28→21:01)
[2019-10-24 09:21] LABS: Basophils % 0.2 % (0.0-0.8); Eosinophils # 0.3 10*3/uL (0.0-0.87); Eosinophils % 3.1 % (0.00-10.9); Hematocrit 25.3 VOL% (42.0-52.0); Hemoglobin 8.3 GM/DL (14.0-18.0); Immature Granulocytes % 5.8 %; Immature Granulocytes Absolute 0.56 #; Lymphocytes # 1.3 10*3/uL (1.4-4.0); Lymphocytes % 13.6 % (21.2-54.2); Mean Corpuscular HGB Conc 32.8 GM/DL (32-36); Mean Corpuscular Volume 96.9 FL (87-102); Mean Platelet Volume 9.8 FL (9.6-12.0); Monocytes % 6.5 % (1.7-12.7); Neutrophils % 70.8 % (38.7-73.9); Platelet Count 289 T/CUMM (130-400); Red Blood Count 2.61 MC/CUMM (3.8-5.5); Red Cell Distribution Width 13.2 % (9.3-17.3); White Blood Count 9.7 T/CUMM (4-12)
[2019-10-24 09:40] LABS: Eosinophils 3 % (0-10); Hypochromasia 1+; Lymphocytes 19 % (20-55); Microcytosis Slight; Ovalocytes Slight; Platelet Estimate Adequate; Segmented Neutrophils 75 % (50-85); Total Cells Counted 100
[2019-10-24] MEDS ORDERED: FUROSEMIDE 40 MG/4 ML VIAL IV ONE (15:35)
[2019-10-24] MEDS: cefTRIAXone 1,000 MG in SYRINGE 1 EACH IV SCH (17:35)
[2019-10-24] MEDS: ATORVASTATIN 40 MG TABLET PO SCH (21:01)
[2019-10-24] MEDS: INSULIN GLARGINE 100 UNIT/ML SUBCUT SCH (21:01)
[2019-10-25] MEDS: INSULIN LISPRO 100 UNIT/ML SUBCUT SCH ×4 (00:08→18:01)
[2019-10-25 04:56] LABS: Eosinophils # 0.2 10*3/uL (0.0-0.87); Eosinophils % 2.7 % (0.00-10.9); Hematocrit 22.8 VOL% (42.0-52.0); Hemoglobin 7.2 GM/DL (14.0-18.0); Immature Granulocytes % 5.4 %; Immature Granulocytes Absolute 0.46 #; Lymphocytes # 1.3 10*3/uL (1.4-4.0); Lymphocytes % 14.8 % (21.2-54.2); Mean Corpuscular HGB Conc 31.6 GM/DL (32-36); Mean Corpuscular Volume 97.9 FL (87-102); Mean Platelet Volume 10.1 FL (9.6-12.0); Monocytes % 6.4 % (1.7-12.7); Neutrophils % 70.7 % (38.7-73.9); Platelet Count 296 T/CUMM (130-400); Red Blood Count 2.33 MC/CUMM (3.8-5.5); Red Cell Distribution Width 13.2 % (9.3-17.3); White Blood Count 8.5 T/CUMM (4-12)
[2019-10-25 05:14] LABS: Calcium 8.1 MG/DL (8.5-10.1); Osmolality,Calculated 293.7 MOS/KG (273-304)
[2019-10-25 05:18] LABS: ABG Base Excess 8.2 MMOL/L (-2.5-2.5); ABG HCO3 31.9 MMOL/L (20-26); ABG Oxygen Saturation 96.5 % (95-100); ABG PCO2 45.9 MM HG (35-48); ABG PH 7.465 (7.35-7.45); ABG PO2 83.9 MM HG (80-95); ABG TCO2 29.7 MMOL/L (23-27); Allen Test Positive; Pt O2 Delivery Device Ventilator
[2019-10-25 05:43] LABS: Eosinophils 4 % (0-10); Hypochromasia 1+; Lymphocytes 10 % (20-55); Metamyelocytes 2 %; Myelocytes 1 %; Segmented Neutrophils 74 % (50-85); Total Cells Counted 100
[2019-10-25 05:44] LABS: Microcytosis Slight; Ovalocytes Slight; Platelet Estimate Normal
[2019-10-25] MEDS: DEXAMETHASONE 10 MG/1 ML VIAL IV SCH (08:30)
[2019-10-25] MEDS: levETIRAcetam 500 MG TABLET PO SCH ×2 (08:30→20:45)
[2019-10-25] MEDS: ENOXAPARIN 80 MG/0.8 ML SYRINGE SUBCUT SCH ×2 (08:31→20:45)
[2019-10-25] MEDS: DOCUSATE SODIUM 100 MG/10 ML UDCUP PO SCH ×2 (08:31→20:45)
[2019-10-25] MEDS: cloNIDine 0.1 MG TABLET PO SCH ×2 (08:32→20:45)
[2019-10-25] MEDS: AZITHROMYCIN 250 MG TABLET PO SCH (08:32)
[2019-10-25] MEDS: ZINC GLUCONATE 50 MG TABLET PO SCH ×2 (08:32→20:45)
[2019-10-25] MEDS: CETIRIZINE 10 MG TABLET PO SCH (08:32)
[2019-10-25] MEDS: ASPIRIN CHEW 81 MG TABLET PO SCH (08:32)
[2019-10-25] MEDS: PANTOPRAZOLE 40 MG VIAL IV SCH (08:32)
[2019-10-25] MEDS: CLOPIDOGREL 75 MG TABLET PO SCH (08:32)
[2019-10-25] MEDS: ASCORBIC ACID 500 MG TABLET PO SCH ×2 (08:32→20:45)
[2019-10-25] MEDS: MONTELUKAST 10 MG TABLET PO SCH (08:32)
[2019-10-25] MEDS: amLODIPine 5 MG TABLET PO SCH (08:32)
[2019-10-25] MEDS: BACLOFEN 10 MG TABLET PO SCH ×3 (08:32→20:45)
[2019-10-25] MEDS: GABAPENTIN 600 MG TABLET PO SCH ×2 (08:32→20:45)
[2019-10-25] MEDS: FERROUS SULFATE 325 MG TABLET PO SCH ×2 (08:32→20:45)
[2019-10-25] MEDS: MENTHOL/ZINC OXIDE OINT 71 GM JAR TOP SCH ×2 (08:33→20:45)
[2019-10-25] MEDS ORDERED: AMIODARONE INJ 450 MG in DEXTROSE 5% 241 ML IV SCH ×2 (11:30→17:30)
[2019-10-25] MEDS: fentaNYL INJ 2,500 MCG in SODIUM CHLORIDE 0.9% 450 ML IV PRN (11:37)
[2019-10-25] MEDS: cefTRIAXone 1,000 MG in SYRINGE 1 EACH IV SCH (16:45)
[2019-10-25] MEDS: hydrALAZINE 25 MG TABLET PO SCH ×2 (16:45→20:45)
[2019-10-25] MEDS: INSULIN GLARGINE 100 UNIT/ML SUBCUT SCH (20:45)
[2019-10-25] MEDS: ATORVASTATIN 40 MG TABLET PO SCH (20:45)
[2019-10-26] MEDS: INSULIN LISPRO 100 UNIT/ML SUBCUT SCH ×5 (00:29→23:55)
[2019-10-26] MEDS: ACETAMINOPHEN 325 MG TABLET PO PRN ×2 (04:55→18:50)
[2019-10-26 05:19] LABS: Allen Test Positive; Pt O2 Delivery Device Ventilator
[2019-10-26 05:20] LABS: ABG Base Excess 7.8 MMOL/L (-2.5-2.5); ABG HCO3 32.1 MMOL/L (20-26); ABG Oxygen Saturation 87.4 % (95-100); ABG PCO2 44.4 MM HG (35-48); ABG PH 7.477 (7.35-7.45); ABG PO2 54.9 MM HG (80-95); ABG TCO2 33.5 MMOL/L (23-27)
[2019-10-26 05:29] LABS: Basophils % 0.1 % (0.0-0.8); Eosinophils # 0.2 10*3/uL (0.0-0.87); Eosinophils % 2.1 % (0.00-10.9); Hematocrit 25.1 VOL% (42.0-52.0); Hemoglobin 8.2 GM/DL (14.0-18.0); Immature Granulocytes % 2.7 %; Lymphocytes # 1.4 10*3/uL (1.4-4.0); Lymphocytes % 12.5 % (21.2-54.2); Mean Corpuscular HGB Conc 32.7 GM/DL (32-36); Mean Corpuscular Volume 97.7 FL (87-102); Mean Platelet Volume 9.6 FL (9.6-12.0); Monocytes % 5.8 % (1.7-12.7); Neutrophils % 76.8 % (38.7-73.9); Platelet Count 315 T/CUMM (130-400); Red Blood Count 2.57 MC/CUMM (3.8-5.5); Red Cell Distribution Width 12.8 % (9.3-17.3)
[2019-10-26 05:47] LABS: Calcium 8.6 MG/DL (8.5-10.1); Osmolality,Calculated 290.8 MOS/KG (273-304)
[2019-10-26] MEDS: fentaNYL INJ 2,500 MCG in SODIUM CHLORIDE 0.9% 450 ML IV PRN (06:57)
[2019-10-26] MEDS: DOCUSATE SODIUM 100 MG/10 ML UDCUP PO SCH ×2 (08:03→21:10)
[2019-10-26] MEDS: ENOXAPARIN 80 MG/0.8 ML SYRINGE SUBCUT SCH ×2 (08:03→21:10)
[2019-10-26] MEDS: DEXAMETHASONE 10 MG/1 ML VIAL IV SCH (08:04)
[2019-10-26] MEDS: PANTOPRAZOLE 40 MG VIAL IV SCH (08:04)
[2019-10-26] MEDS: hydrALAZINE 25 MG TABLET PO SCH (08:07)
[2019-10-26] MEDS: cloNIDine 0.1 MG TABLET PO SCH (08:07)
[2019-10-26] MEDS: FERROUS SULFATE 325 MG TABLET PO SCH ×2 (08:07→21:10)
[2019-10-26] MEDS: ASPIRIN CHEW 81 MG TABLET PO SCH (08:07)
[2019-10-26] MEDS: BACLOFEN 10 MG TABLET PO SCH ×3 (08:08→21:10)
[2019-10-26] MEDS: levETIRAcetam 500 MG TABLET PO SCH ×2 (08:08→21:10)
[2019-10-26] MEDS: AZITHROMYCIN 250 MG TABLET PO SCH (08:09)
[2019-10-26] MEDS: CETIRIZINE 10 MG TABLET PO SCH (08:09)
[2019-10-26] MEDS: MONTELUKAST 10 MG TABLET PO SCH (08:09)
[2019-10-26] MEDS: CLOPIDOGREL 75 MG TABLET PO SCH (08:09)
[2019-10-26] MEDS: ZINC GLUCONATE 50 MG TABLET PO SCH ×2 (08:09→21:11)
[2019-10-26] MEDS: amLODIPine 5 MG TABLET PO SCH (08:10)
[2019-10-26] MEDS: GABAPENTIN 600 MG TABLET PO SCH ×2 (08:10→21:10)
[2019-10-26] MEDS: ASCORBIC ACID 500 MG TABLET PO SCH ×2 (08:10→21:10)
[2019-10-26] MEDS: MENTHOL/ZINC OXIDE OINT 71 GM JAR TOP SCH ×2 (08:11→21:10)
[2019-10-26] MEDS: INSULIN GLARGINE 100 UNIT/ML SUBCUT SCH (21:10)
[2019-10-26] MEDS: ATORVASTATIN 40 MG TABLET PO SCH (21:10)
[2019-10-27 04:27] LABS: Basophils % 0.1 % (0.0-0.8); Eosinophils # 0.2 10*3/uL (0.0-0.87); Eosinophils % 1.7 % (0.00-10.9); Hematocrit 25.2 VOL% (42.0-52.0); Immature Granulocytes % 2.2 %; Immature Granulocytes Absolute 0.21 #; Lymphocytes # 1.4 10*3/uL (1.4-4.0); Lymphocytes % 14.1 % (21.2-54.2); Mean Corpuscular HGB Conc 31.7 GM/DL (32-36); Mean Corpuscular Volume 98.8 FL (87-102); Mean Platelet Volume 9.7 FL (9.6-12.0); Monocytes % 6.8 % (1.7-12.7); Neutrophils % 75.1 % (38.7-73.9); Platelet Count 293 T/CUMM (130-400); Red Blood Count 2.55 MC/CUMM (3.8-5.5); Red Cell Distribution Width 12.6 % (9.3-17.3); White Blood Count 9.6 T/CUMM (4-12)
[2019-10-27 05:00] LABS: ABG Base Excess 8.4 MMOL/L (-2.5-2.5); ABG HCO3 32.3 MMOL/L (20-26); ABG Oxygen Saturation 99.6 % (95-100); ABG PCO2 47.6 MM HG (35-48); ABG PH 7.454 (7.35-7.45); ABG TCO2 31.2 MMOL/L (23-27)
[2019-10-27 05:09] LABS: Calcium 8.6 MG/DL (8.5-10.1); Osmolality,Calculated 293.6 MOS/KG (273-304)
[2019-10-27] MEDS: INSULIN LISPRO 100 UNIT/ML SUBCUT SCH ×3 (06:21→17:47)
[2019-10-27] MEDS: PANTOPRAZOLE 40 MG VIAL IV SCH (08:04)
[2019-10-27] MEDS: DOCUSATE SODIUM 100 MG/10 ML UDCUP PO SCH ×2 (08:05→20:37)
[2019-10-27] MEDS: cloNIDine 0.1 MG TABLET PO SCH (08:05)
[2019-10-27] MEDS: ENOXAPARIN 80 MG/0.8 ML SYRINGE SUBCUT SCH ×2 (08:05→20:35)
[2019-10-27] MEDS: ASCORBIC ACID 500 MG TABLET PO SCH ×2 (08:09→21:25)
[2019-10-27] MEDS: amLODIPine 5 MG TABLET PO SCH (08:09)
[2019-10-27] MEDS: GABAPENTIN 600 MG TABLET PO SCH ×2 (08:09→20:37)
[2019-10-27] MEDS: levETIRAcetam 500 MG TABLET PO SCH ×2 (08:10→20:38)
[2019-10-27] MEDS: MONTELUKAST 10 MG TABLET PO SCH (08:10)
[2019-10-27] MEDS: ZINC GLUCONATE 50 MG TABLET PO SCH ×2 (08:10→20:38)
[2019-10-27] MEDS: CLOPIDOGREL 75 MG TABLET PO SCH (08:11)
[2019-10-27] MEDS: BACLOFEN 10 MG TABLET PO SCH ×3 (08:11→20:37)
[2019-10-27] MEDS: CETIRIZINE 10 MG TABLET PO SCH (08:11)
[2019-10-27] MEDS: ASPIRIN CHEW 81 MG TABLET PO SCH (08:11)
[2019-10-27] MEDS: FERROUS SULFATE 325 MG TABLET PO SCH ×2 (08:11→21:25)
[2019-10-27] MEDS: DEXAMETHASONE 10 MG/1 ML VIAL IV SCH (08:13)
[2019-10-27] MEDS: MENTHOL/ZINC OXIDE OINT 71 GM JAR TOP SCH ×2 (08:13→21:25)
[2019-10-27] MEDS: INSULIN GLARGINE 100 UNIT/ML SUBCUT SCH (20:36)
[2019-10-27] MEDS: ATORVASTATIN 40 MG TABLET PO SCH (20:38)
[2019-10-28] MEDS: fentaNYL INJ 2,500 MCG in SODIUM CHLORIDE 0.9% 450 ML IV PRN
[2019-10-28 03:17] LABS: ABG Base Excess 8.1 MMOL/L (-2.5-2.5); ABG HCO3 31.7 MMOL/L (20-26); ABG Oxygen Saturation 84.2 % (95-100); ABG PCO2 42.1 MM HG (35-48); ABG PH 7.492 (7.35-7.45); ABG PO2 50.2 MM HG (80-95)
[2019-10-28] MEDS: INSULIN LISPRO 100 UNIT/ML SUBCUT SCH ×4 (03:28→18:27)
[2019-10-28 03:54] LABS: Basophils % 0.2 % (0.0-0.8); Eosinophils # 0.2 10*3/uL (0.0-0.87); Eosinophils % 1.7 % (0.00-10.9); Hematocrit 25.6 VOL% (42.0-52.0); Hemoglobin 7.8 GM/DL (14.0-18.0); Immature Granulocytes % 1.6 %; Lymphocytes # 1.8 10*3/uL (1.4-4.0); Lymphocytes % 14.7 % (21.2-54.2); Mean Corpuscular HGB Conc 30.5 GM/DL (32-36); Mean Platelet Volume 10.2 FL (9.6-12.0); Monocytes % 7.6 % (1.7-12.7); Neutrophils % 74.2 % (38.7-73.9); Platelet Count 348 T/CUMM (130-400); Red Blood Count 2.56 MC/CUMM (3.8-5.5); Red Cell Distribution Width 12.5 % (9.3-17.3); White Blood Count 12.5 T/CUMM (4-12)
[2019-10-28 03:59] LABS: Calcium 8.9 MG/DL (8.5-10.1); Osmolality,Calculated 291.7 MOS/KG (273-304)
[2019-10-28] MEDS: PANTOPRAZOLE 40 MG VIAL IV SCH (08:03)
[2019-10-28] MEDS: cloNIDine 0.1 MG TABLET PO SCH (08:04)
[2019-10-28] MEDS: BACLOFEN 10 MG TABLET PO SCH ×3 (08:04→20:30)
[2019-10-28] MEDS: amLODIPine 5 MG TABLET PO SCH (08:04)
[2019-10-28] MEDS: FERROUS SULFATE 325 MG TABLET PO SCH ×2 (08:04→20:30)
[2019-10-28] MEDS: CETIRIZINE 10 MG TABLET PO SCH (08:04)
[2019-10-28] MEDS: DOCUSATE SODIUM 100 MG/10 ML UDCUP PO SCH ×2 (08:04→20:30)
[2019-10-28] MEDS: MONTELUKAST 10 MG TABLET PO SCH (08:05)
[2019-10-28] MEDS: levETIRAcetam 500 MG TABLET PO SCH ×2 (08:05→20:30)
[2019-10-28] MEDS: ASPIRIN CHEW 81 MG TABLET PO SCH (08:05)
[2019-10-28] MEDS: ZINC GLUCONATE 50 MG TABLET PO SCH ×2 (08:05→20:30)
[2019-10-28] MEDS: ASCORBIC ACID 500 MG TABLET PO SCH ×2 (08:05→20:30)
[2019-10-28] MEDS: ENOXAPARIN 80 MG/0.8 ML SYRINGE SUBCUT SCH ×2 (08:06→20:30)
[2019-10-28] MEDS: GABAPENTIN 600 MG TABLET PO SCH ×2 (08:06→20:30)
[2019-10-28] MEDS: CLOPIDOGREL 75 MG TABLET PO SCH (08:06)
[2019-10-28] MEDS: DEXAMETHASONE 10 MG/1 ML VIAL IV SCH (08:07)
[2019-10-28 09:31] LABS: Apearance,Urine CLEAR (Clear); Bilirubin,Urine Negative (Negative); Blood, Urine Negative (Negative); Glucose,Urine (UA) Negative (Negative); Ketones,Urine 5 mg/dL (Negative); Mucus,Urine Occasional /LPF (Occasional); Nitrite,Urine Negative (Negative); Protein,Urine Negative; RBC,Urine 13 /HPF (0-4); Sperm,Urine Occasional /HPF (Negative); Urine Color Yellow (Yellow); Urine Specific Gravity 1.017 (1.001-1.035); Urine Urobilinogen < 2.0 EU/DL (0.2-1.0); WBC,Urine 3 /HPF (0-6)
[2019-10-28] MEDS: MEROPENEM 500 MG in SODIUM CHLORIDE 0.9% 100 ML IV SCH ×4 (09:49→20:15)
[2019-10-28] MEDS: MENTHOL/ZINC OXIDE OINT 71 GM JAR TOP SCH ×2 (09:53→20:29)
[2019-10-28] MEDS: INSULIN GLARGINE 100 UNIT/ML SUBCUT SCH (20:30)
[2019-10-28] MEDS: ATORVASTATIN 40 MG TABLET PO SCH (20:30)
[2019-10-29] MEDS: INSULIN LISPRO 100 UNIT/ML SUBCUT SCH ×5 (00:06→23:45)
[2019-10-29] MEDS: MEROPENEM 500 MG in SODIUM CHLORIDE 0.9% 100 ML IV SCH ×4 (03:11→19:50)
[2019-10-29 05:15] LABS: ABG Base Excess 5.5 MMOL/L (-2.5-2.5); ABG HCO3 29.9 MMOL/L (20-26); ABG Oxygen Saturation 92.3 % (95-100); ABG PCO2 43.5 MM HG (35-48); ABG PH 7.455 (7.35-7.45); ABG PO2 68.9 MM HG (80-95); ABG TCO2 31.2 MMOL/L (23-27)
[2019-10-29 05:37] LABS: Calcium 8.4 MG/DL (8.5-10.1); Osmolality,Calculated 292.6 MOS/KG (273-304)
[2019-10-29 06:44] LABS: Basophils % 0.2 % (0.0-0.8); Eosinophils # 0.1 10*3/uL (0.0-0.87); Eosinophils % 1.3 % (0.00-10.9); Hematocrit 24.3 VOL% (42.0-52.0); Hemoglobin 7.9 GM/DL (14.0-18.0); Immature Granulocytes % 0.7 %; Immature Granulocytes Absolute 0.07 #; Lymphocytes # 1.3 10*3/uL (1.4-4.0); Lymphocytes % 12.5 % (21.2-54.2); Mean Corpuscular HGB Conc 32.5 GM/DL (32-36); Mean Corpuscular Volume 96.8 FL (87-102); Mean Platelet Volume 10.3 FL (9.6-12.0); Monocytes % 5.9 % (1.7-12.7); Neutrophils % 79.4 % (38.7-73.9); Platelet Count 316 T/CUMM (130-400); Red Blood Count 2.51 MC/CUMM (3.8-5.5); Red Cell Distribution Width 12.5 % (9.3-17.3); White Blood Count 10.2 T/CUMM (4-12)
[2019-10-29] MEDS: ENOXAPARIN 80 MG/0.8 ML SYRINGE SUBCUT SCH ×2 (09:01→20:31)
[2019-10-29] MEDS: PANTOPRAZOLE 40 MG VIAL IV SCH (09:02)
[2019-10-29] MEDS: levETIRAcetam 500 MG TABLET PO SCH ×2 (09:03→20:30)
[2019-10-29] MEDS: ASCORBIC ACID 500 MG TABLET PO SCH ×2 (09:03→20:31)
[2019-10-29] MEDS: MONTELUKAST 10 MG TABLET PO SCH (09:03)
[2019-10-29] MEDS: DOCUSATE SODIUM 100 MG/10 ML UDCUP PO SCH ×2 (09:03→20:30)
[2019-10-29] MEDS: cloNIDine 0.1 MG TABLET PO SCH (09:03)
[2019-10-29] MEDS: GABAPENTIN 600 MG TABLET PO SCH ×2 (09:03→20:31)
[2019-10-29] MEDS: ZINC GLUCONATE 50 MG TABLET PO SCH ×2 (09:03→20:31)
[2019-10-29] MEDS: FERROUS SULFATE 325 MG TABLET PO SCH ×2 (09:04→20:30)
[2019-10-29] MEDS: CETIRIZINE 10 MG TABLET PO SCH (09:04)
[2019-10-29] MEDS: CLOPIDOGREL 75 MG TABLET PO SCH (09:04)
[2019-10-29] MEDS: ASPIRIN CHEW 81 MG TABLET PO SCH (09:04)
[2019-10-29] MEDS: amLODIPine 5 MG TABLET PO SCH (09:04)
[2019-10-29] MEDS: BACLOFEN 10 MG TABLET PO SCH ×3 (09:04→20:31)
[2019-10-29] MEDS: MENTHOL/ZINC OXIDE OINT 71 GM JAR TOP SCH ×2 (09:13→20:30)
[2019-10-29] MEDS ORDERED: POTASSIUM CHLORIDE 20 MEQ/15 ML UDCUP PER TUBE ONE (10:28)
[2019-10-29] MEDS: fentaNYL INJ 2,500 MCG in SODIUM CHLORIDE 0.9% 450 ML IV PRN (18:58)
[2019-10-29] MEDS: INSULIN GLARGINE 100 UNIT/ML SUBCUT SCH (20:31)
[2019-10-29] MEDS: ACETAMINOPHEN 325 MG TABLET PO PRN (20:31)
[2019-10-29] MEDS: ATORVASTATIN 40 MG TABLET PO SCH (20:31)
[2019-10-30] MEDS: MEROPENEM 500 MG in SODIUM CHLORIDE 0.9% 100 ML IV SCH ×4 (01:48→19:42)
[2019-10-30 04:57] LABS: ABG HCO3 28.4 MMOL/L (20-26); ABG Oxygen Saturation 62.5 % (95-100); ABG PCO2 53.5 MM HG (35-48); ABG PH 7.372 (7.35-7.45); ABG TCO2 29.4 MMOL/L (23-27); Allen Test Positive; Pt O2 Delivery Device Ventilator
[2019-10-30 04:59] LABS: ABG PO2 38.9 MM HG (80-95)
[2019-10-30 05:02] LABS: Basophils % 0.2 % (0.0-0.8); Eosinophils # 0.2 10*3/uL (0.0-0.87); Eosinophils % 1.6 % (0.00-10.9); Hematocrit 22.9 VOL% (42.0-52.0); Hemoglobin 7.3 GM/DL (14.0-18.0); Immature Granulocytes % 0.8 %; Immature Granulocytes Absolute 0.08 #; Lymphocytes % 10.1 % (21.2-54.2); Mean Corpuscular HGB Conc 31.9 GM/DL (32-36); Mean Corpuscular Volume 97.9 FL (87-102); Mean Platelet Volume 9.7 FL (9.6-12.0); Monocytes % 5.2 % (1.7-12.7); Neutrophils % 82.1 % (38.7-73.9); Platelet Count 284 T/CUMM (130-400); Red Blood Count 2.34 MC/CUMM (3.8-5.5); Red Cell Distribution Width 12.8 % (9.3-17.3)
[2019-10-30 05:28] LABS: Calcium 8.2 MG/DL (8.5-10.1); Osmolality,Calculated 290.6 MOS/KG (273-304)
[2019-10-30] MEDS: INSULIN LISPRO 100 UNIT/ML SUBCUT SCH ×4 (06:25→23:48)
[2019-10-30 08:14] LABS: ABG Base Excess 4.3 MMOL/L (-2.5-2.5); ABG HCO3 28.6 MMOL/L (20-26); ABG PCO2 41.9 MM HG (35-48); ABG PH 7.452 (7.35-7.45); ABG PO2 57.8 MM HG (80-95); ABG TCO2 29.9 MMOL/L (23-27)
[2019-10-30] MEDS: amLODIPine 5 MG TABLET PO SCH (08:27)
[2019-10-30] MEDS: CETIRIZINE 10 MG TABLET PO SCH (08:27)
[2019-10-30] MEDS: DOCUSATE SODIUM 100 MG/10 ML UDCUP PO SCH ×2 (08:27→20:07)
[2019-10-30] MEDS: cloNIDine 0.1 MG TABLET PO SCH (08:27)
[2019-10-30] MEDS: MONTELUKAST 10 MG TABLET PO SCH (08:27)
[2019-10-30] MEDS: ENOXAPARIN 80 MG/0.8 ML SYRINGE SUBCUT SCH ×2 (08:27→20:07)
[2019-10-30] MEDS: ASPIRIN CHEW 81 MG TABLET PO SCH (08:27)
[2019-10-30] MEDS: PANTOPRAZOLE 40 MG VIAL IV SCH (08:28)
[2019-10-30] MEDS: levETIRAcetam 500 MG TABLET PO SCH ×2 (08:28→20:07)
[2019-10-30] MEDS: FERROUS SULFATE 325 MG TABLET PO SCH ×2 (08:28→20:07)
[2019-10-30] MEDS: CLOPIDOGREL 75 MG TABLET PO SCH (08:28)
[2019-10-30] MEDS: BACLOFEN 10 MG TABLET PO SCH ×3 (08:28→20:07)
[2019-10-30] MEDS: ASCORBIC ACID 500 MG TABLET PO SCH ×2 (08:28→20:07)
[2019-10-30] MEDS: GABAPENTIN 600 MG TABLET PO SCH ×2 (08:28→20:07)
[2019-10-30] MEDS: ZINC GLUCONATE 50 MG TABLET PO SCH ×2 (08:28→20:07)
[2019-10-30] MEDS: MENTHOL/ZINC OXIDE OINT 71 GM JAR TOP SCH ×2 (10:02→20:07)
[2019-10-30] MEDS: ACETAMINOPHEN 325 MG TABLET PO PRN ×2 (12:05→18:40)
[2019-10-30] MEDS ORDERED: SODIUM CHLORIDE 0.9% 1,000 ML IV PRN (13:47)
[2019-10-30] MEDS ORDERED: FUROSEMIDE 40 MG/4 ML VIAL IV PRN (13:47)
[2019-10-30] MEDS: INSULIN GLARGINE 100 UNIT/ML SUBCUT SCH (20:07)
[2019-10-30] MEDS: ATORVASTATIN 40 MG TABLET PO SCH (20:07)
[2019-10-31] MEDS: MEROPENEM 500 MG in SODIUM CHLORIDE 0.9% 100 ML IV SCH ×4 (01:40→20:56)
[2019-10-31] MEDS: ACETAMINOPHEN 325 MG TABLET PO PRN (01:52)
[2019-10-31 04:43] LABS: Allen Test Positive; Pt O2 Delivery Device Ventilator
[2019-10-31 04:48] LABS: ABG Base Excess 3.5 MMOL/L (-2.5-2.5); ABG HCO3 27.5 MMOL/L (20-26); ABG Oxygen Saturation 96.7 % (95-100); ABG PCO2 42.2 MM HG (35-48); ABG PH 7.431 (7.35-7.45); ABG PO2 83.7 MM HG (80-95); ABG TCO2 26.1 MMOL/L (23-27)
[2019-10-31] MEDS: fentaNYL INJ 2,500 MCG in SODIUM CHLORIDE 0.9% 450 ML IV PRN (04:50)
[2019-10-31 05:44] LABS: Basophils % 0.2 % (0.0-0.8); Eosinophils # 0.2 10*3/uL (0.0-0.87); Eosinophils % 1.5 % (0.00-10.9); Hematocrit 30.6 VOL% (42.0-52.0); Immature Granulocytes % 0.9 %; Immature Granulocytes Absolute 0.13 #; Lymphocytes # 1.5 10*3/uL (1.4-4.0); Mean Corpuscular HGB Conc 32.4 GM/DL (32-36); Mean Corpuscular Volume 93.6 FL (87-102); Mean Platelet Volume 9.7 FL (9.6-12.0); Monocytes % 5.5 % (1.7-12.7); Neutrophils % 81.9 % (38.7-73.9); Platelet Count 285 T/CUMM (130-400); Red Cell Distribution Width 15.5 % (9.3-17.3); White Blood Count 15.1 T/CUMM (4-12)
[2019-10-31 05:50] LABS: Hemoglobin 9.9 GM/DL (14.0-18.0); Red Blood Count 3.27 MC/CUMM (3.8-5.5)
[2019-10-31] MEDS ORDERED: METOPROLOL TARTRATE 5 MG/5 ML VIAL IV ONE (06:00)
[2019-10-31] MEDS ORDERED: AMIODARONE INJ 150 MG in DEXTROSE 5% 100 ML IV ONE (06:01)
[2019-10-31 06:12] LABS: Calcium 8.4 MG/DL (8.5-10.1); Osmolality,Calculated 286.3 MOS/KG (273-304)
[2019-10-31] MEDS: INSULIN LISPRO 100 UNIT/ML SUBCUT SCH ×3 (06:27→17:56)
[2019-10-31] MEDS: IBUPROFEN 600 MG TABLET PO PRN (08:05)
[2019-10-31] MEDS: cloNIDine 0.1 MG TABLET PO SCH (08:26)
[2019-10-31] MEDS: CLOPIDOGREL 75 MG TABLET PO SCH (08:26)
[2019-10-31] MEDS: FERROUS SULFATE 325 MG TABLET PO SCH ×2 (08:27→20:43)
[2019-10-31] MEDS: levETIRAcetam 500 MG TABLET PO SCH ×2 (08:31→20:43)
[2019-10-31] MEDS: GABAPENTIN 600 MG TABLET PO SCH ×2 (08:32→20:43)
[2019-10-31] MEDS: ASPIRIN CHEW 81 MG TABLET PO SCH (08:32)
[2019-10-31] MEDS: MONTELUKAST 10 MG TABLET PO SCH (08:32)
[2019-10-31] MEDS: ASCORBIC ACID 500 MG TABLET PO SCH ×2 (08:32→20:43)
[2019-10-31] MEDS: BACLOFEN 10 MG TABLET PO SCH ×3 (08:32→20:43)
[2019-10-31] MEDS: ZINC GLUCONATE 50 MG TABLET PO SCH ×2 (08:32→20:43)
[2019-10-31] MEDS: CETIRIZINE 10 MG TABLET PO SCH (08:33)
[2019-10-31] MEDS: ENOXAPARIN 80 MG/0.8 ML SYRINGE SUBCUT SCH ×2 (08:33→20:43)
[2019-10-31] MEDS: DOCUSATE SODIUM 100 MG/10 ML UDCUP PO SCH ×2 (08:33→20:43)
[2019-10-31] MEDS: MENTHOL/ZINC OXIDE OINT 71 GM JAR TOP SCH ×2 (08:33→20:42)
[2019-10-31] MEDS: PANTOPRAZOLE 40 MG VIAL IV SCH (08:33)
[2019-10-31] MEDS: amLODIPine 5 MG TABLET PO SCH (08:33)
[2019-10-31] MEDS: VANCOMYCIN INJ 1,250 MG in SODIUM CHLORIDE 0.9% 250 ML IV SCH ×2 (10:12→22:30)
[2019-10-31] MEDS ORDERED: FUROSEMIDE 40 MG/4 ML VIAL IV SCH (11:30)
[2019-10-31] MEDS ORDERED: SODIUM CHLORIDE 0.9% 500 ML IV ONE (13:17)
[2019-10-31] MEDS ORDERED: NOREPINEPHRINE 8 MG in SODIUM CHLORIDE 0.9% 242 ML IV PRN (13:17)
[2019-10-31] MEDS: DEXAMETHASONE 4 MG/1 ML VIAL IV SCH (14:07)
[2019-10-31] MEDS: INSULIN GLARGINE 100 UNIT/ML SUBCUT SCH (20:43)
[2019-10-31] MEDS: ATORVASTATIN 40 MG TABLET PO SCH (20:43)
[2019-11-01] MEDS: INSULIN LISPRO 100 UNIT/ML SUBCUT SCH ×4 (00:23→17:05)
[2019-11-01 03:11] LABS: ABG Base Excess 2.3 MMOL/L (-2.5-2.5); ABG HCO3 28.8 MMOL/L (20-26); ABG Oxygen Saturation 92.9 % (95-100); ABG PCO2 54.3 MM HG (35-48); ABG PH 7.342 (7.35-7.45); ABG PO2 70.8 MM HG (80-95); ABG TCO2 30.4 MMOL/L (23-27)
[2019-11-01] MEDS: MEROPENEM 500 MG in SODIUM CHLORIDE 0.9% 100 ML IV SCH ×4 (03:40→20:41)
[2019-11-01 04:16] LABS: Basophils % 0.2 % (0.0-0.8); Eosinophils # 0.1 10*3/uL (0.0-0.87); Eosinophils % 1.1 % (0.00-10.9); Hematocrit 29.4 VOL% (42.0-52.0); Hemoglobin 9.4 GM/DL (14.0-18.0); Immature Granulocytes % 1.7 %; Lymphocytes # 0.9 10*3/uL (1.4-4.0); Lymphocytes % 7.2 % (21.2-54.2); Mean Corpuscular Volume 93.6 FL (87-102); Mean Platelet Volume 9.8 FL (9.6-12.0); Monocytes % 5.7 % (1.7-12.7); Neutrophils % 84.1 % (38.7-73.9); Platelet Count 275 T/CUMM (130-400); Red Blood Count 3.14 MC/CUMM (3.8-5.5); Red Cell Distribution Width 14.9 % (9.3-17.3)
[2019-11-01 05:03] LABS: Calcium 8.3 MG/DL (8.5-10.1)
[2019-11-01 07:47] LABS: Eosinophils 2 % (0-10); Hypochromasia 1+; Lymphocytes 4 % (20-55); Ovalocytes Slight; Platelet Estimate Adequate; Segmented Neutrophils 90 % (50-85); Total Cells Counted 100
[2019-11-01] MEDS: levETIRAcetam 500 MG TABLET PO SCH ×2 (08:16→20:41)
[2019-11-01] MEDS: MONTELUKAST 10 MG TABLET PO SCH (08:16)
[2019-11-01] MEDS: cloNIDine 0.1 MG TABLET PO SCH (08:16)
[2019-11-01] MEDS: ZINC GLUCONATE 50 MG TABLET PO SCH ×2 (08:16→20:41)
[2019-11-01] MEDS: CLOPIDOGREL 75 MG TABLET PO SCH (08:16)
[2019-11-01] MEDS: FERROUS SULFATE 325 MG TABLET PO SCH ×2 (08:16→20:41)
[2019-11-01] MEDS: ASPIRIN CHEW 81 MG TABLET PO SCH (08:17)
[2019-11-01] MEDS: GABAPENTIN 600 MG TABLET PO SCH ×2 (08:17→20:41)
[2019-11-01] MEDS: BACLOFEN 10 MG TABLET PO SCH ×3 (08:17→20:41)
[2019-11-01] MEDS: CETIRIZINE 10 MG TABLET PO SCH (08:17)
[2019-11-01] MEDS: ASCORBIC ACID 500 MG TABLET PO SCH ×2 (08:17→20:41)
[2019-11-01] MEDS: ENOXAPARIN 80 MG/0.8 ML SYRINGE SUBCUT SCH ×2 (08:18→20:41)
[2019-11-01] MEDS: DOCUSATE SODIUM 100 MG/10 ML UDCUP PO SCH ×2 (08:18→20:41)
[2019-11-01] MEDS: PANTOPRAZOLE 40 MG VIAL IV SCH (08:19)
[2019-11-01] MEDS ORDERED: LACTULOSE 20 GM/30 ML UDCUP PO PRN (08:52)
[2019-11-01] MEDS ORDERED: LACTULOSE 20 GM/30 ML UDCUP PO ONE (08:56)
[2019-11-01] MEDS: MENTHOL/ZINC OXIDE OINT 71 GM JAR TOP SCH ×2 (09:30→20:41)
[2019-11-01] MEDS: ACETAMINOPHEN 325 MG TABLET PO PRN (11:03)
[2019-11-01] MEDS: VANCOMYCIN INJ 1,250 MG in SODIUM CHLORIDE 0.9% 250 ML IV SCH (11:39)
[2019-11-01] MEDS: DEXAMETHASONE 4 MG/1 ML VIAL IV SCH (13:33)
[2019-11-01] MEDS: IBUPROFEN 600 MG TABLET PO PRN (15:26)
[2019-11-01] MEDS: ATORVASTATIN 40 MG TABLET PO SCH (20:41)
[2019-11-01] MEDS: INSULIN GLARGINE 100 UNIT/ML SUBCUT SCH (20:41)
[2019-11-01] MEDS: fentaNYL INJ 2,500 MCG in SODIUM CHLORIDE 0.9% 450 ML IV PRN (21:40)
[2019-11-02] MEDS: INSULIN LISPRO 100 UNIT/ML SUBCUT SCH ×4 (00:29→17:29)
[2019-11-02] MEDS: VANCOMYCIN INJ 1,250 MG in SODIUM CHLORIDE 0.9% 250 ML IV SCH (00:29)
[2019-11-02] MEDS: MEROPENEM 500 MG in SODIUM CHLORIDE 0.9% 100 ML IV SCH ×4 (02:59→20:43)
[2019-11-02 03:42] LABS: ABG Base Excess 2.1 MMOL/L (-2.5-2.5); ABG HCO3 27.6 MMOL/L (20-26); ABG Oxygen Saturation 96.3 % (95-100); ABG PCO2 48.1 MM HG (35-48); ABG PH 7.377 (7.35-7.45); ABG TCO2 29.1 MMOL/L (23-27); Allen Test Positive; Pt O2 Delivery Device Ventilator
[2019-11-02 04:55] LABS: Basophils % 0.3 % (0.0-0.8); Eosinophils # 0.1 10*3/uL (0.0-0.87); Eosinophils % 1.6 % (0.00-10.9); Hematocrit 25.7 VOL% (42.0-52.0); Hemoglobin 8.1 GM/DL (14.0-18.0); Immature Granulocytes % 0.7 %; Immature Granulocytes Absolute 0.05 #; Lymphocytes # 0.8 10*3/uL (1.4-4.0); Lymphocytes % 10.1 % (21.2-54.2); Mean Corpuscular HGB Conc 31.5 GM/DL (32-36); Mean Corpuscular Volume 95.9 FL (87-102); Mean Platelet Volume 9.8 FL (9.6-12.0); Monocytes % 8.6 % (1.7-12.7); Neutrophils % 78.7 % (38.7-73.9); Platelet Count 271 T/CUMM (130-400); Red Blood Count 2.68 MC/CUMM (3.8-5.5); Red Cell Distribution Width 14.6 % (9.3-17.3); White Blood Count 7.6 T/CUMM (4-12)
[2019-11-02 05:00] LABS: Calcium 8.6 MG/DL (8.5-10.1); Osmolality,Calculated 285.8 MOS/KG (273-304)
[2019-11-02 05:25] LABS: Hypochromasia 1+
[2019-11-02 05:26] LABS: Microcytosis Slight; Ovalocytes Slight; Platelet Estimate Normal; Polychromasia Slight
[2019-11-02] MEDS: ENOXAPARIN 80 MG/0.8 ML SYRINGE SUBCUT SCH ×2 (08:39→20:43)
[2019-11-02] MEDS: CETIRIZINE 10 MG TABLET PO SCH (08:40)
[2019-11-02] MEDS: CLOPIDOGREL 75 MG TABLET PO SCH (08:40)
[2019-11-02] MEDS: DOCUSATE SODIUM 100 MG/10 ML UDCUP PO SCH ×2 (08:40→20:44)
[2019-11-02] MEDS: levETIRAcetam 500 MG TABLET PO SCH ×2 (08:40→20:42)
[2019-11-02] MEDS: PANTOPRAZOLE 40 MG VIAL IV SCH (08:40)
[2019-11-02] MEDS: MENTHOL/ZINC OXIDE OINT 71 GM JAR TOP SCH ×2 (08:40→20:44)
[2019-11-02] MEDS: ASPIRIN CHEW 81 MG TABLET PO SCH (08:40)
[2019-11-02] MEDS: ZINC GLUCONATE 50 MG TABLET PO SCH ×2 (08:41→20:44)
[2019-11-02] MEDS: MONTELUKAST 10 MG TABLET PO SCH (08:41)
[2019-11-02] MEDS: ASCORBIC ACID 500 MG TABLET PO SCH ×2 (08:41→20:44)
[2019-11-02] MEDS: FERROUS SULFATE 325 MG TABLET PO SCH ×2 (08:41→20:44)
[2019-11-02] MEDS: GABAPENTIN 600 MG TABLET PO SCH ×2 (08:41→20:44)
[2019-11-02] MEDS: cloNIDine 0.1 MG TABLET PO SCH (08:43)
[2019-11-02] MEDS: BACLOFEN 10 MG TABLET PO SCH ×3 (08:43→20:44)
[2019-11-02] MEDS ORDERED: FUROSEMIDE 40 MG/4 ML VIAL IV ONE (09:38)
[2019-11-02] MEDS ORDERED: MIDAZOLAM 2 MG/2 ML VIAL IV ONE (10:50)
[2019-11-02 12:01] LABS: ABG Base Excess -0.7 MMOL/L (-2.5-2.5); ABG HCO3 23.6 MMOL/L (20-26); ABG Oxygen Saturation 85.5 % (95-100); ABG PCO2 54.3 MM HG (35-48); ABG PH 7.294 (7.35-7.45); ABG TCO2 24.7 MMOL/L (23-27)
[2019-11-02] MEDS: ROCURONIUM 500 MG in SODIUM CHLORIDE 0.9% 500 ML IV PRN ×2 (12:05→23:23)
[2019-11-02] MEDS: FLUCONAZOLE INJ 100 MG in IV BAG 1 EACH IV SCH (13:34)
[2019-11-02] MEDS: DEXAMETHASONE 4 MG/1 ML VIAL IV SCH (15:27)
[2019-11-02] MEDS: MINERAL OIL/PETROLATUM OPH OINT 3.5 GM TUBE BOTH EYES SCH ×3 (17:25→21:49)
[2019-11-02] MEDS ORDERED: VANCOMYCIN INJ 1,250 MG in SODIUM CHLORIDE 0.9% 250 ML IV SCH (18:00)
[2019-11-02] MEDS: SENNA 8.6 MG TABLET PO SCH (20:44)
[2019-11-02] MEDS: ATORVASTATIN 40 MG TABLET PO SCH (20:44)
[2019-11-02] MEDS ORDERED: INSULIN GLARGINE 100 UNIT/ML SUBCUT SCH (21:00)
[2019-11-02] MEDS ORDERED: NOREPINEPHRINE 8 MG in SODIUM CHLORIDE 0.9% 242 ML IV PRN (22:15)
[2019-11-03] MEDS: INSULIN LISPRO 100 UNIT/ML SUBCUT SCH ×4 (00:38→17:50)
[2019-11-03] MEDS: MEROPENEM 500 MG in SODIUM CHLORIDE 0.9% 100 ML IV SCH ×3 (02:47→18:01)
[2019-11-03] MEDS: MINERAL OIL/PETROLATUM OPH OINT 3.5 GM TUBE BOTH EYES SCH ×5 (03:51→18:25)
[2019-11-03 05:03] LABS: ABG Base Excess 0.5 MMOL/L (-2.5-2.5); ABG HCO3 24.9 MMOL/L (20-26); ABG Oxygen Saturation 98.7 % (95-100); ABG PCO2 57.4 MM HG (35-48); ABG PH 7.298 (7.35-7.45); ABG TCO2 25.6 MMOL/L (23-27); Allen Test Positive; Pt O2 Delivery Device Ventilator
[2019-11-03 05:17] LABS: Basophils % 0.4 % (0.0-0.8); Eosinophils # 0.1 10*3/uL (0.0-0.87); Eosinophils % 1.6 % (0.00-10.9); Hematocrit 28.4 VOL% (42.0-52.0); Hemoglobin 8.7 GM/DL (14.0-18.0); Immature Granulocytes % 0.8 %; Immature Granulocytes Absolute 0.06 #; Lymphocytes % 14.1 % (21.2-54.2); Mean Corpuscular HGB Conc 30.6 GM/DL (32-36); Mean Corpuscular Volume 95.9 FL (87-102); Mean Platelet Volume 9.7 FL (9.6-12.0); Monocytes % 10.7 % (1.7-12.7); Neutrophils % 72.4 % (38.7-73.9); Platelet Count 300 T/CUMM (130-400); Red Blood Count 2.96 MC/CUMM (3.8-5.5); Red Cell Distribution Width 14.3 % (9.3-17.3); White Blood Count 7.4 T/CUMM (4-12)
[2019-11-03 05:36] LABS: Calcium 8.7 MG/DL (8.5-10.1)
[2019-11-03] MEDS: ENOXAPARIN 80 MG/0.8 ML SYRINGE SUBCUT SCH ×2 (08:32→20:32)
[2019-11-03] MEDS: DOCUSATE SODIUM 100 MG/10 ML UDCUP PO SCH ×2 (08:32→20:32)
[2019-11-03] MEDS: FERROUS SULFATE 325 MG TABLET PO SCH ×2 (08:33→20:34)
[2019-11-03] MEDS: ASCORBIC ACID 500 MG TABLET PO SCH ×2 (08:33→20:33)
[2019-11-03] MEDS: CLOPIDOGREL 75 MG TABLET PO SCH (08:33)
[2019-11-03] MEDS: ZINC GLUCONATE 50 MG TABLET PO SCH ×2 (08:33→20:33)
[2019-11-03] MEDS: PANTOPRAZOLE 40 MG VIAL IV SCH (08:33)
[2019-11-03] MEDS: levETIRAcetam 500 MG TABLET PO SCH ×2 (08:33→20:32)
[2019-11-03] MEDS: BACLOFEN 10 MG TABLET PO SCH ×3 (08:33→20:33)
[2019-11-03] MEDS: MONTELUKAST 10 MG TABLET PO SCH (08:33)
[2019-11-03] MEDS: cloNIDine 0.1 MG TABLET PO SCH (08:33)
[2019-11-03] MEDS: SENNA 8.6 MG TABLET PO SCH ×2 (08:33→20:33)
[2019-11-03] MEDS: CETIRIZINE 10 MG TABLET PO SCH (08:33)
[2019-11-03] MEDS: GABAPENTIN 600 MG TABLET PO SCH ×2 (08:33→20:34)
[2019-11-03] MEDS: ASPIRIN CHEW 81 MG TABLET PO SCH (08:34)
[2019-11-03] MEDS: MENTHOL/ZINC OXIDE OINT 71 GM JAR TOP SCH ×2 (08:34→20:34)
[2019-11-03] MEDS ORDERED: FUROSEMIDE 40 MG/4 ML VIAL IV ONE (08:48)
[2019-11-03 11:39] LABS: ABG Base Excess 1.8 MMOL/L (-2.5-2.5); ABG HCO3 27.6 MMOL/L (20-26); ABG Oxygen Saturation 89.1 % (95-100); ABG PCO2 49.7 MM HG (35-48); ABG PH 7.362 (7.35-7.45); ABG PO2 57.7 MM HG (80-95); ABG TCO2 29.1 MMOL/L (23-27); Allen Test Positive; Pt O2 Delivery Device Ventilator
[2019-11-03] MEDS: FLUCONAZOLE INJ 100 MG in IV BAG 1 EACH IV SCH (12:50)
[2019-11-03] MEDS: DEXAMETHASONE 4 MG/1 ML VIAL IV SCH (16:15)
[2019-11-03] MEDS: fentaNYL INJ 2,500 MCG in SODIUM CHLORIDE 0.9% 450 ML IV PRN (20:25)
[2019-11-03] MEDS: ATORVASTATIN 40 MG TABLET PO SCH (20:34)
[2019-11-03] MEDS: ROCURONIUM 500 MG in SODIUM CHLORIDE 0.9% 500 ML IV PRN (21:01)
[2019-11-04] MEDS: MEROPENEM 500 MG in SODIUM CHLORIDE 0.9% 100 ML IV SCH ×3 (00:23→17:57)
[2019-11-04] MEDS: INSULIN LISPRO 100 UNIT/ML SUBCUT SCH ×4 (00:23→17:57)
[2019-11-04] MEDS: MINERAL OIL/PETROLATUM OPH OINT 3.5 GM TUBE BOTH EYES SCH ×7 (00:23→21:53)
[2019-11-04 04:27] LABS: Basophils % 0.4 % (0.0-0.8); Eosinophils # 0.1 10*3/uL (0.0-0.87); Hematocrit 23.8 VOL% (42.0-52.0); Hemoglobin 7.3 GM/DL (14.0-18.0); Immature Granulocytes % 0.9 %; Immature Granulocytes Absolute 0.05 #; Lymphocytes # 0.9 10*3/uL (1.4-4.0); Lymphocytes % 15.9 % (21.2-54.2); Mean Corpuscular HGB Conc 30.7 GM/DL (32-36); Mean Corpuscular Volume 96.7 FL (87-102); Mean Platelet Volume 9.9 FL (9.6-12.0); Monocytes % 10.9 % (1.7-12.7); Neutrophils % 69.9 % (38.7-73.9); Platelet Count 264 T/CUMM (130-400); Red Blood Count 2.46 MC/CUMM (3.8-5.5); Red Cell Distribution Width 14.1 % (9.3-17.3); White Blood Count 5.6 T/CUMM (4-12)
[2019-11-04 04:37] LABS: Calcium 8.1 MG/DL (8.5-10.1); Osmolality,Calculated 292.8 MOS/KG (273-304)
[2019-11-04 04:40] LABS: ABG Base Excess 3.3 MMOL/L (-2.5-2.5); ABG HCO3 27.3 MMOL/L (20-26); ABG PCO2 53.9 MM HG (35-48); ABG PH 7.348 (7.35-7.45); ABG PO2 91.7 MM HG (80-95); ABG TCO2 27.9 MMOL/L (23-27); Allen Test Positive; Pt O2 Delivery Device Ventilator
[2019-11-04 05:05] LABS: Platelet Estimate Adequate
[2019-11-04 05:06] LABS: Hypochromasia 1+; Microcytosis 1+
[2019-11-04] MEDS: ROCURONIUM 500 MG in SODIUM CHLORIDE 0.9% 500 ML IV PRN ×2 (07:34→18:30)
[2019-11-04] MEDS: fentaNYL INJ 2,500 MCG in SODIUM CHLORIDE 0.9% 450 ML IV PRN ×2 (08:05→19:58)
[2019-11-04] MEDS: DOCUSATE SODIUM 100 MG/10 ML UDCUP PO SCH ×2 (08:40→20:43)
[2019-11-04] MEDS: ENOXAPARIN 80 MG/0.8 ML SYRINGE SUBCUT SCH ×2 (08:40→20:43)
[2019-11-04] MEDS: CETIRIZINE 10 MG TABLET PO SCH (08:41)
[2019-11-04] MEDS: levETIRAcetam 500 MG TABLET PO SCH ×2 (08:41→20:44)
[2019-11-04] MEDS: ASCORBIC ACID 500 MG TABLET PO SCH ×2 (08:41→20:43)
[2019-11-04] MEDS: FERROUS SULFATE 325 MG TABLET PO SCH ×2 (08:41→20:44)
[2019-11-04] MEDS: PANTOPRAZOLE 40 MG VIAL IV SCH (08:41)
[2019-11-04] MEDS: SENNA 8.6 MG TABLET PO SCH ×2 (08:41→20:44)
[2019-11-04] MEDS: ZINC GLUCONATE 50 MG TABLET PO SCH ×2 (08:41→20:44)
[2019-11-04] MEDS: MONTELUKAST 10 MG TABLET PO SCH (08:41)
[2019-11-04] MEDS: BACLOFEN 10 MG TABLET PO SCH ×2 (08:41→20:44)
[2019-11-04] MEDS: GABAPENTIN 600 MG TABLET PO SCH ×2 (08:42→20:44)
[2019-11-04] MEDS: ASPIRIN CHEW 81 MG TABLET PO SCH (08:42)
[2019-11-04] MEDS: CLOPIDOGREL 75 MG TABLET PO SCH (08:42)
[2019-11-04] MEDS: MENTHOL/ZINC OXIDE OINT 71 GM JAR TOP SCH ×2 (08:42→20:44)
[2019-11-04] MEDS ORDERED: SODIUM CHLORIDE 0.9% 1,000 ML IV PRN (08:57)
[2019-11-04] MEDS ORDERED: FUROSEMIDE 40 MG/4 ML VIAL IV PRN ×2 (08:57→08:58)
[2019-11-04] MEDS: FLUCONAZOLE INJ 100 MG in IV BAG 1 EACH IV SCH (10:50)
[2019-11-04] MEDS: DEXAMETHASONE 4 MG/1 ML VIAL IV SCH (17:55)
[2019-11-04] MEDS: ATORVASTATIN 40 MG TABLET PO SCH (20:44)
[2019-11-05] MEDS: INSULIN LISPRO 100 UNIT/ML SUBCUT SCH ×4 (00:10→18:21)
[2019-11-05] MEDS: MINERAL OIL/PETROLATUM OPH OINT 3.5 GM TUBE BOTH EYES SCH ×6 (01:55→21:50)
[2019-11-05 04:36] LABS: Basophils % 0.6 % (0.0-0.8); Eosinophils # 0.1 10*3/uL (0.0-0.87); Eosinophils % 2.1 % (0.00-10.9); Hemoglobin 8.4 GM/DL (14.0-18.0); Immature Granulocytes % 1.6 %; Immature Granulocytes Absolute 0.11 #; Lymphocytes % 14.3 % (21.2-54.2); Mean Corpuscular HGB Conc 31.1 GM/DL (32-36); Mean Corpuscular Volume 97.5 FL (87-102); Mean Platelet Volume 10.1 FL (9.6-12.0); Monocytes % 10.6 % (1.7-12.7); Neutrophils % 70.8 % (38.7-73.9); Platelet Count 280 T/CUMM (130-400); Red Blood Count 2.77 MC/CUMM (3.8-5.5); Red Cell Distribution Width 14.2 % (9.3-17.3); White Blood Count 6.8 T/CUMM (4-12)
[2019-11-05 04:54] LABS: Calcium 8.4 MG/DL (8.5-10.1); Osmolality,Calculated 297.6 MOS/KG (273-304)
[2019-11-05 05:12] LABS: ABG Base Excess 1.1 MMOL/L (-2.5-2.5); ABG HCO3 27.9 MMOL/L (20-26); ABG Oxygen Saturation 91.4 % (95-100); ABG PCO2 55.7 MM HG (35-48); ABG PH 7.318 (7.35-7.45); ABG PO2 65.8 MM HG (80-95); ABG TCO2 29.6 MMOL/L (23-27); Allen Test Positive; Pt O2 Delivery Device Ventilator
[2019-11-05] MEDS: ROCURONIUM 500 MG in SODIUM CHLORIDE 0.9% 500 ML IV PRN (05:31)
[2019-11-05] MEDS: DOCUSATE SODIUM 100 MG/10 ML UDCUP PO SCH ×2 (08:02→20:29)
[2019-11-05] MEDS: ENOXAPARIN 80 MG/0.8 ML SYRINGE SUBCUT SCH ×2 (08:02→20:28)
[2019-11-05] MEDS: SENNA 8.6 MG TABLET PO SCH ×2 (08:02→20:28)
[2019-11-05] MEDS: ASPIRIN CHEW 81 MG TABLET PO SCH (08:03)
[2019-11-05] MEDS: BACLOFEN 10 MG TABLET PO SCH ×2 (08:03→20:28)
[2019-11-05] MEDS: CETIRIZINE 10 MG TABLET PO SCH (08:03)
[2019-11-05] MEDS: FERROUS SULFATE 325 MG TABLET PO SCH ×2 (08:04→20:28)
[2019-11-05] MEDS: levETIRAcetam 500 MG TABLET PO SCH ×2 (08:04→20:29)
[2019-11-05] MEDS: ASCORBIC ACID 500 MG TABLET PO SCH ×2 (08:04→20:28)
[2019-11-05] MEDS: CLOPIDOGREL 75 MG TABLET PO SCH (08:04)
[2019-11-05] MEDS: ZINC GLUCONATE 50 MG TABLET PO SCH ×2 (08:04→20:28)
[2019-11-05] MEDS: GABAPENTIN 600 MG TABLET PO SCH ×2 (08:05→20:29)
[2019-11-05] MEDS: MONTELUKAST 10 MG TABLET PO SCH (08:05)
[2019-11-05] MEDS: PANTOPRAZOLE 40 MG VIAL IV SCH (08:29)
[2019-11-05] MEDS: fentaNYL INJ 2,500 MCG in SODIUM CHLORIDE 0.9% 450 ML IV PRN ×2 (08:30→22:18)
[2019-11-05] MEDS: MENTHOL/ZINC OXIDE OINT 71 GM JAR TOP SCH ×2 (08:31→20:29)
[2019-11-05] MEDS: FLUCONAZOLE INJ 100 MG in IV BAG 1 EACH IV SCH (10:08)
[2019-11-05] MEDS: DEXAMETHASONE 4 MG/1 ML VIAL IV SCH (14:04)
[2019-11-05] MEDS: ROCURONIUM 1,000 MG in SODIUM CHLORIDE 0.9% 175 ML IV PRN (15:00)
[2019-11-05] MEDS ORDERED: BISACODYL 10 MG SUPP RECTAL PRN (15:45)
[2019-11-05] MEDS: ACETAMINOPHEN 325 MG TABLET PO PRN (16:45)
[2019-11-05] MEDS: ATORVASTATIN 40 MG TABLET PO SCH (20:28)
[2019-11-05] MEDS: NOREPINEPHRINE 8 MG in SODIUM CHLORIDE 0.9% 242 ML IV PRN (23:53)
[2019-11-06] MEDS: INSULIN LISPRO 100 UNIT/ML SUBCUT SCH ×4 (00:34→18:20)
[2019-11-06] MEDS: MINERAL OIL/PETROLATUM OPH OINT 3.5 GM TUBE BOTH EYES SCH ×6 (02:50→21:50)
[2019-11-06 04:05] LABS: ABG Base Excess -1.4 MMOL/L (-2.5-2.5); ABG HCO3 23.2 MMOL/L (20-26); ABG Oxygen Saturation 93.6 % (95-100); ABG PO2 78.5 MM HG (80-95); ABG TCO2 26.4 MMOL/L (23-27); Allen Test Positive; Pt O2 Delivery Device Ventilator
[2019-11-06 04:34] LABS: ABG PCO2 71.1 MM HG (35-48); ABG PH 7.204 (7.35-7.45)
[2019-11-06 05:05] LABS: Basophils # 0.1 10*3/uL (0.0-0.2); Basophils % 0.4 % (0.0-0.8); Eosinophils # 0.2 10*3/uL (0.0-0.87); Eosinophils % 2.1 % (0.00-10.9); Hematocrit 32.4 VOL% (42.0-52.0); Hemoglobin 9.6 GM/DL (14.0-18.0); Immature Granulocytes % 1.4 %; Immature Granulocytes Absolute 0.16 #; Lymphocytes # 1.4 10*3/uL (1.4-4.0); Lymphocytes % 12.2 % (21.2-54.2); Mean Corpuscular HGB Conc 29.6 GM/DL (32-36); Mean Corpuscular Volume 99.4 FL (87-102); Mean Platelet Volume 10.2 FL (9.6-12.0); Monocytes % 13.4 % (1.7-12.7); Neutrophils % 70.5 % (38.7-73.9); Platelet Count 367 T/CUMM (130-400); Red Blood Count 3.26 MC/CUMM (3.8-5.5); Red Cell Distribution Width 14.7 % (9.3-17.3); White Blood Count 11.2 T/CUMM (4-12)
[2019-11-06 05:20] LABS: Calcium 8.4 MG/DL (8.5-10.1)
[2019-11-06] MEDS: ZINC GLUCONATE 50 MG TABLET PO SCH ×2 (08:05→20:53)
[2019-11-06] MEDS: CETIRIZINE 10 MG TABLET PO SCH (08:06)
[2019-11-06] MEDS: BACLOFEN 10 MG TABLET PO SCH ×2 (08:06→20:54)
[2019-11-06] MEDS: ASPIRIN CHEW 81 MG TABLET PO SCH (08:06)
[2019-11-06] MEDS: levETIRAcetam 500 MG TABLET PO SCH ×2 (08:06→20:53)
[2019-11-06] MEDS: GABAPENTIN 600 MG TABLET PO SCH ×2 (08:06→20:53)
[2019-11-06] MEDS: CLOPIDOGREL 75 MG TABLET PO SCH (08:06)
[2019-11-06] MEDS: MONTELUKAST 10 MG TABLET PO SCH (08:06)
[2019-11-06] MEDS: FERROUS SULFATE 325 MG TABLET PO SCH ×2 (08:07→20:53)
[2019-11-06] MEDS: SENNA 8.6 MG TABLET PO SCH ×2 (08:07→20:54)
[2019-11-06] MEDS: ENOXAPARIN 80 MG/0.8 ML SYRINGE SUBCUT SCH ×2 (08:08→20:53)
[2019-11-06] MEDS: DOCUSATE SODIUM 100 MG/10 ML UDCUP PO SCH ×2 (08:08→20:53)
[2019-11-06] MEDS: PANTOPRAZOLE 40 MG VIAL IV SCH (08:08)
[2019-11-06] MEDS: MENTHOL/ZINC OXIDE OINT 71 GM JAR TOP SCH ×2 (08:14→20:54)
[2019-11-06] MEDS: ASCORBIC ACID 500 MG TABLET PO SCH ×2 (08:33→20:53)
[2019-11-06] MEDS: ROCURONIUM 1,000 MG in SODIUM CHLORIDE 0.9% 175 ML IV PRN (09:00)
[2019-11-06] MEDS: fentaNYL INJ 2,500 MCG in SODIUM CHLORIDE 0.9% 450 ML IV PRN ×2 (10:21→22:34)
[2019-11-06] MEDS: FLUCONAZOLE INJ 100 MG in IV BAG 1 EACH IV SCH (10:58)
[2019-11-06] MEDS: DEXAMETHASONE 4 MG/1 ML VIAL IV SCH (14:00)
[2019-11-06] MEDS: ACETAMINOPHEN 325 MG TABLET PO PRN (14:45)
[2019-11-06] MEDS: NOREPINEPHRINE 8 MG in SODIUM CHLORIDE 0.9% 242 ML IV PRN (19:20)
[2019-11-06] MEDS: ATORVASTATIN 40 MG TABLET PO SCH (20:54)
[2019-11-07] MEDS: ROCURONIUM 1,000 MG in SODIUM CHLORIDE 0.9% 175 ML IV PRN (01:02)
[2019-11-07] MEDS: INSULIN LISPRO 100 UNIT/ML SUBCUT SCH ×4 (03:35→17:20)
[2019-11-07] MEDS: MINERAL OIL/PETROLATUM OPH OINT 3.5 GM TUBE BOTH EYES SCH ×6 (03:36→21:32)
[2019-11-07 03:55] LABS: ABG Base Excess -3.3 MMOL/L (-2.5-2.5); ABG HCO3 21.4 MMOL/L (20-26); ABG Oxygen Saturation 83.9 % (95-100); ABG PCO2 63.3 MM HG (35-48); ABG PH 7.213 (7.35-7.45); ABG PO2 56.4 MM HG (80-95); ABG TCO2 23.9 MMOL/L (23-27)
[2019-11-07 04:55] LABS: Basophils % 0.4 % (0.0-0.8); Eosinophils # 0.1 10*3/uL (0.0-0.87); Eosinophils % 1.2 % (0.00-10.9); Hematocrit 31.8 VOL% (42.0-52.0); Hemoglobin 9.6 GM/DL (14.0-18.0); Immature Granulocytes % 1.9 %; Lymphocytes # 1.3 10*3/uL (1.4-4.0); Lymphocytes % 12.1 % (21.2-54.2); Mean Corpuscular HGB Conc 30.2 GM/DL (32-36); Mean Corpuscular Volume 98.5 FL (87-102); Monocytes % 11.5 % (1.7-12.7); Neutrophils % 72.9 % (38.7-73.9); Platelet Count 376 T/CUMM (130-400); Red Blood Count 3.23 MC/CUMM (3.8-5.5); Red Cell Distribution Width 14.7 % (9.3-17.3); White Blood Count 10.4 T/CUMM (4-12)
[2019-11-07 05:10] LABS: Calcium 8.9 MG/DL (8.5-10.1); Osmolality,Calculated 295.1 MOS/KG (273-304)
[2019-11-07] MEDS: NOREPINEPHRINE 8 MG in SODIUM CHLORIDE 0.9% 242 ML IV PRN ×3 (07:02→18:45)
[2019-11-07] MEDS: DOCUSATE SODIUM 100 MG/10 ML UDCUP PO SCH ×2 (09:41→20:19)
[2019-11-07] MEDS: ENOXAPARIN 80 MG/0.8 ML SYRINGE SUBCUT SCH ×2 (09:42→20:18)
[2019-11-07] MEDS: PANTOPRAZOLE 40 MG VIAL IV SCH (09:42)
[2019-11-07] MEDS: MONTELUKAST 10 MG TABLET PO SCH (09:42)
[2019-11-07] MEDS: ASCORBIC ACID 500 MG TABLET PO SCH ×2 (09:42→20:19)
[2019-11-07] MEDS: ASPIRIN CHEW 81 MG TABLET PO SCH (09:42)
[2019-11-07] MEDS: levETIRAcetam 500 MG TABLET PO SCH ×2 (09:42→20:19)
[2019-11-07] MEDS: MENTHOL/ZINC OXIDE OINT 71 GM JAR TOP SCH ×2 (09:43→20:19)
[2019-11-07] MEDS: SENNA 8.6 MG TABLET PO SCH ×2 (09:43→20:20)
[2019-11-07] MEDS: FERROUS SULFATE 325 MG TABLET PO SCH ×2 (09:43→20:19)
[2019-11-07] MEDS: BACLOFEN 10 MG TABLET PO SCH ×2 (09:43→20:19)
[2019-11-07] MEDS: ZINC GLUCONATE 50 MG TABLET PO SCH ×2 (09:43→20:19)
[2019-11-07] MEDS: CETIRIZINE 10 MG TABLET PO SCH (09:43)
[2019-11-07] MEDS: CLOPIDOGREL 75 MG TABLET PO SCH (09:43)
[2019-11-07] MEDS: GABAPENTIN 600 MG TABLET PO SCH ×2 (09:43→20:20)
[2019-11-07] MEDS: fentaNYL INJ 2,500 MCG in SODIUM CHLORIDE 0.9% 450 ML IV PRN ×2 (10:40→21:52)
[2019-11-07] MEDS: FLUCONAZOLE INJ 100 MG in IV BAG 1 EACH IV SCH (14:33)
[2019-11-07] MEDS: DEXAMETHASONE 4 MG/1 ML VIAL IV SCH (15:12)
[2019-11-07] MEDS: ATORVASTATIN 40 MG TABLET PO SCH (20:19)
[2019-11-08] MEDS: INSULIN LISPRO 100 UNIT/ML SUBCUT SCH ×4 (00:50→18:00)
[2019-11-08] MEDS: MINERAL OIL/PETROLATUM OPH OINT 3.5 GM TUBE BOTH EYES SCH ×6 (01:36→22:07)
[2019-11-08] MEDS: NOREPINEPHRINE 8 MG in SODIUM CHLORIDE 0.9% 242 ML IV PRN ×3 (04:30→22:30)
[2019-11-08 04:54] LABS: Basophils % 0.5 % (0.0-0.8); Eosinophils % 0.1 % (0.00-10.9); Hematocrit 28.7 VOL% (42.0-52.0); Hemoglobin 8.7 GM/DL (14.0-18.0); Immature Granulocytes % 4.7 %; Immature Granulocytes Absolute 0.37 #; Lymphocytes % 13.1 % (21.2-54.2); Mean Corpuscular HGB Conc 30.3 GM/DL (32-36); Mean Platelet Volume 10.5 FL (9.6-12.0); Monocytes % 10.2 % (1.7-12.7); NRBC # 0.07 10*3/uL; Neutrophils % 71.4 % (38.7-73.9); Platelet Count 319 T/CUMM (130-400); Red Blood Count 2.87 MC/CUMM (3.8-5.5); White Blood Count 7.9 T/CUMM (4-12)
[2019-11-08 04:56] LABS: ABG Base Excess -6.1 MMOL/L (-2.5-2.5); ABG HCO3 22.8 MMOL/L (20-26); ABG Oxygen Saturation 88.6 % (95-100); ABG PCO2 64.6 MM HG (35-48); ABG PO2 65.6 MM HG (80-95); ABG TCO2 24.8 MMOL/L (23-27); Allen Test Positive; Pt O2 Delivery Device Ventilator
[2019-11-08 05:03] LABS: ABG PH 7.165 (7.35-7.45)
[2019-11-08 05:22] LABS: Calcium 8.6 MG/DL (8.5-10.1); Osmolality,Calculated 297.5 MOS/KG (273-304)
[2019-11-08 05:47] LABS: Band Neutrophils 5 % (0-10); Lymphocytes 19 % (20-55); Myelocytes 1 %; Segmented Neutrophils 68 % (50-85); Total Cells Counted 100
[2019-11-08 05:49] LABS: Microcytosis 1+
[2019-11-08 05:50] LABS: Anisocytosis 1+; Polychromasia Slight
[2019-11-08 05:51] LABS: Platelet Estimate Normal
[2019-11-08] MEDS: DOCUSATE SODIUM 100 MG/10 ML UDCUP PO SCH ×2 (09:14→20:47)
[2019-11-08] MEDS: ASPIRIN CHEW 81 MG TABLET PO SCH (09:14)
[2019-11-08] MEDS: FERROUS SULFATE 325 MG TABLET PO SCH ×2 (09:14→20:47)
[2019-11-08] MEDS: MENTHOL/ZINC OXIDE OINT 71 GM JAR TOP SCH ×2 (09:14→20:47)
[2019-11-08] MEDS: CLOPIDOGREL 75 MG TABLET PO SCH (09:15)
[2019-11-08] MEDS: SENNA 8.6 MG TABLET PO SCH ×2 (09:15→20:47)
[2019-11-08] MEDS: MONTELUKAST 10 MG TABLET PO SCH (09:15)
[2019-11-08] MEDS: GABAPENTIN 600 MG TABLET PO SCH ×2 (09:15→20:47)
[2019-11-08] MEDS: levETIRAcetam 500 MG TABLET PO SCH ×2 (09:15→20:47)
[2019-11-08] MEDS: ENOXAPARIN 80 MG/0.8 ML SYRINGE SUBCUT SCH ×2 (09:15→20:47)
[2019-11-08] MEDS: PANTOPRAZOLE 40 MG VIAL IV SCH (09:15)
[2019-11-08] MEDS: ASCORBIC ACID 500 MG TABLET PO SCH ×2 (09:15→20:47)
[2019-11-08] MEDS: BACLOFEN 10 MG TABLET PO SCH ×2 (09:15→20:47)
[2019-11-08] MEDS: CETIRIZINE 10 MG TABLET PO SCH (09:16)
[2019-11-08] MEDS: ZINC GLUCONATE 50 MG TABLET PO SCH ×2 (09:16→20:47)
[2019-11-08] MEDS: DEXAMETHASONE 4 MG/1 ML VIAL IV SCH (12:41)
[2019-11-08 18:08] VITALS: BP 120/63
[2019-11-08] MEDS: fentaNYL INJ 2,500 MCG in SODIUM CHLORIDE 0.9% 450 ML IV PRN (18:45)
[2019-11-08] MEDS: ATORVASTATIN 40 MG TABLET PO SCH (20:47)
[2019-11-09] MEDS: INSULIN LISPRO 100 UNIT/ML SUBCUT SCH ×4 (01:10→17:23)
[2019-11-09] MEDS: MINERAL OIL/PETROLATUM OPH OINT 3.5 GM TUBE BOTH EYES SCH ×3 (01:11→13:46)
[2019-11-09 04:01] LABS: Basophils % 0.4 % (0.0-0.8); Eosinophils % 0.6 % (0.00-10.9); Hematocrit 30.4 VOL% (42.0-52.0); Hemoglobin 9.2 GM/DL (14.0-18.0); Immature Granulocytes % 3.9 %; Immature Granulocytes Absolute 0.19 #; Lymphocytes # 0.9 10*3/uL (1.4-4.0); Mean Corpuscular HGB Conc 30.3 GM/DL (32-36); Mean Corpuscular Volume 98.4 FL (87-102); Mean Platelet Volume 10.7 FL (9.6-12.0); Monocytes % 21.2 % (1.7-12.7); Neutrophils % 54.9 % (38.7-73.9); Platelet Count 310 T/CUMM (130-400); Red Blood Count 3.09 MC/CUMM (3.8-5.5); Red Cell Distribution Width 15.4 % (9.3-17.3); White Blood Count 4.9 T/CUMM (4-12)
[2019-11-09 04:18] LABS: Calcium 8.5 MG/DL (8.5-10.1); Osmolality,Calculated 296.8 MOS/KG (273-304)
[2019-11-09 04:21] LABS: Band Neutrophils 5 % (0-10); Eosinophils 1 % (0-10); Hypochromasia Slight; Lymphocytes 35 % (20-55); Nucleated Red Blood Cells 2 (0-5); Platelet Estimate Normal; Segmented Neutrophils 51 % (50-85); Total Cells Counted 100
[2019-11-09 05:03] LABS: Allen Test Positive; Pt O2 Delivery Device Ventilator
[2019-11-09 05:04] LABS: ABG Base Excess -9.3 MMOL/L (-2.5-2.5); ABG HCO3 20.9 MMOL/L (20-26); ABG Oxygen Saturation 81.7 % (95-100); ABG PO2 56.8 MM HG (80-95); ABG TCO2 23.1 MMOL/L (23-27)
[2019-11-09] MEDS ORDERED: SODIUM POLYSTYRENE SULFATE 15 GM/60 ML BOTTLE PO ONE (05:59)
[2019-11-09] MEDS: NOREPINEPHRINE 8 MG in SODIUM CHLORIDE 0.9% 242 ML IV PRN (07:51)
[2019-11-09] MEDS: ENOXAPARIN 80 MG/0.8 ML SYRINGE SUBCUT SCH ×2 (08:16→20:12)
[2019-11-09] MEDS: SENNA 8.6 MG TABLET PO SCH ×2 (08:17→20:11)
[2019-11-09] MEDS: ZINC GLUCONATE 50 MG TABLET PO SCH ×2 (08:17→20:11)
[2019-11-09] MEDS: GABAPENTIN 600 MG TABLET PO SCH ×2 (08:17→20:11)
[2019-11-09] MEDS: DOCUSATE SODIUM 100 MG/10 ML UDCUP PO SCH ×2 (08:17→20:11)
[2019-11-09] MEDS: FERROUS SULFATE 325 MG TABLET PO SCH ×2 (08:17→20:11)
[2019-11-09] MEDS: MONTELUKAST 10 MG TABLET PO SCH (08:17)
[2019-11-09] MEDS: levETIRAcetam 500 MG TABLET PO SCH ×2 (08:18→20:11)
[2019-11-09] MEDS: ASPIRIN CHEW 81 MG TABLET PO SCH (08:18)
[2019-11-09] MEDS: PANTOPRAZOLE 40 MG VIAL IV SCH (08:18)
[2019-11-09] MEDS: ASCORBIC ACID 500 MG TABLET PO SCH ×2 (08:18→20:11)
[2019-11-09] MEDS: CETIRIZINE 10 MG TABLET PO SCH (08:19)
[2019-11-09] MEDS: CLOPIDOGREL 75 MG TABLET PO SCH (08:19)
[2019-11-09] MEDS: BACLOFEN 10 MG TABLET PO SCH ×2 (08:19→20:11)
[2019-11-09] MEDS: MENTHOL/ZINC OXIDE OINT 71 GM JAR TOP SCH ×2 (08:22→20:12)
[2019-11-09] MEDS ORDERED: SODIUM POLYSTYRENE SULFATE 15 GM/60 ML BOTTLE RECTAL ONE (09:00)
[2019-11-09] MEDS: DEXAMETHASONE 4 MG/1 ML VIAL IV SCH (14:00)
[2019-11-09 14:01] LABS: Hepatitis B Core IgM Quant 0.26 Index; Hepatitis B Surface Ag Quant < 0.10 Index; Hepatitis B Surface Ag Result Negative (Negative); Hepatitis C Virus Ab Quant 0.08 Index; Hepatitis C Virus Ab Result Negative (Negative)
[2019-11-09] MEDS: fentaNYL INJ 2,500 MCG in SODIUM CHLORIDE 0.9% 450 ML IV PRN (15:00)
[2019-11-09] MEDS: NOREPINEPHRINE 16 MG in SODIUM CHLORIDE 0.9% 234 ML IV PRN ×2 (15:21→22:06)
[2019-11-09] MEDS ORDERED: ALBUMIN 25% 25 GM in PREMIX 1 EACH IV ONE (16:16)
[2019-11-09] MEDS: ATORVASTATIN 40 MG TABLET PO SCH (20:12)
[2019-11-10] MEDS: INSULIN LISPRO 100 UNIT/ML SUBCUT SCH (00:15)
== END 2019-11-10 01:11 | disposition expired | DRG 207 ==
LOC: EDBD → EDUNIT# → N.ED 16:49 → SUATTDRO 19:57 → N.EDINP 19:57 → N.2E 10-17 15:34 → N.CC 10-19 17:07
PROVIDERS: ADMIT Family Medicine; ATTEND Internal Medicine